=== PATIENT | female | born 1985 | race Caucasian/White ===

== ENCOUNTER 2024-06-05 08:09 | Emergency (ER) | payer BC ==
--- OUTSIDE RECORDS SUMMARY | 2024-06-05 08:13 | XMS REPORT | Continuity of Care Document ---
Author Name Unknown Address [address] [facility] [address] [place] [address] [facility] Address [address] [facility] [address] [place] [address] Care Team Providers Care Ob/Gyn Name Role Phone Rekha Loredo Primary Care Physician + [phone] SIMONA VIDAL Attending Clinician Unavailable ASPEN PERLA Attending Clinician Unavailable ASPEN PERLA Attending Clinician Unavailable Doctor Unassigned, Anselmo Attending Clinician U Aspen Carrizales MD Attending Clinician [phone] Rekha Loredo Attending Clinician [phone] KIA DOS SANTOS Attending Clinician Unavailab Aleja Valderrama PA-C Attending Clinician [phone] FLOWER MILLER Attending Clinician Unavailable Doctor Unassigned, Anselmo Attending Clinician U ALEJA Venegas Attending Clinician Unavailable Unknown, Attending Attending Clinician Unavailab Kia Yoon DNP Attending Clinician + [phone] REKHA WHITTAKER Attending Clinician Unavailable Pob, Adc Lab Main Attending Clinician Unavailabl e Lab, Ang - Db Attending Clinician Unavailable LIV QUEEN Attending Clinician Unavailable Rose Metzger MD Attending Clinician + [phone] ROSE METZGER Attending Clinician Unavaila ROSE Garcia Attending Clinician UnavailLiv Boles MD Attending Clinician [phone] GLADIS DIDIJERRY Attending Clinician Unavailable ASHLIE FERRELL Attending Clinician Unavaila NISHANT SparksO F Attending Clinician Unavaila daniel Loweunle [employer] Attending Clinician Nurse, [facility] Attending Clinician Un available ERNESTO TOLBERT III Attending Clinician UnavailErnesto Nava MD Attending Clinician + [phone] Sima Queen MD Attending Clinician Unavailradha Arango MD, Tiffany Auguste Attending Clinician + [phone] Marika Borjas LVN Attending Clinician [facility], [facility] Attending Clinician UnavailTIFFANY Veliz Attending Clinician UnavailSimona Gonzalez MD Attending Clinician [phone] DALE PADRON Attending Clinician Unavailable SIMONA VIDAL Admitting Clinician Unavailable ASPEN PERLA Admitting Clinician Unavailable ASPEN PERLA Admitting Clinician Unavailable BARTOLO MARISCAL Admitting Clinician Unavaila LIV Wilkes Admitting Clinician Unavailable Payers Payer Name Policy Type Policy Number Effective Date Expirati on Date Source [facility] [id number] 2018 00:00:00 Problems Condition Name Condition Details Condition Category Status Onset Date Resolution Date Last Treatment Date Treating Clinician Comments Source Presence of intrauteri ne contracept segun device Presence of intrauteri ne contracept segun device Disease Active 05-04 00:00: 00 [facility] Menorrhagi a with regular cycle Menorrhagi a with regular cycle Disease Active 05-26 00:00: 00 [facility] Obesity, Class I, BMI 30-34.9 Obesity, Class I, BMI 30-34.9 Disease Active - 00:00: 00 [facility] Obstructiv e sleep apnea syndrome Obstructiv e sleep apnea syndrome Disease Active 02-24 00:00: 00 [facility] COVID-19 vaccine series declined COVID-19 vaccine series declined Disease Active 2-11 00:00: 00 [facility] Thyroiditi s, autoimmune Thyroiditi s, autoimmune Disease Active 8-08 00:00: 00 [facility] Prediabete s Prediabete s Disease Active 05-14 00:00: 00 [facility] Iron deficiency anemia due to chronic blood loss Iron deficiency anemia due to chronic blood loss Disease Active 05-14 00:00: 00 [facility] Anxiety and depression Anxiety and depression Disease Active 2018-10 00:00: 00 [facility] Tinnitus of right ear Tinnitus of right ear Disease Active 2018-10 00:00: 00 [facility] Vertigo Vertigo Disease Active 11-30 00:00: 00 [facility] Allergic rhinitis Allergic rhinitis Disease Active [facility] Migraines Migraines Disease Active [facility] Low HDL (under 40) Low HDL (under 40) Disease Active [facility] Rectal bleeding Rectal bleeding Disease Resolve d 2019-10 00:00: 00 2024-02-23 00:00:00 2024-02-23 10:32:15 Overview: Formattin g of this note might be different from the original. Added automatic ally from request for surgery [id number] [facility] Right ear pain Right ear pain Disease Resolve d 2018-10 00:00: 00 2020-06-19 00:00:00 2020-06-19 14:47:38 [facility] Forgetfuln ess Forgetfuln ess Disease Resolve d 2018-10 00:00: 00 2019-11-08 00:00:00 2019-11-08 10:22:22 [facility] Allergies, Adverse Reactions, Alerts Allergy Name Allergy Type Status Severity Reaction(s) Onset Date Inactive Date Treating Clinician Comments Source CIPROFLO XACIN DRUG INGREDI Active Unknown-Cmnt 02-22 00:00: 00 [facility] Ciproflo xacin Propensi ty to adverse reaction s Active Unknown - See comments - 00:00: 00 [facility] LIRAGLUT AILIN (WEIGHT LOSS) DRUG Active N/V 2-16 00:00: 00 [facility] Liraglut ailin (Weight Loss) Propensi ty to adverse reaction s Active Unknown - See comments 2-16 00:00: 00 Body aches, cramps [facility] Amoxicil simba Propensi ty to adverse reaction s Active Hives 2018-10 00:00: 00 [facility] AMOXICIL SIMBA DRUG INGREDI Active Hives 2018-1 11-20 00:00: 00 [facility] Clindamy nick Propensi ty to adverse reaction s Active Anaphylaxis 2018-0 04-26 00:00: 00 [facility] Penicill ins Propensi ty to adverse reaction s Active Anaphylaxis 2018-0 04-26 00:00: 00 ALL CILLINS [facility] CLINDAMY NICK DRUG INGREDI Active Anaphylaxis 2018-0 04-26 00:00: 00 [facility] CEPHALEX IN DRUG INGREDI Active Anaphylaxis 2018-0 04-26 00:00: 00 [facility] PENICILL INS Drug Class Active Anaphylaxis 2018-0 04-26 00:00: 00 [facility] Cephalex in Propensi ty to adverse reaction s Active Anaphylaxis 2018-0 04-26 00:00: 00 [facility] Social History Social Habit Start Date Stop Date Quantity Comments Source History of tobacco use Cigarette Smoker [facility] Gender identity [facility] History SDOH Alcohol Std Drinks [facility] History SDOH Alcohol Comment [place] [facility] Alcoholic beverage intake 2024-05-20 00:00:00 2024-05-20 00:00:00 Ex-drinker (finding) [facility] Tobacco use and exposure 2024-03-12 00:00:00 2024-03-12 00:00:00 Smokeless tobacco non-user [facility] History of Social function 2024-03-01 00:00:00 2024-03-01 00:00:00 [facility] Alcohol intake 2024-03-01 00:00:00 2024-03-01 00:00:00 Ex-drinker (finding) [facility] Cigarettes smoked current (pack per day) - Reported 2023-05-04 00:00:00 2023-05-04 00:00:00 [facility] Exposure to SARS-CoV-2 (event) 2023-04-16 00:00:00 2023-04-26 08:31:00 Not sure [facility] Tobacco Comment 2022-12-15 00:00:00 2022-12-15 00:00:00 Occasional. Not daily. [facility] History SDOH Alcohol Frequency 2019-04-26 00:00:00 2019-04-26 00:00:00 2 [facility] History SDOH Alcohol Binge 2019-04-26 00:00:00 2019-04-26 00:00:00 2 [facility] Sex assigned at 1985 00:00:00 1985 00:00:00 [facility] Smoking Status Start Date Stop Date Source Ex-smoker 2024-03-12 00:00:00 [facility]24[facility]03[facility]12 [facility] 2019-04-26 00:00:00 [facility] Medications Ordered Medication Name Filled Medication Name Start Date Stop Date Current Medication? Ordering Clinician Indication Dosage Frequency Signature (SIG) Comments Components Source BUSPIRONE 5 mg tablet 04-24 00:00: 00 Yes [id number] TAKE ONE (1) TABLET BY MOUTH 2 (TWO) TIMES DAILY NEEDED. [facility] cetirizine 10 mg tablet 03-28 00:00: 00 Yes [id number] 10mg Take 1 tablet by mouth in the morning. [facility] bromphenira mine-pseudo ephedrine-D M (BROMFED DM) 2-30-10 mg/5 mL syrup 03-28 00:00: 00 Yes [id number] 5mL Take 5 mL by mouth 3 (three) times daily as needed for Cold symptoms or Cough. [facility] fluticasone propionate 50 mcg/actuati on nasal spray 03-28 00:00: 00 Yes [id number] 2{spray } Use 2 Sprays in each nostril in the morning. [facility] ibuprofen 800 mg tablet 03-28 00:00: 00 Yes [id number] 800mg Take 1 tablet by mouth in the morning and 1 tablet at noon and 1 tablet in the evening. Take with meals. [facility] fexofenadin e HCl (ARIANA ORAL) 03-12 16:07: 19 Yes Take by mouth. [facility] propranoloL 20 mg tablet 03-12 00:00: 00 Yes [id number] 20mg Take 1 tablet by mouth in the morning. [facility] sumatriptan 100 mg tablet 03-12 00:00: 00 Yes [id number] 100mg Take 1 tablet by mouth as needed for Migraine (Max of 2 tablets/da y.). [facility] meclizine 12.5 mg tablet 03-12 00:00: 00 Yes [id number] 12.5mg Take 1 tablet by mouth 3 (three) times daily as needed for Dizziness. [facility] INTRAUTERIN E DEVICE, IUD, INTRAUTERIN E 03-01 15:03: 47 Yes by Intrauteri ne route. [facility] fexofenadin e HCl (ARIANA ORAL) 03-01 15:03: 47 Yes Take by mouth. [facility] methocarbam oL 500 mg tablet 03-01 00:00: 00 Yes [id number] 500mg Take 1 tablet by mouth 2 (two) times daily as needed (back pain/spasm ). [facility] busPIRone 5 mg tablet 03-01 00:00: 00 04-24 00:00 :00 No [id number] 5mg Take 1 tablet by mouth 2 (two) times daily as needed (anxiety). [facility] methylPREDN ISolone 4 mg tablets 04-23 00:00: 00 Yes 10mg Take 10 mg by mouth. [facility] hydrOXYzine 25 mg tablet 6-21 00:00: 00 Yes TAKE ONE (1) TABLET(S) BY MOUTH EVERY FOUR TO SIX HOURS. [facility] orlistat 60 mg capsule 5-05 00:00: 00 Yes [id number] 60mg Take 1 capsule by mouth in the morning and 1 capsule at noon and 1 capsule in the evening. Take with meals. [facility] busPIRone 5 mg tablet 3-16 00:00: 00 Yes [id number] 5mg Take 1 tablet by mouth 2 (two) times daily as needed (anxiety). [facility] loratadine 10 mg tablet 16 00:00: 00 Yes [id number] 10mg Take 1 tablet by mouth in the morning. [facility] FLUoxetine 10 mg capsule 12-15 14:30: 15 12-15 00:00 :00 No 10mg Take 10 mg by mouth in the morning. [facility] ketorolac (TORADOL) injection 30 mg 16 03:00: 00 12-15 02:04 :00 No 30mg 30 mg, Slow IV Push, ONCE, 1 dose, On Mon12/14/22 at 2100, Routine [facility] acetaminoph en (TYLENOL) tablet 1,000 mg 12-15 01:30: 00 12-15 01:19 :00 No 1000mg 1,000 mg, Oral, ONCE, 1 dose, On Mon12/14/22 at 1930, Routine [facility] NaCl 0.9% (NS) bolus infusion 1,000 mL 16 01:15: 00 12-15 03:04 :00 No 1000mL at 999 mL/hr, 1,000 mL, IV Infusion, ONCE, 1 dose, On Mon12/14/22 at 1915, KAIN [facility] busPIRone 5 mg tablet 16 00:00: 00 01-12 00:00 :00 No [id number] 5mg Take 1 tablet by mouth 2 (two) times daily as needed (anxiety). [facility] ibuprofen 600 mg tablet 2-15 00:00: 00 Yes [id number] 600mg Take 1 tablet by mouth every 6 (six) hours as needed for Pain (scale 4-6). [facility] BUSPIRONE 15 mg tablet 1-19 00:00: 00 12-15 00:00 :00 No [id number] TAKE ONE (1) TABLET(S) BY MOUTH TWICE A DAY NEEDED FOR ANXIETY. [facility] BUSPIRONE 15 mg tablet 2021-10 2-14 00:00: 00 Yes [id number] TAKE ONE (1) TABLET BY MOUTH 2 TIMES DAILY NEEDED FOR (ANXIETY). [facility] busPIRone 15 mg tablet 2021-10-11 00:00: 00 10-12 00:00 :00 No [id number] 15mg Take 1 tablet by mouth 2 (two) times daily as needed (anxiety). Follow-up for refills and fasting labs. [facility] liraglutide , weight loss, (SAXENDA) 3 mg/0.5 mL (18 mg/3 mL) PnIj 2021-10 00:00: 00 12-15 00:00 :00 No [id number] 4107 Take 0.6mg daily for a week , then increase to 1.2mg daily for a week if tolerate, then increase to 1.8mg daily for a week if tolerate, then increase to 2.4mg daily for a week if tolerate, then increase to 3.0mg dailymax dose tolerate, [facility] FEXOFENADIN E 180 mg tablet 2021-10- 00:00: 00 01-12 00:00 :00 No [id number] TAKE ONE (1) TABLET(S) BY MOUTH ONCE A DAY. [facility] FLUoxetine 10 mg capsule 2021-10 0 15:40: 39 Yes 10mg Take 10 mg by mouth in the morning. [facility] levonorgest reL (KYLEENA) IUD 1 Device 06-29 22:45: 06-29 22:18 :00 No [id number] 1{devic e} [facility] BUSPIRONE 15 mg tablet 8 00:00: 09-09 00:00 :00 No [id number] TAKE ONE-HALF TO ONE (1/2 TO 1) TABLET(S) BY MOUTH TWICE A DAY NEEDED FOR ANXIETY. [facility] medroxyPROG ESTERone (PROVERA) 10 mg tablet 05-26 00:00: 00 06-29 00:00 :00 No [id number] 20mg Take 2 tablets by mouth in the morning. [facility] miSOPROStoL 200 mcg tablet 05-26 00:00: 00 06-29 00:00 :00 No [id number] 200ug Take 1 tablet by mouth SEE-INSTRU CTIONS. Take one tab the night before and one tab the morning of procedure [facility] miSOPROStoL 200 mcg tablet 5-24 00:00: 00 04-07 00:00 :00 No [id number] Take one tablet night before procedure, then take one tablet morning of procedure [facility] FEXOFENADIN E 180 mg tablet 02-23 00:00: 00 09-05 00:00 :00 No [id number] TAKE ONE (1) TABLET(S) BY MOUTH ONCE A DAY. [facility] BUSPIRONE 15 mg tablet 02-23 00:00: 00 05-31 00:00 :00 No [id number] TAKE 1/2 TO 1 TABLET TWICE DAILY NEED FOR ANXIETY. [facility] FEXOFENADIN E 180 mg tablet 2020-10 2-20 00:00: 00 02-23 00:00 :00 No [id number] TAKE ONE (1) TABLET(S) BY MOUTH ONCE A DAY. [facility] FLUTICASONE PROPIONATE 50 mcg/actuati on nasal spray 05-02 00:00: 00 03-12 00:00 :00 No [id number] INSTILL TWO (2) SPRAY(S) INTO EACH NOSTRIL ONCE A DAY. [facility] BUSPIRONE 15 mg tablet -28 00:00: 02-23 00:00 :00 No [id number] TAKE 1/2 TO 1 TABLET TWICE DAILY NEED FOR ANXIETY. [facility] FEXOFENADIN E 180 mg tablet 2019-10 00:00: 10-18 00:00 :00 No [id number] TAKE ONE (1) TABLET(S) BY MOUTH ONCE A DAY. [facility] FLUTICASONE PROPIONATE 50 mcg/actuati on nasal spray 2019-10 00:00: 00 05-02 00:00 :00 No [id number] INSTILL TWO (2) SPRAY(S) INTO EACH NOSTRIL ONCE A DAY. [facility] busPIRone 15 mg tablet 2019-10 00:00: 02-24 00:00 :00 No [id number] 7.5mg Take 0.5-1 tablets by mouth 2 (two) times daily as needed (anxiety). [facility] FLUoxetine 20 mg capsule 2019-10 00:00: 11-09 00:00 :00 No [id number] 20mg Take 1 capsule by mouth every morning. [facility] Ferrous Fumarate (FERROCITE) 324 mg (106 mg iron) Tab 8- 00:00: 00 12-10 00:00 :00 No [id number] 1{tbl} Take 1 tablet by mouth daily. Take with a source of vitamin C [facility] FLUoxetine 10 mg capsule 7-09 00:00: 00 09-18 00:00 :00 No [id number] 10mg Take 1 capsule by mouth daily. [facility] fluticasone propionate 50 mcg/actuati on nasal spray 2018-10 00:00: 00 10-15 00:00 :00 No [id number] 2{spray } Use 2 Sprays in each nostril daily. [facility] fexofenadin e 180 mg tablet 2018-10 00:00: 00 10-15 00:00 :00 No [id number] 180mg Take 1 tablet by mouth daily. [facility] Immunizations Ordered Immunization Name Filled Immunization Name Date Status Comments Source TDAP 2020-08-27 00:00:00 Completed [facility] TDAP 2020-08-27 00:00:00 Completed [facility] TDAP 2020-08-27 00:00:00 Completed [facility] TDAP 2020-08-27 00:00:00 Completed [facility] TDAP 2020-08-27 00:00:00 Completed [facility] TDAP 2020-08-27 00:00:00 Completed [facility] TDAP 2020-08-27 00:00:00 Completed [facility] TDAP 2020-08-27 00:00:00 Completed [facility] TDAP 2020-08-27 00:00:00 Completed [facility] TDAP 2020-08-27 00:00:00 Completed [facility] TDAP 2020-08-27 00:00:00 Completed [facility] TDAP 2020-08-27 00:00:00 Completed [facility] TDAP 2020-08-27 00:00:00 Completed [facility] TDAP 2020-08-27 00:00:00 Completed [facility] TDAP 2020-08-27 00:00:00 Completed [facility] TDAP 2020-08-27 00:00:00 Completed [facility] TDAP 2020-08-27 00:00:00 Completed [facility] TDAP 2020-08-27 00:00:00 Completed [facility] TDAP 2020-08-27 00:00:00 Completed [facility] TDAP 2020-08-27 00:00:00 Completed [facility] TDAP 2020-08-27 00:00:00 Completed [facility] TDAP 2020-08-27 00:00:00 Completed [facility] TDAP 2020-08-27 00:00:00 Completed [facility] TDAP 2020-08-27 00:00:00 Completed [facility] TDAP 2020-08-27 00:00:00 Completed [facility] TDAP 2020-08-27 00:00:00 Completed [facility] TDAP 2020-08-27 00:00:00 Completed [facility] TDAP 2020-08-27 00:00:00 Completed [facility] TDAP 2020-08-27 00:00:00 Completed [facility] TDAP 2020-08-27 00:00:00 Completed [facility] TDAP 2020-08-27 00:00:00 Completed [facility] TDAP 2020-08-27 00:00:00 Completed [facility] TDAP 2020-08-27 00:00:00 Completed [facility] TDAP 2020-08-27 00:00:00 Completed [facility] TDAP 2020-08-27 00:00:00 Completed [facility] TDAP 2020-08-27 00:00:00 Completed [facility] TDAP 2020-08-27 00:00:00 Completed [facility] TDAP 2020-08-27 00:00:00 Completed [facility] Pneumococcal Polysaccharide, PPSV23 (PNEUMOVAX) 2020-05-07 00:00:00 Completed [facility] Pneumococcal Polysaccharide, PPSV23 (PNEUMOVAX) 2020-05-07 00:00:00 Completed [facility] Pneumococcal Polysaccharide, PPSV23 (PNEUMOVAX) 2020-05-07 00:00:00 Completed [facility] Pneumococcal Polysaccharide, PPSV23 (PNEUMOVAX) 2020-05-07 00:00:00 Completed [facility] Pneumococcal Polysaccharide, PPSV23 (PNEUMOVAX) 2020-05-07 00:00:00 Completed [facility] Pneumococcal Polysaccharide, PPSV23 (PNEUMOVAX) 2020-05-07 00:00:00 Completed [facility] Pneumococcal Polysaccharide, PPSV23 (PNEUMOVAX) 2020-05-07 00:00:00 Completed [facility] Pneumococcal Polysaccharide, PPSV23 (PNEUMOVAX) 2020-05-07 00:00:00 Completed [facility] Pneumococcal Polysaccharide, PPSV23 (PNEUMOVAX) 2020-05-07 00:00:00 Completed [facility] Pneumococcal Polysaccharide, PPSV23 (PNEUMOVAX) 2020-05-07 00:00:00 Completed [facility] Pneumococcal Polysaccharide, PPSV23 (PNEUMOVAX) 2020-05-07 00:00:00 Completed [facility] Pneumococcal Polysaccharide, PPSV23 (PNEUMOVAX) 2020-05-07 00:00:00 Completed [facility] Pneumococcal Polysaccharide, PPSV23 (PNEUMOVAX) 2020-05-07 00:00:00 Completed [facility] Pneumococcal Polysaccharide, PPSV23 (PNEUMOVAX) 2020-05-07 00:00:00 Completed [facility] Pneumococcal Polysaccharide, PPSV23 (PNEUMOVAX) 2020-05-07 00:00:00 Completed [facility] Pneumococcal Polysaccharide, PPSV23 (PNEUMOVAX) 2020-05-07 00:00:00 Completed [facility] Pneumococcal Polysaccharide, PPSV23 (PNEUMOVAX) 2020-05-07 00:00:00 Completed [facility] Pneumococcal Polysaccharide, PPSV23 (PNEUMOVAX) 2020-05-07 00:00:00 Completed [facility] Pneumococcal Polysaccharide, PPSV23 (PNEUMOVAX) 2020-05-07 00:00:00 Completed [facility] Pneumococcal Polysaccharide, PPSV23 (PNEUMOVAX) 2020-05-07 00:00:00 Completed [facility] Pneumococcal Polysaccharide, PPSV23 (PNEUMOVAX) 2020-05-07 00:00:00 Completed [facility] Pneumococcal Polysaccharide, PPSV23 (PNEUMOVAX) 2020-05-07 00:00:00 Completed [facility] Pneumococcal Polysaccharide, PPSV23 (PNEUMOVAX) 2020-05-07 00:00:00 Completed [facility] Pneumococcal Polysaccharide, PPSV23 (PNEUMOVAX) 2020-05-07 00:00:00 Completed [facility] Pneumococcal Polysaccharide, PPSV23 (PNEUMOVAX) 2020-05-07 00:00:00 Completed [facility] Pneumococcal Polysaccharide, PPSV23 (PNEUMOVAX) 2020-05-07 00:00:00 Completed [facility] Pneumococcal Polysaccharide, PPSV23 (PNEUMOVAX) 2020-05-07 00:00:00 Completed [facility] Pneumococcal Polysaccharide, PPSV23 (PNEUMOVAX) 2020-05-07 00:00:00 Completed [facility] Pneumococcal Polysaccharide, PPSV23 (PNEUMOVAX) 2020-05-07 00:00:00 Completed [facility] Pneumococcal Polysaccharide, PPSV23 (PNEUMOVAX) 2020-05-07 00:00:00 Completed [facility] Pneumococcal Polysaccharide, PPSV23 (PNEUMOVAX) 2020-05-07 00:00:00 Completed [facility] Pneumococcal Polysaccharide, PPSV23 (PNEUMOVAX) 2020-05-07 00:00:00 Completed [facility] Pneumococcal Polysaccharide, PPSV23 (PNEUMOVAX) 2020-05-07 00:00:00 Completed [facility] Pneumococcal Polysaccharide, PPSV23 (PNEUMOVAX) 2020-05-07 00:00:00 Completed [facility] Pneumococcal Polysaccharide, PPSV23 (PNEUMOVAX) 2020-05-07 00:00:00 Completed [facility] Pneumococcal Polysaccharide, PPSV23 (PNEUMOVAX) 2020-05-07 00:00:00 Completed [facility] Pneumococcal Polysaccharide, PPSV23 (PNEUMOVAX) 2020-05-07 00:00:00 Completed [facility] Pneumococcal Polysaccharide, PPSV23 (PNEUMOVAX) 2020-05-07 00:00:00 Completed [facility] Pneumococcal Polysaccharide, PPSV23 (PNEUMOVAX) Unknown Completed [facility] TDAP Unknown Completed [facility] Pneumococcal Polysaccharide, PPSV23 (PNEUMOVAX) Unknown Completed [facility] TDAP Unknown Completed [facility] Pneumococcal Polysaccharide, PPSV23 (PNEUMOVAX) Unknown Completed [facility] TDAP Unknown Completed [facility] Pneumococcal Polysaccharide, PPSV23 (PNEUMOVAX) Unknown Completed [facility] TDAP Unknown Completed [facility] Pneumococcal Polysaccharide, PPSV23 (PNEUMOVAX) Unknown Completed [facility] TDAP Unknown Completed [facility] Pneumococcal Polysaccharide, PPSV23 (PNEUMOVAX) Unknown Completed [facility] TDAP Unknown Completed [facility] Pneumococcal Polysaccharide, PPSV23 (PNEUMOVAX) Unknown Completed [facility] TDAP Unknown Completed [facility] Pneumococcal Polysaccharide, PPSV23 (PNEUMOVAX) Unknown Completed [facility] TDAP Unknown Completed [facility] Pneumococcal Polysaccharide, PPSV23 (PNEUMOVAX) Unknown Completed [facility] TDAP Unknown Completed [facility] Pneumococcal Polysaccharide, PPSV23 (PNEUMOVAX) Unknown Completed [facility] TDAP Unknown Completed [facility] Pneumococcal Polysaccharide, PPSV23 (PNEUMOVAX) Unknown Completed [facility] Pneumococcal Polysaccharide, PPSV23 (PNEUMOVAX) Unknown Completed [facility] TDAP Unknown Completed [facility] Pneumococcal Polysaccharide, PPSV23 (PNEUMOVAX) Unknown Completed [facility] TDAP Unknown Completed [facility] Pneumococcal Polysaccharide, PPSV23 (PNEUMOVAX) Unknown Completed [facility] TDAP Unknown Completed [facility] Pneumococcal Polysaccharide, PPSV23 (PNEUMOVAX) Unknown Completed [facility] TDAP Unknown Completed [facility] Pneumococcal Polysaccharide, PPSV23 (PNEUMOVAX) Unknown Completed [facility] TDAP Unknown Completed [facility] Pneumococcal Polysaccharide, PPSV23 (PNEUMOVAX) Unknown Completed [facility] TDAP Unknown Completed [facility] Pneumococcal Polysaccharide, PPSV23 (PNEUMOVAX) Unknown Completed [facility] TDAP Unknown Completed [facility] Pneumococcal Polysaccharide, PPSV23 (PNEUMOVAX) Unknown Completed [facility] TDAP Unknown Completed [facility] Pneumococcal Polysaccharide, PPSV23 (PNEUMOVAX) Unknown Completed [facility] TDAP Unknown Completed [facility] Pneumococcal Polysaccharide, PPSV23 (PNEUMOVAX) Unknown Completed [facility] TDAP Unknown Completed [facility] Pneumococcal Polysaccharide, PPSV23 (PNEUMOVAX) Unknown Completed [facility] TDAP Unknown Completed [facility] Pneumococcal Polysaccharide, PPSV23 (PNEUMOVAX) Unknown Completed [facility] TDAP Unknown Completed [facility] Pneumococcal Polysaccharide, PPSV23 (PNEUMOVAX) Unknown Completed [facility] TDAP Unknown Completed [facility] Pneumococcal Polysaccharide, PPSV23 (PNEUMOVAX) Unknown Completed [facility] TDAP Unknown Completed [facility] Pneumococcal Polysaccharide, PPSV23 (PNEUMOVAX) Unknown Completed [facility] TDAP Unknown Completed [facility] Pneumococcal Polysaccharide, PPSV23 (PNEUMOVAX) Unknown Completed [facility] TDAP Unknown Completed [facility] Pneumococcal Polysaccharide, PPSV23 (PNEUMOVAX) Unknown Completed [facility] TDAP Unknown Completed [facility] Pneumococcal Polysaccharide, PPSV23 (PNEUMOVAX) Unknown Completed [facility] TDAP Unknown Completed [facility] Pneumococcal Polysaccharide, PPSV23 (PNEUMOVAX) Unknown Completed [facility] TDAP Unknown Completed [facility] Pneumococcal Polysaccharide, PPSV23 (PNEUMOVAX) Unknown Completed [facility] TDAP Unknown Completed [facility] Pneumococcal Polysaccharide, PPSV23 (PNEUMOVAX) Unknown Completed [facility] TDAP Unknown Completed [facility] Pneumococcal Polysaccharide, PPSV23 (PNEUMOVAX) Unknown Completed [facility] TDAP Unknown Completed [facility] Pneumococcal Polysaccharide, PPSV23 (PNEUMOVAX) Unknown Completed [facility] TDAP Unknown Completed [facility] Pneumococcal Polysaccharide, PPSV23 (PNEUMOVAX) Unknown Completed [facility] TDAP Unknown Completed [facility] Pneumococcal Polysaccharide, PPSV23 (PNEUMOVAX) Unknown Completed [facility] TDAP Unknown Completed [facility] Pneumococcal Polysaccharide, PPSV23 (PNEUMOVAX) Unknown Completed [facility] TDAP Unknown Completed [facility] Pneumococcal Polysaccharide, PPSV23 (PNEUMOVAX) Unknown Completed [facility] TDAP Unknown Completed [facility] Pneumococcal Polysaccharide, PPSV23 (PNEUMOVAX) Unknown Completed [facility] TDAP Unknown Completed [facility] Pneumococcal Polysaccharide, PPSV23 (PNEUMOVAX) Unknown Completed [facility] TDAP Unknown Completed [facility] Pneumococcal Polysaccharide, PPSV23 (PNEUMOVAX) Unknown Completed [facility] TDAP Unknown Completed [facility] Pneumococcal Polysaccharide, PPSV23 (PNEUMOVAX) Unknown Completed [facility] TDAP Unknown Completed [facility] Pneumococcal Polysaccharide, PPSV23 (PNEUMOVAX) Unknown Completed [facility] TDAP Unknown Completed [facility] Vital Signs Vital Name Observation Time Observation Value Comments S ource Systolic blood pressure 2024-05-20 20:25:00 124 mm[Hg] [facility] Diastolic blood pressure 2024-05-20 20:25:00 83 mm[Hg] [facility] Heart rate 2024-05-20 20:25:00 105 /min [facility] Body temperature 2024-05-20 20:25:00 36.56 Beronica [facility] Respiratory rate 2024-05-20 20:25:00 16 /min [facility] Body height 2024-05-20 20:25:00 154.9 cm [facility] Body weight 2024-05-20 20:25:00 85.276 kg [facility] BMI 2024-05-20 20:25:00 35.52 kg/m2 [facility] Systolic blood pressure 2024-03-28 23:41:00 127 mm[Hg] [facility] Diastolic blood pressure 2024-03-28 23:41:00 84 mm[Hg] [facility] Heart rate 2024-03-28 23:41:00 59 /min [facility] Body temperature 2024-03-28 23:41:00 36.89 Beronica [facility] Respiratory rate 2024-03-28 23:41:00 17 /min [facility] Body weight 2024-03-28 23:41:00 82.691 kg [facility] BMI 2024-03-28 23:41:00 34.45 kg/m2 [facility] Oxygen saturation in Arterial blood by Pulse oximetry 2024-03-28 23:41:00 100 /min [facility] Body temperature 2024-03-18 14:42:00 36.56 Beronica [facility] Body height 2024-03-18 14:42:00 154.9 cm [facility] Body weight 2024-03-18 14:42:00 83.054 kg Univ [facility] BMI 2024-03-18 14:42:00 34.60 kg/m2 [facility] Systolic blood pressure 2024-03-12 21:01:00 117 mm[Hg] [facility] Diastolic blood pressure 2024-03-12 21:01:00 80 mm[Hg] [facility] Heart rate 2024-03-12 21:01:00 94 /min [facility] Respiratory rate 2024-03-12 21:01:00 18 /min [facility] Body height 2024-03-12 21:01:00 154.9 cm [facility] Body weight 2024-03-12 21:01:00 84.278 kg [facility] BMI 2024-03-12 21:01:00 35.11 kg/m2 [facility] Systolic blood pressure 2024-03-01 19:00:00 111 mm[Hg] [facility] Diastolic blood pressure 2024-03-01 19:00:00 71 mm[Hg] [facility] Heart rate 2024-03-01 19:00:00 98 /min [facility] Body temperature 2024-03-01 19:00:00 36.89 Beronica [facility] Body height 2024-03-01 19:00:00 154.9 cm [facility] Body weight 2024-03-01 19:00:00 83.915 kg [facility] BMI 2024-03-01 19:00:00 34.96 kg/m2 [facility] Oxygen saturation in Arterial blood by Pulse oximetry 2024-03-01 19:00:00 98 /min [facility] Systolic blood pressure 2024-03-01 18:57:00 111 mm[Hg] [facility] Diastolic blood pressure 2024-03-01 18:57:00 71 mm[Hg] [facility] Heart rate 2024-03-01 18:57:00 98 /min [facility] Body temperature 2024-03-01 18:57:00 36.89 Beronica [facility] Body height 2024-03-01 18:57:00 154.9 cm Univ [facility] Body weight 2024-03-01 18:57:00 83.915 kg [facility] BMI 2024-03-01 18:57:00 34.96 kg/m2 Univ [facility] Oxygen saturation in Arterial blood by Pulse oximetry 2024-03-01 18:57:00 98 /min [facility] Systolic blood pressure 2023-05-04 20:10:00 118 mm[Hg] [facility] Diastolic blood pressure 2023-05-04 20:10:00 78 mm[Hg] [facility] Heart rate 2023-05-04 20:10:00 99 /min [facility] Body temperature 2023-05-04 20:10:00 36.89 Beronica [facility] Body height 2023-05-04 20:10:00 154.9 cm Univ [facility] Body weight 2023-05-04 20:10:00 80.559 kg Univ [facility] BMI 2023-05-04 20:10:00 33.56 kg/m2 [facility] Systolic blood pressure 2023-04-26 16:28:00 110 mm[Hg] [facility] Diastolic blood pressure 2023-04-26 16:28:00 75 mm[Hg] [facility] Heart rate 2023-04-26 16:28:00 73 /min [facility] Respiratory rate 2023-04-26 16:28:00 19 /min [facility] Body height 2023-04-26 16:28:00 154.9 cm [facility] Body weight 2023-04-26 16:28:00 79.969 kg Univ [facility] BMI 2023-04-26 16:28:00 33.31 kg/m2 Univ [facility] Oxygen saturation in Arterial blood by Pulse oximetry 2023-04-26 16:28:00 98 /min [facility] Systolic blood pressure 2023-03-01 20:52:00 117 mm[Hg] [facility] Diastolic blood pressure 2023-03-01 20:52:00 76 mm[Hg] [facility] Heart rate 2023-03-01 20:52:00 84 /min [facility] Body temperature 2023-03-01 20:52:00 37.11 Beronica [facility] Respiratory rate 2023-03-01 20:52:00 18 /min [facility] Body height 2023-03-01 20:52:00 154.9 cm Univ [facility] Body weight 2023-03-01 20:52:00 81.829 kg Univ [facility] BMI 2023-03-01 20:52:00 34.09 kg/m2 Univ [facility] Oxygen saturation in Arterial blood by Pulse oximetry 2023-03-01 20:52:00 98 /min [facility] Systolic blood pressure 2023-01-12 20:59:00 120 mm[Hg] [facility] Diastolic blood pressure 2023-01-12 20:59:00 81 mm[Hg] [facility] Heart rate 2023-01-12 20:59:00 92 /min [facility] Body temperature 2023-01-12 20:59:00 37.22 Beronica [facility] Body height 2023-01-12 20:59:00 154.9 cm Univ [facility] Body weight 2023-01-12 20:59:00 73.619 kg [facility] BMI 2023-01-12 20:59:00 30.67 kg/m2 [facility] Oxygen saturation in Arterial blood by Pulse oximetry 2023-01-12 20:59:00 100 /min [facility] Systolic blood pressure 2022-12-15 19:53:00 122 mm[Hg] [facility] Diastolic blood pressure 2022-12-15 19:53:00 75 mm[Hg] [facility] Heart rate 2022-12-15 19:53:00 88 /min [facility] Body temperature 2022-12-15 19:53:00 37.39 Beronica [facility] Body height 2022-12-15 19:53:00 154.9 cm [facility] Body weight 2022-12-15 19:53:00 81.149 kg Univ [facility] BMI 2022-12-15 19:53:00 33.80 kg/m2 [facility] Oxygen saturation in Arterial blood by Pulse oximetry 2022-12-15 19:53:00 100 /min [facility] Systolic blood pressure 2022-12-15 05:01:00 110 mm[Hg] [facility] Diastolic blood pressure 2022-12-15 05:01:00 66 mm[Hg] [facility] Heart rate 2022-12-15 05:01:00 68 /min [facility] Respiratory rate 2022-12-15 05:01:00 21 /min [facility] Oxygen saturation in Arterial blood by Pulse oximetry 2022-12-15 05:01:00 100 /min [facility] Body temperature 2022-12-15 00:18:00 37.28 Beronica [facility] Body height 2022-12-15 00:18:00 154.9 cm [facility] Body weight 2022-12-15 00:18:00 79.833 kg [facility] BMI 2022-12-15 00:18:00 33.25 kg/m2 [facility] Systolic blood pressure 2022-12-14 23:40:00 126 mm[Hg] [facility] Diastolic blood pressure 2022-12-14 23:40:00 82 mm[Hg] [facility] Heart rate 2022-12-14 23:39:00 91 /min [facility] Body temperature 2022-12-14 23:39:00 37.22 Beronica [facility] Respiratory rate 2022-12-14 23:39:00 16 /min [facility] Body height 2022-12-14 23:39:00 154.9 cm [facility] Body weight 2022-12-14 23:39:00 79.833 kg [facility] BMI 2022-12-14 23:39:00 33.25 kg/m2 [facility] Oxygen saturation in Arterial blood by Pulse oximetry 2022-12-14 23:39:00 98 /min [facility] Systolic blood pressure 2022-09-06 21:59:00 115 mm[Hg] [facility] Diastolic blood pressure 2022-09-06 21:59:00 79 mm[Hg] [facility] Heart rate 2022-09-06 21:59:00 82 /min [facility] Body height 2022-09-06 21:59:00 154.9 cm [facility] Body weight 2022-09-06 21:59:00 79.379 kg Univ [facility] BMI 2022-09-06 21:59:00 33.07 kg/m2 [facility] Oxygen saturation in Arterial blood by Pulse oximetry 2022-09-06 21:59:00 100 /min [facility] Systolic blood pressure 2022-08-01 20:38:00 129 mm[Hg] [facility] Diastolic blood pressure 2022-08-01 20:38:00 76 mm[Hg] [facility] Heart rate 2022-08-01 20:38:00 52 /min [facility] Body temperature 2022-08-01 20:38:00 37.06 Beronica [facility] Respiratory rate 2022-08-01 20:38:00 16 /min [facility] Body height 2022-08-01 20:38:00 154.9 cm Univ [facility] Body weight 2022-08-01 20:38:00 77.565 kg Univ [facility] BMI 2022-08-01 20:38:00 32.31 kg/m2 [facility] Systolic blood pressure 2022-06-29 20:41:00 110 mm[Hg] [facility] Diastolic blood pressure 2022-06-29 20:41:00 73 mm[Hg] [facility] Heart rate 2022-06-29 20:41:00 89 /min [facility] Body temperature 2022-06-29 20:41:00 37 Beronica [facility] Respiratory rate 2022-06-29 20:41:00 18 /min [facility] Body height 2022-06-29 20:41:00 154.9 cm [facility] Body weight 2022-06-29 20:41:00 77.293 kg [facility] BMI 2022-06-29 20:41:00 32.20 kg/m2 [facility] Procedures Procedure Date / Time Performed Performing Clinician Source POCT URINALYSIS W/O SPECIFIC GRAVITY 2024-05-20 00:00:00 Aspen Perla [facility] POCT SARS-COV-2 ANTIGEN (BINAX NOW) 2024 00:14:00 Aleja Cunha [facility] POCT MOLECULAR STREP 2024-03-28 23:39:00 Unknown, Atte myke [facility] CT HEAD WO CONTRAST 2024-03-18 21:12:36 Flower Miller [facility] XR LUMBAR SPINE 4 VW 2024-03-12 20:18:25 Mily Whittaker [facility] XR SACRUM AND COCCYX 2024-03-12 20:18:25 Mily Whittaker [facility] XR CERVICAL SPINE 3 VW 2024-03-12 20:18:25 Mil Whittaker [facility] MAGNESIUM 2024-03-02 13:27:00 Rekha Whittaker [facility] VITAMIN B12, LEVEL 2024-03-02 13:27:00 Rekha Whittaker [facility] FOLATE 2024-03-02 13:27:00 Rekha Whittaker [facility] FREE T4 2024-03-02 13:27:00 Rekha Whittaker [facility] THYROID STIMULATING HORMONE 2024-03-02 13:27:00 Rekha Whittaker [facility] COMP. METABOLIC PANEL (51189) 2024-03-02 13:27:00 Rekha Whittaker [facility] LIPID PANEL (48351)(TOTAL CHOLESTEROL, TRIGLYCERIDES, HDL) 2024-03-02 13:27:00 Rekha Whittaker [facility] CBC WITH DIFF 2024-03-02 13:27:00 Rekha Whittaker [facility] GLYCOSYLATED HEMOGLOBIN (A1C) 2024-03-02 13:27:00 Rekha Whittaker [facility] CORTISOL AM 2024-03-02 13:27:00 [facility]ekha [facility]aker [facility] INSULIN, LEVEL 2024-03-02 13:27:00 [facility], 25-OH 2024-03-02 13:27:00 Rekha Whittaker [facility] POCT TEST 2024-03-01 00:00:00 Rekha Whittaker [facility] CONSENT/REFUSAL FOR DIAGNOSIS AND TREATMENT 2023-06-16 19:35:06 Doctor Unassigned, Anselmo [facility] DME/SUPPLY JUSTIFICATION 2023-03-01 05:01:00 Doc tor Unassigned, Anselmo [facility] TROPONIN I 2022-12-15 03:24:00 Bartolo Mariscal [facility] LIPASE 2022-12-15 00:50:00 Bartolo Mariscal [facility] TROPONIN I 2022-12-15 00:50:00 Bartolo Mariscal [facility] FREE T4 2022-12-15 00:50:00 Bartolo Mariscal [facility] THYROID STIMULATING HORMONE 2022-12-15 00:50:00 Bartolo Mariscal [facility] COMP. METABOLIC PANEL (19624) 2022-12-15 00:50:00 Bartolo Mariscal [facility] CBC WITH DIFF 2022-12-15 00:50:00 Bartolo Mariscal [facility] URINALYSIS 2022-12-15 00:50:00 Bartolo Mariscal [facility] N-TERMINAL PRO-BNP 2022-12-15 00:50:00 Shima Mariscal [facility] POCT TEST 2022-12-15 00:45:00 Diallo Mariscal [facility] ASSIGNMENT OF BENEFITS 2022-12-14 23:34:19 Docto r Unassigned, Anselmo [facility] MEDICATION CORRESPONDENCE 2022-09-29 06:01:00 Do ctor Unassigned, Anselmo [facility] TSH- 2022-09-07 17:10:00 Sima Queen [facility] THYROXINE (T4) FREE, DIRECT, S- 2022-09-07 17:10:00 Sima Queen [facility] TRIIODOTHYRONINE (T3)- 2022-09-07 17:10:00 Khadijah Queen [facility] POCT TEST 2022-06-29 20:57:00 Aspen Perla [facility] ULTRAS[facility] 2022-06-29 05:01:00 Doc tor Unassigned, Anselmo [facility] Encounters Start Date/Time End Date/Time Encounter Type Admission Type Attending [facility] Care Facility Care Department Encounter ID Source 2021-08-28 08:19:33 Outpatient R SIMONA VIDAL [facility] [id number] [facility] 2021-08-28 06:06:14 Emergency [facility] [id number] [facility] 2025-05-23 08:00:00 2025-05-23 08:00:00 Outpatient R ASPEN PERLA VIEN [facility] [id number] [facility] 2024-06-04 00:00:00 2024-06-04 16:48:16 Patient Secure Msg Doctor Unassigned, Anselmo Doctor Unassigned, Anselmo [id number] [facility] 2024-06-03 00:00:00 2024-06-03 15:03:37 Case Management Aspen Perla [id number] [facility] 2024-05-31 00:00:00 2024-05-31 16:37:25 Telephone Aspen Perla [facility] [id number] [facility] 2024-05-28 00:00:00 2024-05-29 16:31:11 Patient Secure Msg Aspen [facility] [id number] [facility] 2024-05-26 10:47:33 2024-05-26 23:59:00 Outpatient R PERLABRAVOASPEN BAILEY [facility] [id number] [facility] 2024-05-26 10:47:33 2024-05-26 23:59:00 Hospital Encounter PerlaAspen Allen [facility] [id number] [facility] 2024-05-15 00:00:00 2024-05-22 11:08:43 Patient Secure g Rekha Whittaker [facility] [id number] 4.2.7.2.686 [id number] [facility] 2024-05-20 15:30:00 2024-05-20 15:43:12 Outpatient R PERLABRAVOASPEN BAILEY [facility] [id number] [facility] 2024-05-20 15:30:00 2024-05-20 15:43:12 Office Visit Aspen Perla [facility] 1.2.840.114 350.1.13.10 4.2.7.2.686 [id number] [facility] 2024-05-07 15:00:00 2024-05-07 15:00:00 Outpatient R ASPEN PERLA [facility] [id number] [facility] 2024-04-24 00:00:00 2024-04-24 07:35:01 Refill ElkeRekha [facility] 1.2.840.114 350.1.13.10 4.2.7.2.686 [id number] [id number] [facility] 2024-04-24 00:00:00 2024-04-24 07:32:53 Refill Aleja Cunha [facility] ELIN[facility] 1.2840.114 350.1.13.10 4.2.7.2.686 [id number] [facility] 2024-04-16 00:00:00 2024-04-19 10:21:06 Refill Rekha Whittaker [facility] 1.2840.114 350.1.13.10 4.2.7.2.686 [id number] [id number] [facility] 2024-03-02 00:00:00 2024-04-06 18:02:59 Patient Secure Msg Doctor Unassigned, Anselmo [facility] 1.2840.114 350.1.13.10 4.2.7.2.686 [id number] [facility] 2024-03-28 18:20:00 2024-03-28 19:09:06 Outpatient R ALEJA CUNHA [facility] [id number] [facility] 2024-03-28 18:20:00 2024-03-28 19:09:06 Urgent Care Aleja Cunha Unknown, Attending [facility] 1.2.840.114 350.1.13.10 4.2.7.2.686 [id number] [facility] 2024-03-28 00:00:00 2024-03-28 09:39:13 Letter (Out) [facility] 1.2.840.114 350.1.13.10 4.2.7.2.686 [id number] [facility] 2024-03-27 00:00:00 2024-03-27 11:24:21 Letter (Out) [facility] 1.2.840.114 350.1.13.10 4.2.7.2.686 [id number] [facility] 2024-03-18 15:16:32 2024-03-18 23:59:00 Hospital Encounter Flower Miller [facility] 1.2.840.114 350.1.13.10 4.2.7.2.686 [id number] [facility] 2024-03-18 10:00:00 2024-03-18 10:20:00 Office Visit Raya [facility] 1.2.840.114 350.1.13.10 4.2.7.2.686 [id number] [facility] 2024-03-18 10:00:00 2024-03-18 10:10:06 Outpatient R RAYA [facility] [id number] [facility] 2024-03-18 10:00:00 2024-03-18 10:00:00 Outpatient R RAYA [facility] [id number] [facility] 2024-03-12 14:47:26 2024-03-12 23:59:00 Hospital Encounter Rekha Whittaker [facility] 1.2.840.114 350.1.13.10 4.2.7.2.686 [id number] [facility] 2024-03-12 16:00:00 2024-03-12 16:24:24 [facility] [id number] 2024-03-12 16:00:00 2024-03-12 16:24:24 Office Visit Flower Miller [facility] 1.2840.114 350.1.13.10 4.2.7.2.686 [id number] [facility] 2024-03-12 00:00:00 2024-03-12 15:41:49 Patient Secure Msg Rekha Whittaker [facility] ELIN?[facility] 1.2840.114 350.1.13.10 4.2.7.2.686 [id number] [id number] [facility] 2024-03-06 00:00:00 2024-03-06 14:31:08 Patient Secure Msg Doctor Unassigned, Anselmo [facility] EL[facility] 1.2840.114 350.1.13.10 4.2.7.2.686 [id number] [id number] [facility] 2024-03-02 08:00:00 2024-03-02 08:15:00 Cam Specialist Visit Nafisa Logan Main Rekha Whittaker [facility] 1.840.114 350.1.13.10 4.2.7.2.686 [id number] [facility] 2024-03-02 08:00:00 2024-03-02 08:00:00 Outpatient R REKHA WHITTAKER [facility] [id number] [facility] 2024-03-01 15:00:00 2024-03-01 15:15:00 Cam Specialist Visit Alejandro Tompkins Leslie A [facility] EL[facility] 1.2840.114 350.1.13.10 4.2.7.2.686 [id number] [facility] 2024-03-01 14:30:00 2024-03-01 14:43:54 Outpatient R REKHA WHITTAKER [facility] [id number] [facility] 2024-03-01 14:30:00 2024-03-01 14:43:54 Office Visit Rekha Whittaker [facility] ELIN?[facility] 1.2840.114 350.1.13.10 4.2.7.2.686 [id number] [id number] [facility] 2024-03-01 14:00:00 2024-03-01 14:43:47 Office Visit Rekha Whittaker [facility] ELIN?[facility] 1.840.114 350.1.13.10 4.2.7.2.686 [id number] 044 [id number] [facility] 2024-02-24 00:00:00 2024-02-24 00:00:00 Refill Rekha Whittaker [facility] ELIN?[facility] 1.0.114 350.1.13.10 4.2.7.2.686 [id number] [id number] [facility] 2023-06-16 14:36:53 2023-06-16 23:59:00 Outpatient R ASPEN PERLA [facility] [id number] [facility] 2023-06-16 14:36:53 2023-06-16 23:59:00 Hospital Encounter Aspen Perla [facility] 1.0.114 350.1.13.10 4.2.7.2.686 [id number] [facility] 2023-06-16 00:00:00 2023-06-16 00:00:00 Orders Only Doctor Unassigned, Anselmo [facility] 1.840.114 350.1.13.10 4.2.7.2.686 [id number] [facility] 2023-05-04 15:00:00 2023-05-04 15:12:59 Office Visit Aspen Perla Allen [facility] 1.2.840.114 350.1.13.10 4.2.7.2.686 [id number] [facility] 2023-05-04 15:00:00 2023-05-04 15:12:59 Outpatient R ASPEN PERLA [facility] [id number] [facility] 2023-04-26 11:30:00 2023-04-26 12:00:00 Office Visit Rose Metzger [facility] 1..840.114 350.1.13.10 4.2.7.2.686 [id number] [facility] 2023-04-26 11:30:00 2023-04-26 11:30:00 Outpatient R ROSE METZGER STRAHIL [facility] [id number] [facility] 2023-03-01 16:00:00 2023-03-01 16:30:00 Office Visit Rose Metzger [facility] 1..840.114 350.1.13.10 4.2.7.2.686 [id number] [facility] 2023-03-01 16:00:00 2023-03-01 16:00:00 Outpatient R ROSE METZGER STRAHIL [facility] [id number] [facility] 2023-03-01 00:00:00 2023-03-01 00:00:00 Telephone Rose Metzger [facility] 1..840.114 350.1.13.10 4.2.7.2.686 [id number] [facility] 2023-03-01 00:00:00 2023-03-01 00:00:00 Telephone Liv Queen [facility] 1.2840.114 350.1.13.10 4.2.7.2.686 [id number] [facility] 2023-03-01 00:00:00 2023-03-01 00:00:00 Orders Only Doctor Unassigned, Anselmo [facility] 1.0.114 350.1.13.10 4.2.7.2.686 [id number] [facility] 2023-02-01 13:00:00 2023-02-01 13:00:00 Outpatient R EDDIE GRIFFITH [facility] [id number] [facility] 2023-01-16 00:00:00 2023-01-16 00:00:00 Patient Secure Msg Doctor Unassigned, Anselmo [facility] 1.20.114 350.1.13.10 4.2.7.2.686 [id number] [facility] 2023-01-12 16:00:00 2023-01-12 16:27:16 Outpatient R REKHA WHITTAKER [facility] [id number] [facility] 2023-01-12 16:00:00 2023-01-12 16:27:16 Office Visit Rekha Whittaker [facility] 1.84.114 350.1.13.10 4.2.7.2.686 [id number] [id number] [facility] 2023-01-12 00:00:00 2023-01-12 00:00:00 Telephone Rose Metzger [facility] NAL BUILD[facility] 1.2840.114 350.1.13.10 4.2.7.2.686 [id number] [facility] 2023-01-12 00:00:00 2023-01-12 00:00:00 Telephone [facility] 1.2840.114 350.1.13.10 4.2.7.2.686 [id number] [facility] 2022-12-15 14:00:00 2022-12-15 14:44:11 Outpatient R REKHA WHITTAKER [facility] [id number] [facility] 2022-12-15 14:00:00 2022-12-15 14:44:11 Office Visit Rekha Whittaker [facility] 1.2840.114 350.1.13.10 4.2.7.2.686 [id number] [id number] [facility] 2022-12-15 00:00:00 2022-12-15 00:00:00 [facility] 1.20.114 350.1.13.10 4.2.7.2.686 [id number] [facility] 2022-12-14 18:19:00 2022-12-14 23:23:00 Emergency X BARTOLO MARISCAL [facility] [id number] [facility] 2022-12-14 18:19:00 2022-12-14 23:23:00 Emergency Bartolo Mariscal F [facility] 1.2840.114 350.1.13.10 4.2.7.2.686 [id number] [facility] 2022-12-14 17:45:00 2022-12-14 17:45:00 Nurse Visit Nurse, Alejandro Dominguez Urgent Care Unknown, Attending [facility] 1.2840.114 350.1.13.10 4.2.7.2.686 [id number] [facility] 2022-12-14 17:45:00 2022-12-14 17:43:54 Outpatient ERNESTO ALVAREZ III [facility] [id number] [facility] 2022-12-14 00:00:00 2022-12-14 00:00:00 Orders Only Doctor Unassigned, Anselmo [facility] 1.2840.114 350.1.13.10 4.2.7.2.686 [id number] [facility] 2022-11-09 00:00:00 2022-11-09 00:00:00 Refill Ernesto Schofield [facility] 1.284.114 350.1.13.10 4.2.7.2.686 [id number] [id number] [facility] 2022-10-12 00:00:00 2022-10-12 00:00:00 Refill Rekha Whittaker [facility] EL[facility] 1.84114 350.1.13.10 4.2.7.2.686 [id number] 044 [id number] [facility] 2022-10-05 00:00:00 2022-10-05 00:00:00 Telephone Liv Queen [facility] 1.84114 350.1.13.10 4.2.7.2.686 [id number] 220 [id number] [facility] 2022-09-29 00:00:00 2022-09-29 00:00:00 Orders Only Doctor Unassigned, Anselmo [facility] 1.2114 350.1.13.10 4.2.7.2.686 [id number] [facility] 2022-09-09 00:00:00 2022-09-09 00:00:00 Refill Rekha Whittaker [facility] ELIN?[facility] 1.84.114 350.1.13.10 4.2.7.2.686 [id number] 044 [id number] [facility] 2022-09-07 00:00:00 2022-09-07 00:00:00 Orders Only Sima Queen [facility] 1.114 350.1.13.10 4.2.7.2.686 [id number] [facility] 2022-09-06 16:00:00 2022-09-06 16:43:40 Outpatient R EVAN [facility] [id number] [facility] 2022-09-06 16:00:00 2022-09-06 16:43:40 Office Visit Evan [facility] ELIN?[facility] 1.84.114 350.1.13.10 4.2.7.2.686 [id number] [facility] 2022-09-06 16:00:00 2022-09-06 16:00:00 [facility] [id number] [facility] 2022-09-06 00:00:00 2022-09-06 00:00:00 Telephone Evan [facility] ELIN?[facility] 1.84.114 350.1.13.10 4.2.7.2.686 [id number] [facility] 2022-08-28 00:00:00 2022-08-28 00:00:00 Refill Rekha Whittaker Molina [facility] 1.84.114 350.1.13.10 4.2.7.2.686 [id number] 044 [id number] [facility] 2022-08-10 00:00:00 2022-08-10 00:00:00 Refill Tiffany Arango [facility] 1..840.114 350.1.13.10 4.2.7.2.686 [id number] [facility] 2022-08-01 15:30:00 2022-08-01 15:52:06 Outpatient R ASPEN PERLA [facility] [id number] [facility] 2022-08-01 15:30:00 2022-08-01 15:52:06 [facility] 1.2840.114 350.1.13.10 4.2.7.2.686 [id number] [facility] 2022-06-29 15:30:00 2022-06-29 16:27:33 Outpatient R MINDA [facility] [id number] [facility] 2022-06-29 15:30:00 2022-06-29 16:27:33 [facility] 1.84.114 350.1.13.10 4.2.7.2.686 [id number] [facility] 2022-06-29 00:00:00 2022-06-29 00:00:00 Orders Only Doctor Unassigned, Anselmo [facility] 1.2840.114 350.1.13.10 4.2.7.2.686 [id number] [facility] 2022-05-26 15:15:21 2022-05-26 23:59:00 Outpatient R ASPEN PERLA [facility] [id number] [facility] 2022-05-26 15:00:00 2022-05-26 23:59:00 Hospital Encounter Aspen Perla [facility] 1.0.114 350.1.13.10 4.2.7.2.686 [id number] [facility] 2022-05-26 14:30:00 2022-05-26 15:01:25 Outpatient R ASPEN PERLA [facility] [id number] [facility] 2022-05-26 14:30:00 2022-05-26 15:01:25 Office Visit Aspen Perla [facility] 1.2.840.114 350.1.13.10 4.2.7.2.686 [id number] [facility] 2022-05-26 14:30:00 2022-05-26 14:30:00 Outpatient R ASPEN PERLA [facility] [id number] [facility] 2022-05-25 00:00:00 2022-05-25 00:00:00 Refill Rekha Whittaker [facility] 1.2.840.114 350.1.13.10 4.2.7.2.686 [id number] [id number] [facility] 2022-05-12 00:00:00 2022-05-12 00:00:00 Patient Secure Liv Martinez [facility] 1.2.840.114 350.1.13.10 4.2.7.2.686 [id number] [facility] 2022-05-09 15:15:00 2022-05-09 16:21:35 Outpatient R ASPEN PERLA [facility] [id number] [facility] 2022-05-09 15:15:00 2022-05-09 16:21:35 Office Visit Aspen Perla [facility] 1.2.840.114 350.1.13.10 4.2.7.2.686 [id number] [facility] 2022-05-09 15:15:00 2022-05-09 16:21:35 Outpatient R ASPEN PERLA [facility] [id number] [facility] 2022-05-09 15:15:00 2022-05-09 16:21:35 Outpatient R ASPEN PERLA [facility] [id number] [facility] 2022-04-15 13:15:00 2022-04-15 13:30:00 Cam Specialist Visit Lab, Rekha Vitale [facility] 1.2.840.114 350.1.13.10 4.2.7.2.686 [id number] [facility] 2022-04-15 13:15:00 2022-04-15 13:15:00 Outpatient R REKHA WHITTAKER [facility] [id number] [facility] 2022-04-08 08:00:39 2022-04-08 23:59:00 Outpatient R [facility] [id number] [facility] 2022-04-08 08:00:00 2022-04-08 23:59:00 Hospital Encounter Evan [facility] 1.2.840.114 350.1.13.10 4.2.7.2.686 [id number] [facility] 2022-04-08 00:00:00 2022-04-08 00:00:00 Outpatient R EVAN [facility] [id number] [facility] 2022-04-07 13:15:00 2022-04-07 14:03:44 Office Visit Aspen Perla [facility] N[facility] BUILD[facility] 1.2.840.114 350.1.13.10 4.2.7.2.686 [id number] [facility] 2022-04-07 13:15:00 2022-04-07 14:03:44 Outpatient R ASPEN PERLA [facility] [id number] [facility] 2022-04-07 13:15:00 2022-04-07 13:15:00 Outpatient R ASPEN PERLA [facility] [id number] [facility] 2022-04-05 00:00:00 2022-04-05 00:00:00 Patient Secure Msg [facility] 1.2.840.114 350.1.13.10 4.2.7.2.686 [id number] 134 [id number] [facility] 2022-04-05 00:00:00 2022-04-05 00:00:00 Telephone Aspen Perla [facility] 1.2.840.114 350.1.13.10 4.2.7.2.686 [id number] [facility] 2022-03-30 08:00:00 2022-03-30 08:00:00 Outpatient R [facility] [id number] [facility] 2022-03-30 00:00:00 2022-03-30 00:00:00 Patient Secure Msg [facility] 1.2.840.114 350.1.13.10 4.2.7.2.686 [id number] [facility] 2022 16:00:00 2022 16:20:10 Outpatient R EVAN [facility] [id number] [facility] 2022 16:00:00 2022 16:15:00 Cam Specialist Visit Lab, Ang - Db Evan [facility] 1.2.840.114 350.1.13.10 4.2.7.2.686 [id number] [facility] 2022 15:30:00 2022 16:05:22 Outpatient R EVAN [facility] [id number] [facility] 2022 15:30:00 2022 16:05:22 Office Visit Liv Queen [facility] 1..114 350.1.13.10 4.2.7.2.686 [id number] 220 [id number] [facility] 2022-03-24 00:00:00 2022-03-24 00:00:00 Patient Secure Msg Marika Borjas [facility] 1..114 350.1.13.10 4.2.7.2.686 [id number] [id number] [facility] 2022-03-22 15:45:00 2022-03-22 16:07:33 Office [facility] 1.114 350.1.13.10 4.2.7.2.686 [id number] [facility] 2022-03-22 15:45:00 2022-03-22 16:07:33 Outpatient R [facility] [id number] [facility] 2022-03-22 15:45:00 2022-03-22 15:45:00 Outpatient R ALPHONSE [facility] [id number] [facility] 2022-03-07 00:00:00 2022-03-07 00:00:00 Patient Secure Msg Doctor Unassigned, Anselmo [facility] 1..114 350.1.13.10 4.2.7.2.686 [id number] [facility] 2022-02-24 00:00:00 2022-02-24 00:00:00 Telephone Rekha Whittaker [facility] 1..114 350.1.13.10 4.2.7.2.686 [id number] [facility] 2022-02-22 08:00:00 2022-02-22 08:15:00 Cam Specialist Visit [facility] Sleep [facility] Rose Metzger T [facility] 1.284.114 350.1.13.10 4.2.7.2.686 [id number] [facility] 2022-02-22 08:00:00 2022-02-22 08:00:00 Outpatient R ROSE METZGER [facility] [id number] [facility] 2022-02-22 00:00:00 2022-02-22 00:00:00 Patient Secure Msg Doctor Unassigned, Anselmo [facility] 1.2.114 350.1.13.10 4.2.7.2.686 [id number] [facility] 2022-02-22 00:00:00 2022-02-22 00:00:00 Orders Only Doctor Unassigned, Anselmo [facility] 1.114 350.1.13.10 4.2.7.2.686 [id number] [facility] 2022-02-21 00:00:00 2022-02-21 00:00:00 Patient Secure Msg Rekha Whittaker [facility] 1.84.114 350.1.13.10 4.2.7.2.686 [id number] [facility] 2022-02-20 00:00:00 2022-02-20 00:00:00 Telephone Rekha Whittaker [facility] 1.284.114 350.1.13.10 4.2.7.2.686 [id number] [facility] 2022-02-20 00:00:00 2022-02-20 00:00:00 Tiffany Marinelli [facility] 1.114 350.1.13.10 4.2.7.2.686 [id number] [facility] 2022-02-17 07:30:00 2022-02-17 07:45:00 Cam Specialist Visit Lab, Ang - Rekha Carter [facility] 1.114 350.1.13.10 4.2.7.2.686 [id number] [facility] 2022-02-17 07:30:00 2022-02-17 07:30:00 Outpatient R REKHA WHITTAKER [facility] [id number] [facility] 2022-02-17 07:30:00 2022-02-17 07:30:00 Outpatient R REKHA WHITTAKER [facility] [id number] [facility] 2022-02-16 08:00:00 2022-02-16 08:51:57 Outpatient R REKHA WHITTAKER [facility] [id number] [facility] 2022-02-16 08:00:00 2022-02-16 08:51:57 Office Visit Rekha Whittaker Molina [facility] 1.114 350.1.13.10 4.2.7.2.686 [id number] [facility] 2022-01-13 00:00:00 2022-01-13 00:00:00 Orders Only Doctor Unassigned, [facility] 1.114 350.1.13.10 4.2.7.2.686 [id number] [facility] 2021-12-14 00:00:00 2021-12-14 00:00:00 Patient Secure Msg Doctor Unassigned, [facility] 1.2.840.114 350.1.13.10 4.2.7.2.686 [id number] [facility] 2021-12-14 00:00:00 2021-12-14 00:00:00 Patient Secure Msg Doctor Unassigned, [facility] 1.2.114 350.1.13.10 4.2.7.2.686 [id number] [facility] 2021-12-10 12:00:00 2021-12-10 12:15:00 Cam Specialist Visit Lab, Ang - Db FortineTiffany bentley [facility] 1.84114 350.1.13.10 4.2.7.2.686 [id number] [facility] 2021-12-10 12:00:00 2021-12-10 12:00:00 Outpatient R CONCHITA TIPCLARISSA [facility] [id number] [facility] 2021-12-10 10:45:00 2021-12-10 11:25:17 Office Visit ConchitaTipclarissa Molina [facility] 1.84.114 350.1.13.10 4.2.7.2.686 [id number] [facility] 2021-12-10 10:45:00 2021-12-10 11:25:17 Outpatient R CONCHITA TIPCLARISSA [facility] [id number] [facility] 2021-12-10 10:45:00 2021-12-10 11:25:17 Outpatient R CONCHITA TIPCLARISSA [facility] [id number] [facility] 2021-12-10 00:00:00 2021-12-10 00:00:00 Orders Only Doctor Unassigned, [facility] 1.284.114 350.1.13.10 4.2.7.2.686 [id number] [facility] 2021-10-18 00:00:00 2021-10-18 00:00:00 Tiffany Marinelli [facility] ..840.114 350.1.13.10 4.2.7.2.686 [id number] [facility] 2021-07-02 00:00:00 2021-07-02 00:00:00 Tiffany Marinelli [facility] ..840.114 350.1.13.10 4.2.7.2.686 [id number] [facility] 2021-05-07 09:30:00 2021-05-07 09:30:00 [facility] [id number] [facility] 2021-04-27 15:45:00 2021-04-27 15:45:00 Outpatient ALEJA AVALOS [facility] [id number] [facility] 2020-11-06 10:30:00 2020-11-06 10:30:00 [facility] [id number] [facility] 2020-10-19 00:00:00 2020-10-19 00:00:00 Patient Secure g Simona Vidal [facility] ..840.114 [id number] [facility] 2020-10-16 00:00:00 2020-10-16 00:00:00 Patient Secure Msg Doctor Unassigned, Anselmo [facility] 1..840.114 [id number] [facility] 2020-10-13 14:15:00 2020-10-13 14:15:00 Outpatient R SIMONA VIDAL [facility] [id number] [facility] 2020-10-09 09:00:00 2020-10-09 09:00:00 Outpatient Kristie PADRON DALE [facility] [id number] [facility] 2020-10-01 14:15:00 2020-10-01 14:15:00 Outpatient SIMONA HERRERA [facility] [id number] [facility] 2020-09-18 16:15:00 2020-09-18 16:15:00 Outpatient TIFFANY RAINES [facility] [id number] [facility] 2020-09-17 11:00:00 2020-09-17 11:00:00 Outpatient Kristie CASEYVIDALSIMONA [facility] [id number] [facility] 2020-07-17 14:00:00 2020-07-17 14:00:00 Outpatient Kristie PADRON DALE [facility] [id number] [facility] 2020-06-05 00:00:00 2020-06-05 00:00:00 Patient Secure Msg Doctor Unassigned, Anselmo [facility] [employer] [facility] [id number] [facility] 2020-06-04 11:15:00 2020-06-04 11:15:00 Outpatient TIFFANY RAINES [facility] [id number] [facility] 2020-05-08 09:00:00 2020-05-08 09:00:00 Outpatient TIFFANY RAINES [facility] [id number] [facility] 2020-05-08 08:00:00 2020-05-08 08:00:00 Outpatient TIFFANY RAINES [facility] [id number] [facility] 2020-05-07 15:45:00 2020-05-07 15:45:00 Outpatient TIFFANY RAINES [facility] [id number] [facility] 2020-05-07 15:45:00 2020-05-07 15:45:00 Outpatient TIFFANY RAINES [facility] [id number] [facility] 2020-04-27 15:30:00 2020-04-27 15:30:00 Outpatient ALEJA AVALOS [facility] [id number] [facility] Results Test Description Test Time Test Comments Results Result Co mments Source [facility] SARS-COV-2 ANTIGEN (BINAX NOW)2024 00:14:00* Test Item Value Reference Range Interpretation Comme nts POCT SARS-COV-2 ANTIGEN (test code = 57181-8) Not Detected Not Detected On board controls acceptable with C Line (test code = 3574) Yes HEAVEN (test code = HEAVEN) accurate developme nt and interpretation of all internal controls Lab Interpretation (test code = 16934-6) Normal [facility] MOLECULAR [id number] 23:46:42* Test Item Value Reference Range Interpretation Comme nts POCT Molecular Strep (test c ode = 10742-2) Negative Negative Lab Interpretation (test cod e = 98697-3) Normal [facility] MOLECULAR [id number] 23:46:42* Test Item Value Reference Range Interpretation Comme nts POCT Molecular Strep (test c ode = 85084-6) Negative Negative Lab Interpretation (test cod e = 36603-9) Normal [facility] WO [id number] 21:25:39EXAM: CT HEAD WO CONTRAST HISTORY: Headache, chronic, new features or increased frequency TECHNIQUE: CT of the head was performed without intravenous contrast.Sagittal and coronal reformats were generated. COMPARISON: None. FINDINGS: The ventricles and sulci are normal in caliber and configuration. Nohydrocephalus, midline shift or pathological extra-axial fluid collectionis present. The basal cisterns are unremarkable. There is no acute intracranial hemorrhage or significant mass effect. Noparenchymal attenuation abnormality. The alva-white matter differentiationis preserved. The mastoid aircells and paranasal air sinuses are clear. The calvariumand central skull base are unremarkable.[facility] LUMBAR SPINE 4 [id number] 21:37:46XR LUMBAR SPINE 4 VW, XR CERVICAL SPINE 3 VW, XR SACRUM AND COCCYX HISTORY: Female 38 years chronicb/l low back pain w/o sciatica COMPARISON: None FINDINGS: Cervical spine: The vertebral bodies are normal in height and in normal alignment. Theatlantodental space is normal. The prevertebral soft tis sues areunremarkable. No significant degenerative changes are present. No acute osseousabnormality.Lumbar spine and sacrum: The vertebral bodies are normal in height and in normal alignment. Minimaldegenerative changes are present. No acute osseous abnormality. Obliqueradiographs demonstrate no evidence of spondylolysis. The sacrum and coccyx are unremarkable. An IUD overlies the pelvisB[facility] and [facility]iscoXR SACRUM AND [id number] 21:37:46 XR LUMBAR SPINE 4 VW, XR CERVICAL SPINE 3 VW, XR SACRUM AND COCCYX HISTORY: Female 38 years chronicb/l low back pain w/o sciatica COMPARISON: None FINDINGS: Cervical spine: The vertebral bodies are normal in height and in normal alignment. Theatlantodental space is normal. The prevertebral soft tissues areunremarkable. No significant degenerative changes are present. No acute osseousabnormality.Lumbar spine and sacrum: The vertebral bodies are normal in height and in normal alignment. Minimaldegenerative changes are present. No acute osseous abnormality. Obliqueradiographs demonstrate no evidence of spondylolysis. The sacrum and coccyx are unremarkable. An IUD overlies the pelvisB[facility] and [facility]iscoXR CERVICAL SPINE 3 [id number] 21:37:46XR LUMBAR SPINE 4 VW, XR CERVICAL SPINE 3 VW, XR SACRUM AND COCCYX HISTORY: Female 38 years chronicb/l low back pain w/o sciatica COMPARISON: None FINDINGS: Cervical spine: The vertebral bodies are normal in height and in normal alignment. Theatlantodental space is normal. The prevertebral soft tis sues areunremarkable. No significant degenerative changes are present. No acute osseousabnormality.Lumbar spine and sacrum: The vertebral bodies are normal in height and in normal alignment. Minimaldegenerative changes are present. No acute osseous abnormality. Obliqueradiographs demonstrate no evidence of spondylolysis. The sacrum and coccyx are unremarkable. An IUD overlies the pelvisBaylor Scott and [facility] Center – FriscoVitamin D, [id number] 14:34:26* Test Item Value Reference Range Interpretation Comme nts VIT D 25OH (test code = 36954-2) 24 ng/mL 25-80 L HEAVEN (test code = HEAVEN) Deficiency: <20 ng/mLInsufficiency: 20-24 ng/mLOptimal: 25-80 ng/mL Lab Interpretation (test code = 08075-2) Abnormal [facility] FriscoInsulin, [id number] 17:42:09* Test Item Value Reference Range Interpretation Comme nts Insulin (test code = 4718922888) 10.0 1.9-23.0 Lab Interpretation (test cod e = 70935-7) Normal [facility] FriscoCortisol [id number] 22:15:14* Test Item Value Reference Range Interpretation Comme nts HUE AM (test code = 4450358355) 14.3 ug/dL 4.5-23.0 HEAVEN (test code = HEAVEN) Biotin has been reported to cause a positive bias, interpret results relative to patient's use of biotin. Lab Interpretation (test code = 89626-3) Normal [facility] FriscoFolate2024-05-04 21:18:31* Test Item Value Reference Range Interpretation Comme nts FOLATE SER (test code = 4141370593) 6.5 ng/mL 3.0-20.0 Lab Interpretation (test cod e = 92987-8) Normal [facility]iscoVitamin B12, [id number] 21:18:31* Test Item Value Reference Range Interpretation Comme nts VIT B12 (test code = 4150403699) 305 pg/mL 240-930 HEAVEN (test code = HEAVEN) Biotin has been reported to cause a positive bias, interpret results relative to patient's use of biotin. Lab Interpretation (test code = 69294-7) Normal [facility]iscoFolate2024-05-04 21:18:31* Test Item Value Reference Range Interpretation Comme nts FOLATE SER (test code = 4837759414) 6.5 ng/mL 3.0-20.0 Lab Interpretation (test cod e = 71655-0) Normal [facility] FriscoVitamin B12, [id number] 21:18:31* Test Item Value Reference Range Interpretation Comme nts VIT B12 (test code = 8435593689) 305 pg/mL 240-930 HEAVEN (test code = HEAVEN) Biotin has been reported to cause a positive bias, interpret results relative to patient's use of biotin. Lab Interpretation (test code = 32445-3) Normal [facility] FriscoGlycosylated Hemoglobin (A1C)2024-03-02 19:20:24* Test Item Value Reference Range Interpretation Comme nts HGB A1C (test code = 4548-4) 5.6 % 4.0-5.7 HEAVEN (test code = HEAVEN) Reference RangesNormal: <5.7%Prediabetes: 5.7 - 6.4%Diabetes: > 6.5% Lab Interpretation (test code = 28125-4) Normal [facility]iscoGlycosylated Hemoglobin (A1C)2024-03-02 19:20:24* Test Item Value Reference Range Interpretation Comme nts HGB A1C (test code = 4548-4) 5.6 % 4.0-5.7 HEAVEN (test code = HEAVEN) Reference RangesNormal: <5.7%Prediabetes: 5.7 - 6.4%Diabetes: > 6.5% Lab Interpretation (test code = 45969-7) Normal [facility] FriscoThyroid Stimulating [id number] 15:17:56 * Test Item Value Reference Range Interpretation Comme nts TSH (test code = 0765803354) 3.89 0.45-4.70 Lab Interpretation (test cod e = 81598-5) Normal [facility] FriscoThyroid Stimulating [id number] 15:17:56 * Test Item Value Reference Range Interpretation Comme nts TSH (test code = 5578535071) 3.89 0.45-4.70 Lab Interpretation (test cod e = 22477-1) Normal [facility] [id number] 15:03:55* Test Item Value Reference Range Interpretation Comme nts FREE T4 (test code = 2941037849) 1.21 0.78-2.20 Lab Interpretation (test cod e = 36061-4) Normal [facility] [id number] 15:03:55* Test Item Value Reference Range Interpretation Comme nts FREE T4 (test code = 8827042267) 1.21 0.78-2.20 Lab Interpretation (test cod e = 49174-2) Normal [facility] FriscoLipid Panel (84711)(Total Cholesterol, Triglycerides, HDL)2024-03-02 14:47:49* Test Item Value Reference Range Interpretation Comme nts CHOL (test code = 9394347266) 155 mg/dL 120-200 HDL (test code = 0129410725) 30 mg/dL >=50 L HDLC RATIO (test code = 3329966330) 5.2 <=4.5 H TRIG (test code = 1735373124) 73 mg/dL 30-170 LDL CHOL (test code = 30307-2) 110 mg/dL <=160 VLDL (test code = 5883735266) 15 mg/dL 5-60 Lab Interpretation (test cod e = 09718-9) Abnormal [facility] FriscoLipid Panel (10068)(Total Cholesterol, Triglycerides, HDL)2024-03-02 14:47:49* Test Item Value Reference Range Interpretation Comme nts CHOL (test code = 3816322097) 155 mg/dL 120-200 HDL (test code = 3483349869) 30 mg/dL >=50 L HDLC RATIO (test code = 0991405575) 5.2 <=4.5 H TRIG (test code = 3002783366) 73 mg/dL 30-170 LDL CHOL (test code = 20832-1) 110 mg/dL <=160 VLDL (test code = 6882500613) 15 mg/dL 5-60 Lab Interpretation (test cod e = 37763-0) Abnormal [facility] FriscoComp. Metabolic Panel (53376)2024-03-02 14:47:29* Test Item Value Reference Range Interpretation Comme nts NA (test code = 6123033270) 136 mmol/L 135-145 K (test code = 2543843153) 5.0 mmol/L 3.5-5.0 CL (test code = 0730402083) 100 mmol/L 98-108 CO2 TOTAL (test code = 7543088877) 28 mmol/L 23-31 AGAP (test code = 0834083660) 8 2-16 BUN (test code = 6461218872) 15 mg/dL 7-23 GLUCOSE (test code = 5680715418) 94 mg/dL 70-110 CREATININE (test code = 2160-0) 0.86 mg/dL 0.50-1.04 TOTAL BILI (test code = 3018867134) 1.0 mg/dL 0.1-1.1 CALCIUM (test code = 3357459422) 9.3 mg/dL 8.6-10.6 T PROTEIN (test code = 6933189681) 6.8 g/dL 6.3-8.2 ALBUMIN (test code = 9742897441) 4.1 g/dL 3.5-5.0 ALK PHOS (test code = 7462022616) 85 U/L 34-122 ALTv (test code = 1742-6) 14 U/L 5-35 AST(SGOT) (test code = 6008837123) 19 U/L 13-40 eGFR (test code = 28834-9) 87.7 mL/min/1.73m2 CKD-EPI eGFR (20 21). Assuming creatinine has been stable day-to-day for at least three months, the eGFR indicates Category G2 (60 - 89 mL/min/1.73 m2) [facility] FriscoMagnesium2024-05-04 14:47:29* Test Item Value Reference Range Interpretation Comme nts MAGNESIUM (test code = 3850510544) 2.1 mg/dL 1.7-2.4 Lab Interpretation (test cod e = 22938-4) Normal [facility]iscoComp. Metabolic Panel (01222)2024-03-02 14:47:29* Test Item Value Reference Range Interpretation Comme nts NA (test code = 7529223925) 136 mmol/L 135-145 K (test code = 4706232255) 5.0 mmol/L 3.5-5.0 CL (test code = 4199647886) 100 mmol/L 98-108 CO2 TOTAL (test code = 6485533444) 28 mmol/L 23-31 AGAP (test code = 8193188246) 8 2-16 BUN (test code = 5494860488) 15 mg/dL 7-23 GLUCOSE (test code = 7063262841) 94 mg/dL 70-110 CREATININE (test code = 2160-0) 0.86 mg/dL 0.50-1.04 TOTAL BILI (test code = 7085926583) 1.0 mg/dL 0.1-1.1 CALCIUM (test code = 2955348914) 9.3 mg/dL 8.6-10.6 T PROTEIN (test code = 4542847258) 6.8 g/dL 6.3-8.2 ALBUMIN (test code = 4145832408) 4.1 g/dL 3.5-5.0 ALK PHOS (test code = 2212531227) 85 U/L 34-122 ALTv (test code = 1742-6) 14 U/L 5-35 AST(SGOT) (test code = 7468399385) 19 U/L 13-40 eGFR (test code = 21793-0) 87.7 mL/min/1.73m2 CKD-EPI eGFR (20 21). Assuming creatinine has been stable day-to-day for at least three months, the eGFR indicates Category G2 (60 - 89 mL/min/1.73 m2) [facility] FriscoMagnesium2024-05-04 14:47:29* Test Item Value Reference Range Interpretation Comme nts MAGNESIUM (test code = 8137691089) 2.1 mg/dL 1.7-2.4 Lab Interpretation (test cod e = 77568-5) Normal [facility] with [id number] 13:49:52* Test Item Value Reference Range Interpretation Comme nts WBC (test code = 6690-2) 5.90 4.30-11.10 RBC (test code = 789-8) 4.55 3.93-5.25 HGB (test code = 718-7) 14.1 g/dL 11.6-15.0 HCT (test code = 4544-3) 42.5 % 35.7-45.2 MCV (test code = 787-2) 93.4 fL 80.6-95.5 MCH (test code = 785-6) 31.0 pg 25.9-32.8 MCHC (test code = 786-4) 33.2 g/dL 31.6-35.1 RDW-SD (test code = 60597-9) 43.2 fL 39.0-49.9 RDW-CV (test code = 788-0) 12.5 % 12.0-15.5 PLT (test code = 777-3) 260 166-358 MPV (test code = 48155-9) 11.2 fL 9.5-12.9 NRBC/100 WBC (test code = 6776568786) 0.0 0.0-10.0 NRBC x10^3 (test code = 0527720392) See_Comment [Automated me ssage] The system which generated this result transmitted reference range: 10*3/?L. The reference range was not used to interpret this result as normal/abnormal. GRAN MAT (NEUT) % (test code = 770-8) 66.2 % IMM GRAN % (test code = 2883314924) 0.30 % LYMPH % (test code = 736-9) 24.9 % MONO % (test code = 5905-5) 6.6 % EOS % (test code = 713-8) 1.5 % BASO % (test code = 706-2) 0.5 % GRAN MAT x10^3(ANC) (test code = 8655776615) 3.90 10*3/uL 1.88-7.09 IMM GRAN x10^3 (test code = 9368657849) 0.00-0.06 LYMPH x10^3 (test code = 731-0) 1.47 10*3/uL 1.32-3.29 MONO x10^3 (test code = 742-7) 0.39 10*3/uL 0.33-0.92 EOS x10^3 (test code = 711-2) 0.09 10*3/uL 0.03-0.39 BASO x10^3 (test code = 704-7) 0.03 10*3/uL 0.01-0.07 [facility] with [id number] 13:49:52* Test Item Value Reference Range Interpretation Comme nts WBC (test code = 6690-2) 5.90 4.30-11.10 RBC (test code = 789-8) 4.55 3.93-5.25 HGB (test code = 718-7) 14.1 g/dL 11.6-15.0 HCT (test code = 4544-3) 42.5 % 35.7-45.2 MCV (test code = 787-2) 93.4 fL 80.6-95.5 MCH (test code = 785-6) 31.0 pg 25.9-32.8 MCHC (test code = 786-4) 33.2 g/dL 31.6-35.1 RDW-SD (test code = 73498-1) 43.2 fL 39.0-49.9 RDW-CV (test code = 788-0) 12.5 % 12.0-15.5 PLT (test code = 777-3) 260 166-358 MPV (test code = 99359-8) 11.2 fL 9.5-12.9 NRBC/100 WBC (test code = 1597227957) 0.0 0.0-10.0 NRBC x10^3 (test code = 4006625700) See_Comment [Automated me ssage] The system which generated this result transmitted reference range: 10*3/?L. The reference range was not used to interpret this result as normal/abnormal. GRAN MAT (NEUT) % (test code = 770-8) 66.2 % IMM GRAN % (test code = 6464429611) 0.30 % LYMPH % (test code = 736-9) 24.9 % MONO % (test code = 5905-5) 6.6 % EOS % (test code = 713-8) 1.5 % BASO % (test code = 706-2) 0.5 % GRAN MAT x10^3(ANC) (test code = 5455106225) 3.90 10*3/uL 1.88-7.09 IMM GRAN x10^3 (test code = 2675386538) 0.00-0.06 LYMPH x10^3 (test code = 731-0) 1.47 10*3/uL 1.32-3.29 MONO x10^3 (test code = 742-7) 0.39 10*3/uL 0.33-0.92 EOS x10^3 (test code = 711-2) 0.09 10*3/uL 0.03-0.39 BASO x10^3 (test code = 704-7) 0.03 10*3/uL 0.01-0.07 [facility] [id number] 20:26:00* Test Item Value Reference Range Interpretation Comme nts POCT PREG (test code = 1605) Negative On board controls acceptable with C Line (test code = 3574) Yes POCT PREG LOT # (test code = 3575) POCT PREG TEST DATE ( test code = 3576) [facility] [id number] 20:26:00* Test Item Value Reference Range Interpretation Comme nts POCT PREG (test code = 1605) Negative On board controls acceptable with C Line (test code = 3574) Yes POCT PREG LOT # (test code = 3575) POCT PREG TEST DATE ( test code = 3576) [facility]iscoTROPONIN [id number] 04:23:35* Test Item Value Reference Range Interpretation Comme nts TROPONIN I (test code = 5824550364) 0.000 ng/mL <=0.034 HEAVEN (test code = HEAVEN) Reference (Normal) Range (defined by the 99th percentile reference limit): <= 0.034 ng/mL Note: Cardiac troponin begins to rise 3-4 hours after the onset of ischemia. Repeat in 4-6 hours if the sample was drawn within 3-4 hours of the onset of the symptom and found normal. Diagnosis of myocardial injury is made with acute changes in cTn concentrations with at least one serial sample above the 99th percentile upper reference limit (URL), taken together with the patient's clinical presentation. Biotin has been reported to cause a negative bias, interpret results relative to patient's use of biotin. Lab Interpretation (test code = 79183-6) Normal [facility] [id number] 00:52:00* Test Item Value Reference Range Interpretation Comme nts POCT PREG (test code = 1605) Negative On board controls acceptable with C Line (test code = 3574) Yes POCT PREG LOT # (test code = 3575) [id number] POCT PREG TEST DATE ( test code = 3576) 03/29/24 Lab Interpretation (test cod e = 75989-1) Normal [facility]iscoTHYROXINE (T4) FREE, DIRECT, [id number] 12:10:00* Test Item Value Reference Range Interpretation Comme nts T4,Free(Direct)-LC (test code = 3024-7) 1.16 ng/dL 0.82-1.77 HEAVEN (test code = HEAVEN) PERFORMED BY [address] [id number] ; [id number]; ; MD Celio Witt ? [facility] FriscoTSH-[id number] 12:10:00* Test Item Value Reference Range Interpretation Comme nts TSH-LC (test code = 41785-8) See_Comment [Automated messa ge] The system which generated this result transmitted reference range: 0.450 - 4.500 uIU/mL. The reference range was not used to interpret this result as normal/abnormal. HEAVEN (test code = HEAVEN) PERFORMED BY [address] ?[facility] [id number] ; [id number]; ; MD Celio Witt ? [facility] FriscoTRIIODOTHYRONINE (T3)-[id number] 12:10:00* Test Item Value Reference Range Interpretation Comme nts Triiodothyronine (T3)-LC (test code = 3053-6) 115 ng/dL 71-180 HEAVEN (test code = HEAVEN) PERFORMED BY [address] ?[facility] [id number] ; [id number]; ; MD Celio Witt ? [facility] FriscoPOMD [id number] 20:57:00* Test Item Value Reference Range Interpretation Comme nts POCT PREG (test code = 1605) Negative On board controls acceptable with C Line (test code = 3574) Yes POCT PREG LOT # (test code = 3575) POCT PREG TEST DATE ( test code = 3576) [facility] [id number] 20:57:00* Test Item Value Reference Range Interpretation Comme nts POCT PREG (test code = 1605) Negative On board controls acceptable with C Line (test code = 3574) Yes POCT PREG LOT # (test code = 3575) POCT PREG TEST DATE ( test code = 3576) [facility] Notes Date/Time Note Provider Source 2024-05-31 16:36:34 Name and verified. Will call radiology. Called reading room. No answer. Dr. Perla advised. Will need to wait for finalized result. Pt advised and verbalized understanding. LISA MATOS RN 05/31/2024 4:37 PM Lisa Matos RN [facility] 2024-05-31 13:33:48 Pt requesting a call to go over her results. Tika Plunkett [facility] 2024-05-21 15:51:34 Every 6 months. I would recommend following up with her manager asset management, Dr. Queen. For jose luis's thyroiditis I recommend eating a whole foods diet, mostly plant based (75% of plate being vegetables, some lower glycemic fruit, and healthy fat-avocado, nuts, grassfed butter, omega 3 rich fatty fish/yue seeds/flax seeds) and 25% plate being quality protein (25-30 g per meal). Include foods rich in selenium (brazil nuts), zinc and magnesium. Consider dairy/gluten free diet. Avoid packaged processed foods/carbohydrates and sugar. Recommend stress management. If she would like a referral to meet with a counselor please let me know. [facility] 2024-05-15 13:47:52 Please review and advise. XIOMARA NOV not scheduled Deann Gamboa LVN [facility] 2024-04-24 07:34:13 Last Refilled: Disp Refills Start End GARRY busPIRone 5 mg tablet 60 tablet 1 03/01/2024 -- No Sig: Take 1 tablet by mouth 2 (two) times daily as needed (anxiety). Sent to pharmacy as: busPIRone 5 mg tablet (BUSPAR) Class: eRX Route: Oral Order: [id number] Date/Time Signed: 03/01/2024 14:32 E-Prescribing Status: Receipt confirmed by pharmacy (03/01/2024 2:32 PM CDT) Recent Visits Date Type Provider Dept 03/01/24 Office Visit Rekha Whittaker PA [facility] 03/01/24 Office Visit Rekha Whittaker PA [facility] 01/12/23 Office Visit Rekha Whittaker PA [facility] 12/15/22 Office Visit Rekha Whittaker PA [facility] Showing recent visits within past 540 days with a meds authorizing provider and meeting all other requirements Future Appointments No visits were found meeting these conditions. Showing future appointments within next 150 days with a meds authorizing provider and meeting all other requirements Abida Gunter [facility] 2024-04-16 13:33:45 Images from the original note were not included. Requested Renewals Name from pharmacy: Methocarbamol 500mg Tablet Will file in chart as: METHOCARBAMOL 500 mg tablet Sig: Take 1 tablet by mouth 2 (two) times daily as needed (back pain/spasm). Disp: 10 tablet (Pharmacy requested: 10 Each) Refills: 0 (Pharmacy requested: Not specified) Start: 04/16/2024 Class: eRX For: Chronic bilateral low back pain without sciatica Last ordered: 1 month ago (03/01/2024) by DAMI Luo Last refill: 03/01/2024 Rx #: [id number] Provider Review Required - Methocarbamol Qwyxdi4504/16/2024 01:32 PM Protocol Details This refill cannot be delegated Manual Review: Methocarbamol for ortho staff to refill only Valid encounter within last 12 months To be filled at: [facility] [place] [facility] [place], [place] - [address] [place] [address] AT [address] Recent Visits Date Type Provider Dept 03/01/24 Office Visit Rekha Whittaker PA [facility] 03/01/24 Office Visit Rekha Whittaker PA [facility] 01/12/23 Office Visit Rekha Whittaker PA [facility] 12/15/22 Office Visit Rekha Whittaker PA [facility] Showing recent visits within past 540 days with a meds authorizing provider and meeting all other requirements Future Appointments No visits were found meeting these conditions. Showing future appointments within next 150 days with a meds authorizing provider and meeting all other requirements Marika Borjas LVN [facility] 2024-03-28 18:20:00 Addended by: TOMAS CHONG on: 03/28/2024 07:15 PM Modules accepted: Orders [facility] 2024-03-02 08:00:00 Images from the original note were not included. Venipuncture collection performed by clean technique on the right anticubitus. Total of 1 attempts were made. Slight pressure and a bandage/dressing were applied to the site(s). The patient experienced no complications. The following specimens were processed according to instructions and sent to [facility] laboratories per lab order on 03/02/2024 : LT BLUE SST 5 RED LAV 2 PPT DK GREEN (LiHep) DK GREEN (SodH) 1lt gr ALVA DK BLUE (K2) DK BLUE (S) ACD Blood Culture NIPT/NTD [facility] 2024-03-01 15:00:00 Pt was suppose to leave sample with nurse, not come to lab. Briana Kan [facility] 2024-02-26 13:19:33 Refill denied: Needs appt Requested Prescriptions Pending Prescriptions Disp Refills BUSPIRONE 5 mg tablet [Pharmacy Med Name: Buspirone 5mg Tablet] 60 tablet 6 Sig: TAKE ONE (1) TABLET BY MOUTH 2 (TWO) TIMES DAILY NEEDED (ANXIETY). Last fill date: 01/12/23 Deann Gamboa LVN [facility]
--- NOTE | 2024-06-05 08:48 | RAD REPORT ---
EXAM DESCRIPTION: CT - Stone Protocol - 06/05/2024 8:37 am CLINICAL HISTORY: Flank pain. back pain COMPARISON: CT ABD PELVIS W CONTRAST dated 01/31/2012 TECHNIQUE: Axial images were obtained without oral or IV contrast. Lack of contrast limits solid org an and vascular assessment. The [id number] spans the entirety of the system partially obscuring uppermost abdomen and lung bases. Coronal reformatted images were obtained and reviewed. All CT scans are performed using dose optimization technique as appropriate and may include automated exposure control or mA/KV adjustment according to patient size. FINDINGS: The lower lung cardona are clear. Imaged portions of the liver and spleen show no suspicious findings on non-contrast imaging. The panc reas and adrenal glands are normal. No pathologic lymphadenopathy in the abdomen or pelvis. Small fat containing umbilical hernia. No urinary tract stones or obstructive uropathy. No bowel obstruction, free air, free fluid or abscess. Normal appendix noted.IUD is present in the ut erus. No significant bony abnormality. IMPRESSION: No urinary tract stones or obstructive uropathy.
[2024-06-05 08:54] LABS: Absolute Eosinophils 0.1 K/uL (0-0.5); Absolute Lymphocytes (CBC) 1.3 K/uL (0.7-4.9); Absolute Monocytes 0.4 K/uL (0.1-1.3); Absolute Neutrophil 3.8 K/uL (1.8-8.0); Basophils % 0.6 % (0-1.3); Eosinophils % 1.6 % (0-4.4); Hematocrit 43.4 % (36.0-45.0); Hemoglobin 14.4 g/dL (12.0-15.0); Lymphocytes % 23.6 % (15.3-44.8); MCH 30.5 pg (27.0-35.0); MCHC 33.1 g/dL (32.0-36.0); MCV 92.2 fL (80-100); MPV 9.5 fL (7.6-11.3); Monocytes % 7.3 % (3.3-12.3); Neutrophils % 66.9 % (41.7-73.7); Platelets 258 thou/uL (152-406); Red Cell Distribution Width 13.4 % (12.1-15.2)
[2024-06-05 08:54] LABS: Specific Gravity 1.028 (1.005-1.030); Sqamous Epithelial <5 /HPF (None Seen); Urine Bacteria <20 /HPF (<20); Urine Bilirubin NEGATIVE (Negative); Urine Blood 2+ (Negative); Urine Clarity Extremely Turbid (Clear); Urine Color Yellow (Yellow); Urine Culture Reflex Order NOT NEEDED; Urine Glucose NEGATIVE (Negative); Urine Ketones NEGATIVE (Negative); Urine Microscopic Reflex YN ORDER UMIC; Urine Mucus 3+ /HPF (None Seen); Urine Nitrite NEGATIVE (Negative); Urine Protein TRACE (Negative); Urine Urobilinogen Normal (Normal); Urine WBC <5 /HPF (<5)
[2024-06-05] MEDS ORDERED: ONDANSETRON 4 MG/2 ML VIAL ONE (09:42)
[2024-06-05] MEDS ORDERED: dexAMETHasone 10 MG/ML VIAL ONE (09:42)
[2024-06-05] MEDS ORDERED: MORPHINE 4 MG/ML SYR ONE (09:43)
--- NOTE | 2024-06-05 10:58 | ER ---
Nurse's Notes [facility] Name: Giuliana Gonzalez Age: 39 yrs Sex: Female : 1985 Arrival Date: 06/05/2024 Time: 08:09 Bed 11 Private MD: Diagnosis: Low back pain Presentation: 06/05 08:22 Chief complaint: Patient states: she is having low back pain that started last night at ap3 approx 7pm. patient states she tried to relieve pain with heating pad, patient reports having this pain in the past and has had it intermittently for the last month. patient currently rates her pain as an 8/10 on the pain scale. Coronavirus screen: At this time, the client does not indicate any symptoms associated with coronavirus-19. Ebola Screen: No symptoms or risks identified at this time. Initial Sepsis Screen: Does the patient meet any 2 criteria? HR > 90 bpm. Does the patient have a suspected source of infection? No. Patient's initial sepsis screen is negative. Risk Assessment: Do you want to hurt yourself or someone else? Patient reports no desire to harm self or others. Onset of symptoms is unknown. 08:22 Method Of Arrival: Ambulatory ap3 08:22 Acuity: MARLENI 3 ap3 Triage Assessment: 08:25 General: Appears uncomfortable, Behavior is calm, cooperative, appropriate for age. ap3 Pain: Complains of pain in low back area Pain currently is 8 out of 10 on a pain scale. at worst was 9 out of 10 on a pain scale. Neuro: Level of Consciousness is awake, alert, obeys commands, Oriented to person, place, time, situation, Appropriate for age. Cardiovascular: Patient's skin is warm and dry. Respiratory: Airway is patent Respiratory effort is even, unlabored, Respiratory pattern is regular, symmetrical. 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 - Infectious Disease History:: Denies. - Social history:: Smoking status: Patient denies any tobacco usage or history of. - Family history:: not pertinent. - Hospitalizations: : No recent hospitalization is reported. Screenin:26 [facility] ED Fall Risk Assessment (Adult) History of falling in the last 3 months, ap3 including since admission No falls in past 3 months (0 pts) Confusion or Disorientation No (0 pts) Intoxicated or Sedated No (0 pts) Impaired Gait No (0 pts) Mobility Assist Device Used No (0 pt) Altered Elimination No (0 pt) Score/Fall Risk Level 0 - 2 = Low Risk Oriented to surroundings, Maintained a safe environment, Educated pt \T\ family on fall prevention, incl call for assistance when getting out of bed, Assessed \T\ reinforced patient's understanding of fall precautions, Hourly rounding (assess needs \T\ fall precautionary measures) done, Used ambulatory aids as needed (educated on \T\ assisted with), Used gait belt as appropriate. Abuse screen: Denies threats or abuse. Nutritional screening: No deficits noted. Tuberculosis screening: No symptoms or risk factors identified. Assessment: 10:00 Reassessment: Patient and/or family updated on plan of care and expected duration. Pain ap3 level reassessed. Patient is alert, oriented x 3, equal unlabored respirations, skin warm/dry/pink. General: Behavior is calm, cooperative, appropriate for age. Vital Signs: 08:22 BP 138 / 74; Pulse 94; Resp 17; Temp 98.5; Pulse Ox 100% ; Weight 82.1 kg; Height 5 ft. ap3 1 in. ; Pain 8/10; 11:16 BP 126 / 83; Pulse 62; Resp 17; Pulse Ox 99% on R/A; ap3 08:22 Body Mass Index 34.20 (82.10 kg, 154.94 cm) ap3 08:22 Pain Scale: Adult ap3 ED Course: 08:11 Patient arrived in ED. im 08:15 Artur Vyas MD is Attending Physician. rn 08:24 Triage completed. ap3 08:26 Arm band placed on right wrist. ap3 08:35 Urinalysis w/ reflexes Sent. em1 08:39 CT Stone Protocol In Process Unspecified. EDMS 08:49 Basic Metabolic Panel Sent. em1 08:49 CBC with Diff Sent. em1 08:49 Initial lab(s) drawn, by me, sent to lab. Inserted saline lock: 20 gauge in right em1 antecubital area, using aseptic technique. Blood collected. Flushed with 10 mL NS. 10:00 Estela Glover, RN is Primary Nurse. ap3 11:17 Patient has correct armband on for positive identification. Provided Education on: ap3 discharge instructions. 11:17 No provider procedures requiring assistance completed. IV discontinued, intact, ap3 bleeding controlled, No redness/swelling at site. Pressure dressing applied. Administered Medications: 10:00 Drug: morphine IVP or IV 4 mg IVP once over 4 mins Route: IVP; Infused Over: 4 mins; ap3 Site: right antecubital; 11:16 Follow up: Response: No adverse reaction; Pain is decreased ap3 10:00 Drug: Ondansetron IVP 4 mg IVP once; over 2 minutes Route: IVP; Site: right antecubital;ap3 11:16 Follow up: Response: No adverse reaction ap3 10:00 Drug: Decadron - Dexamethasone IVP 10 mg IVP once Route: IVP; Site: right antecubital; ap3 11:16 Follow up: Response: No adverse reaction ap3 Medication: 11:17 VIS not applicable for this client. ap3 Outcome: 10:58 Discharge ordered by . rn 11:17 Discharged to home ambulatory, ap3 11:17 Condition: good 11:17 Discharge instructions given to patient, Instructed on discharge instructions, follow up and referral plans. medication usage, Demonstrated understanding of instructions, follow-up care, medications, Prescriptions given X 3, 11:17 Patient left the ED. ap3 Signatures: Dispatcher [employer] EDMS Artur Vyas MD MD rn Martinez, Eric em1 Estela Glover RN RN ap3 Staci Miller
--- NOTE | 2024-06-05 10:59 | EDPHYS ---
Physician Documentation [facility] Name: Giuliana Gonzalez Age: 39 yrs Sex: Female : 1985 Arrival Date: 06/05/2024 Time: 08:09 Bed 11 Private MD: ED Physician Artur Vyas HPI: 06/05 10:01 This 39 yrs old Female presents to ER via Ambulatory with complaints of Low Back Pain. rn 10:01 The patient presents with pain that is acute. The symptoms are located in the low back. rn The pain does not radiate. 10:01 Onset: The symptoms/episode began/occurred last night. Modifying factors: The patient rn symptoms are alleviated by nothing, the patient symptoms are aggravated by any movement. Severity of symptoms: At their worst the symptoms were moderate, in the emergency department the symptoms are unchanged. The patient has experienced similar episodes in the past. The patient has not recently seen a physician. Patient reports left lower back pain that began last night. Has had this multiple times before just worse today. Sees chiropractor. Has had x-rays but never other imaging. Denies hematuria or urinary symptoms. No fever or chills. No trauma. Tried to go to work today and had difficulty getting out of the car due to pain. No bowel or bladder issues.. 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 - Infectious Disease History:: Denies. - Social history:: Smoking status: Patient denies any tobacco usage or history of. - Family history:: not pertinent. - Hospitalizations: : No recent hospitalization is reported. ROS: 10:01 Constitutional: Negative for fever, chills, and weight loss, Neck: Negative for injury, rn pain, and swelling, Cardiovascular: Negative for chest pain, palpitations, and edema, Respiratory: Negative for shortness of breath, cough, wheezing, and pleuritic chest pain, Abdomen/GI: Negative for abdominal pain, nausea, vomiting, diarrhea, and constipation, Back: Positive for left lower back pain : Negative for injury, bleeding, discharge, and swelling, MS/Extremity: Negative for injury and deformity, Skin: Negative for injury, rash, and discoloration, Neuro: Negative for headache, weakness, numbness, tingling, and seizure, Exam: 10:01 Constitutional: This is a well developed, well nourished patient who is awake, alert, 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 Cardiovascular: Regular rate and rhythm. No pulse deficits. Abdomen/GI: Soft, non-tender Back: No spinal tenderness. No costovertebral tenderness. MS/ Extremity: Pulses equal, no cyanosis. Neurovascular intact. Full, normal range of motion. Equal circumference. Neuro: Awake and alert, GCS 15. Motor strength 5/5 in all extremities. Sensory grossly intact. Vital Signs: 08:22 BP 138 / 74; Pulse 94; Resp 17; Temp 98.5; Pulse Ox 100% ; Weight 82.1 kg; Height 5 ft. ap3 1 in. ; Pain 8/10; 11:16 BP 126 / 83; Pulse 62; Resp 17; Pulse Ox 99% on R/A; ap3 08:22 Body Mass Index 34.20 (82.10 kg, 154.94 cm) ap3 08:22 Pain Scale: Adult ap3 MDM: 08:15 Patient medically screened. rn 10:56 Differential diagnosis: arthritis, strain, sciatica, Herniated disc UTI. rn 10:57 Data reviewed: vital signs, nurses notes, lab test result(s), radiologic studies, CT rn scan, and as a result, I will discharge patient. Counseling: I had a detailed discussion with the patient and/or guardian regarding the historical points, exam findings, and any diagnostic results supporting the discharge/admit diagnosis, lab results, radiology results, the need for outpatient follow up, to return to the emergency department if symptoms worsen or persist or if there are any questions or concerns that arise at home. Special discussion: I discussed with the patient/guardian in detail that at this point there is no indication for admission to the hospital. It is understood, however, that if the symptoms persist or worsen the patient needs to return immediately for re-evaluation. Further emergent ED testing is not indicated at this point in time. I discussed with the patient/guardian in detail the need to arrange with the PCP or specialist further outpatient testing, MRI, Based on the history and exam findings, there is no indication for further emergent testing or inpatient evaluation. I discussed with the patient/guardian the need to see the back specialist for further evaluation of the symptoms. 06/05 08:21 Order name: Urinalysis w/ reflexes; Complete Time: : rn 06/05 08:21 Order name: CBC with Diff; Complete Time: rn 06/05 08:21 Order name: Basic Metabolic Panel; Complete Time: rn 06/05 08:21 Order name: CT Stone Protocol; Complete Time: rn 06/05 08:21 Order name: IV Start; Complete Time: 08:49 rn Administered Medications: 10:00 Drug: morphine IVP or IV 4 mg IVP once over 4 mins Route: IVP; Infused Over: 4 mins; ap3 Site: right antecubital; 11:16 Follow up: Response: No adverse reaction; Pain is decreased ap3 10:00 Drug: Ondansetron IVP 4 mg IVP once; over 2 minutes Route: IVP; Site: right antecubital;ap3 11:16 Follow up: Response: No adverse reaction ap3 10:00 Drug: Decadron - Dexamethasone IVP 10 mg IVP once Route: IVP; Site: right antecubital; ap3 11:16 Follow up: Response: No adverse reaction ap3 Disposition Summary: 06/05/24 10:58 Discharge Ordered Notes: Location: Home rn Problem: new rn Symptoms: have improved rn Condition: Stable rn Diagnosis - Low back pain rn Followup: rn - With: Private Physician - When: As needed - Reason: Recheck today's complaints, Re-evaluation by your physician Discharge Instructions: - Discharge Summary Sheet rn - Acute Back Pain, Adult rn - Musculoskeletal Pain rn Forms: - Medication Reconciliation Form rn - 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 - Prescription Opioid Use rn - Patient Portal Instructions rn - Leadership Thank You Letter rn - Work release form ap3 Prescriptions: - Cyclobenzaprine 10 mg Oral tablet - take 1 tablet ORAL route every 8 hours As needed; 12 tablet; Refills: 0, rn Product Selection Permitted - Tramadol 50 mg Oral Tablet - take 1 tablet ORAL route every 8 hours as needed; 12 tablet; Refills: 0, rn Product Selection Permitted - Medrol (Andrew) 4 mg Oral Tablets, Dose Pack - take 1 tablet ORAL route as directed - follow package instructions; 1 packet; rn Refills: 0, Product Selection Permitted Signatures: Dispatcher [employer] Artur Salomon MD MD rn Prokisch, Amanda, RN RN ap3 Corrections: (The following items were deleted from the chart) 08: 08:22 Stone Protocol+CT.RAD.BRZ ordered. EDMS EDMS 08:22 Urinalysis+U.LAB.BRZ ordered. EDMS EDMS : 08:22 CBC+H.LAB.BRZ ordered. EDMS EDMS 08: 08:22 BASIC METABOLIC PANEL+C.LAB.BRZ ordered. EDMS EDMS
[2024-06-05 13:55] VITALS: TEMP 98.5
[2024-06-05 13:56] VITALS: BP 126/83; O2SAT 99
== END 2024-06-05 11:17 | disposition home or self-care (01) ==
LOC: ER 08:09
DX: M54.50 Low back pain, unspecified (principal)
CPT/HCPCS: 85025; 81001; 80048; 36415; 76377; 74176; J1100; J2405

== ENCOUNTER 2025-07-24 20:00 | Emergency (ER) | payer BC ==
--- OUTSIDE RECORDS SUMMARY | 2025-07-24 20:09 | XMS REPORT | Continuity of Care Document ---
Author Name Unknown Address [address] [facility] [place] [address] [facility] [place] Address [address] [facility] [address] [place] [address] Care Team Providers Care Automation/Controls Manager Name Role Phone REKHA BEDOYA Primary Care Physician Unavaila ble No, PCP Attending Clinician Unavailable SIMONA VIDAL Attending Clinician Unavailable ASPEN PERLA Attending Clinician Unavailable ASPEN PERLA Attending Clinician Unavailable TABATHA LIMON Attending Clinician UnaALON Tanner Attending Clinician UnavailAspen Boyce MD Attending Clinician [phone] Tabatha Limon MD Attending Clinician + [phone] MAGNUS PINTO Attending Clinician Unavailable MAGNUS PINTO Attending Clinician Unavailable Rekha Loredo Attending Clinician [phone] Yessy Kapadia Attending Clinician [phone] Doctor Unassigned, [place] Attending Clinician LIV Schmid Attending Clinician Unavailable Lab, Ang - Db Attending Clinician Unavailable REKHA BEDOYA Attending Clinician Unavailable Cross MD, Kalli Attending Clinician KALLI CROSS Attending Clinician Unavailable KALEIGH WEEKS Attending Clinician Unavailable KALEIGH WEEKS Attending Clinician Unavailable FELIPA MEDINA Attending Clinician Unavailable KIA DOS SANTOS Attending Clinician Unavailab ed Dos Santos DNP, Kia Attending Clinician [phone] Lab, [facility] Attending Clinician Unavailable Rekha Loredo Attending Clinician [phone] Aleja Cunha PA-C Attending Clinician [phone] FLOWER MILLER Attending Clinician Unavailable Doctor Unassigned, [place] Attending Clinician U ALEJA Venegas Attending Clinician Unavailable Unknown, Attending Attending Clinician Unavailab ed Dos Santos DNP, Kia Attending Clinician [phone] [facility] Lab Main Attending Clinician Unavailradha francisco Lab, Ang - Db Attending Clinician Unavailable Rose Metzger MD Attending Clinician + [phone] ROSE METZGER Attending Clinician UnavailROSE Gamble Attending Clinician Unavailmolina Gordon MD, Liv Attending Clinician [phone] EDDIE GRIFFITH Attending Clinician Unavailable JASPER FERRELL Attending Clinician UnavailBARTOLO Lima Attending Clinician UnavailBartolo Page Attending Clinician [phone] Nurse, [facility] Attending Clinician Un available ERNESTO TOLBERT III Attending Clinician UnavailErnesto Nava MD Attending Clinician [phone] Sima Gordon MD Attending Clinician UnavailTiffany Rios MD Attending Clinician [phone] Marika Borjas LVN Attending Clinician [facility] Attending Clinician UnavailTIFFANY Veliz Attending Clinician UnavailSimona Gonzalez MD Attending Clinician [phone] DALE PADRON Attending Clinician Unavailable SIMONA VIDAL Admitting Clinician Unavailable MAGNUS PINTO Admitting Clinician Unavailable KALLI CROSS Admitting Clinician Unavailable ASPEN PERLA Admitting Clinician Unavailable ASPEN PERLA Admitting Clinician Unavailable BARTOLO MAYFIELD Admitting Clinician UnavailLIV Buitrago Admitting Clinician Unavailable Payers Payer Name Policy Type Policy Number Effective Date Expirati on Date Source [facility] [id number] 2018 00:00:00 Problems Condition Name Condition Details Condition Category Status Onset Date Resolution Date Last Treatment Date Treating Clinician Comments Source Perimenopa usal vasomotor symptoms Perimenopa usal vasomotor symptoms Disease Active 0 9-19 00:00: 00 [facility] Precordial pain Precordial pain Disease Active 0 3-11 00:00: 00 [facility] Abnormal EKG Abnormal EKG Disease Active 0 3-11 00:00: 00 [facility] Presence of intrauteri ne contracept segun device Presence of intrauteri ne contracept segun device Disease Active 0 7-06 00:00: 00 [facility] Menorrhagi a with regular cycle Menorrhagi a with regular cycle Disease Active 0 7-28 00:00: 00 [facility] Obesity, Class I, BMI 30-34.9 Obesity, Class I, BMI 30-34.9 Disease Active 0 5-31 00:00: 00 [facility] Obstructiv e sleep apnea syndrome Obstructiv e sleep apnea syndrome Disease Active 0 4-28 00:00: 00 [facility] COVID-19 vaccine series declined COVID-19 vaccine series declined Disease Active 0 2-11 00:00: 00 [facility] Thyroiditi s, autoimmune Thyroiditi s, autoimmune Disease Active 0 8-08 00:00: 00 [facility] Prediabete s Prediabete s Disease Active 7-16 00:00: 00 [facility] Iron deficiency anemia due to chronic blood loss Iron deficiency anemia due to chronic blood loss Disease Active 7-16 00:00: 00 [facility] Anxiety and depression Anxiety and depression Disease Active 2018-10 1-22 00:00: 00 [facility] Tinnitus of right ear Tinnitus of right ear Disease Active 2018-10 00:00: 00 [facility] Vertigo Vertigo Disease Active 11-30 00:00: 00 [facility] Allergic rhinitis Allergic rhinitis Disease Active [facility] Migraines Migraines Disease Active [facility] Low HDL (under 40) Low HDL (under 40) Disease Active [facility] Rectal bleeding Rectal bleeding Disease Resolve d 2019-10 00:00: 00 2024-02-23 00:00:00 2024-02-23 10:32:15 Overview: Formattin g of this note might be different from the original. Added automatic ally from request for surgery [id number] [facility] Right ear pain Right ear pain Disease Resolve d 2018-10 00:00: 00 2020-06-19 00:00:00 2020-06-19 14:47:38 [facility] Forgetfuln ess Forgetfuln ess Disease Resolve d 2018-10 00:00: 00 2019-11-08 00:00:00 2019-11-08 10:22:22 [facility] Allergies, Adverse Reactions, Alerts Allergy Name Allergy Type Status Severity Reaction(s) Onset Date Inactive Date Treating Clinician Comments Source CIPROFLO XACIN DRUG INGREDI Active Unknown-Cmnt 02-22 00:00: 00 [facility] Ciproflo xacin Propensi ty to adverse reaction s Active Unknown - See comments 02-22 00:00: 00 [facility] LIRAGLUT AILIN (WEIGHT LOSS) DRUG Active N/V 12-15 00:00: 00 [facility] Liraglut ailin (Weight Loss) Propensi ty to adverse reaction s Active Unknown - See comments 12-15 00:00: 00 Body aches, cramps [facility] Amoxicil simba Propensi ty to adverse reaction s Active Hives 2018-10 00:00: 00 [facility] AMOXICIL SIMBA DRUG INGREDI Active Hives 2018-10 00:00: 00 [facility] Penicill ins Propensi ty to adverse reaction s Active Anaphylaxis 04-26 00:00: 00 ALL CILLINS [facility] Penicill ins Propensi ty to adverse reaction s Active Anaphylaxis 04-26 00:00: 00 ALL CILLINS [facility] Clindamy nick Propensi ty to adverse reaction s Active Anaphylaxis 0 04-26 00:00: 00 [facility] Penicill ins Propensi ty to adverse reaction s Active Anaphylaxis 0 04-26 00:00: 00 ALL CI[place]INS [facility] CLINDAMY NICK DRUG INGREDI Active Anaphylaxis 0 04-26 00:00: 00 [facility] CEPHALEX IN DRUG INGREDI Active Anaphylaxis 04-26 00:00: 00 [facility] PENICILL INS Drug Class Active Anaphylaxis 04-26 00:00: 00 [facility] Cephalex in Propensi ty to adverse reaction s Active Anaphylaxis 04-26 00:00: 00 [facility] Social History Social Habit Start Date Stop Date Quantity Comments Source History of tobacco use Cigarette Smoker [facility] Gender identity [facility] SDOH Alcohol Std Drinks [facility] History SDOH Alcohol Comment [place] [facility] ASSERTION Not [facility] Alcoholic beverage intake 2025-07-18 00:00:00 2025-07-18 00:00:00 Ex-drinker (finding) [facility] History of Social function 2025-01-07 00:00:00 2025-01-07 00:00:00 [facility] Tobacco use and exposure 2024-03-12 00:00:00 2024-03-12 00:00:00 Smokeless tobacco non-user [facility] Alcohol intake 2024-03-01 00:00:00 2024-03-01 00:00:00 Ex-drinker (finding) [facility] Cigarettes smoked current (pack per day) - Reported 2023-05-04 00:00:00 2023-05-04 00:00:00 [facility] Exposure to SARS-CoV-2 (event) 2023-04-16 00:00:00 2023-04-26 08:31:00 Not sure [facility] Tobacco Comment 2022-12-15 00:00:00 2022-12-15 00:00:00 Occasional. Not daily. [facility] History SDOH Alcohol Frequency 2019-04-26 00:00:00 2019-04-26 00:00:00 2 [facility] History SDOH Alcohol Binge 2019-04-26 00:00:00 2019-04-26 00:00:00 2 [facility] Sex assigned at 1985 00:00:00 1985 00:00:00 [facility] Smoking Status Start Date Stop Date Source Ex-smoker 2024-03-12 00:00:00 2024-03-12 [facility]00[facility] daily 2019-04-26 00:00:00 [facility] Medications Ordered Medication Name Filled Medication Name Start Date Stop Date Current Medication? Ordering Clinician Indication Dosage Frequency Signature (SIG) Comments Components Source triamcinolo ne acetonide 0.1 % ointment 07-20 00:00: 00 07-26 04:59 :00 Yes [id number] Apply to areas(s) 2 times daily for 5 days. [facility] predniSONE 10 mg tablet 07-20 00:00: 00 07-26 04:59 :00 Yes [id number] 10mg Take 1 tablet by mouth in the morning and 1 tablet in the evening. Do all this for 5 days. [facility] estradioL 0.1 mg/24 hr twice weekly patch 07-18 00:00: 00 Yes [id number] 1{patch } Apply 1 patch to skin 2 times a week on Monday and Monday. [facility] triamcinolo ne acetonide (KENALOG) injection 40 mg 06-19 20:15: 00 06-19 20:55 :00 No [id number] 40mg 40 mg, Infiltrati on, ONCE, 1 dose, On Mon06/19/25 at 1515, Routine [facility] lidocaine 1% (PF) (XYLOCAINE) injection 5 mL 06-19 20:15: 00 06-19 20:55 :00 No [id number] 5mL 5 mL, Infiltrati on, ONCE, 1 dose, On Mon06/19/25 at 1515, Routine [facility] BUPivacaine HCl (SENSORCAIN E) 0.25 % (2.5 mg/mL) injection 4 mL 06-19 20:15: 00 06-19 20:55 :00 No [id number] 4mL 4 mL, Infiltrati on, ONCE, 1 dose, On Mon06/19/25 at 1515, Routine [facility] aspirin chewable tablet 324 mg 06-02 15:45: 00 06-02 16:01 :00 No 324mg 324 mg, Oral, ONCE, 1 dose, On Mon06/02/25 at 1045, STAT [facility] SERTRALINE 25 mg tablet 05-29 00:00: 00 Yes [id number] TAKE ONE (1) TABLET(S) BY MOUTH IN THE MORNING. [facility] estradioL 0.1 mg/24 hr twice weekly patch 05-23 00:00: 00 07-18 00:00 :00 No [id number] 1{patch } Apply 1 Patch to skin 2 times a week on Monday and Monday. [facility] famotidine (PEPCID) 20 mg tablet 03-19 00:00: 00 Yes [id number] 20mg Take 1 tablet by mouth in the morning and 1 tablet in the evening. [facility] busPIRone 5 mg tablet 03-19 00:00: 00 Yes [id number] 5mg Take 1 tablet by mouth 2 times daily as needed (anxiety). [facility] SERTraline (ZOLOFT) 25 mg tablet 03-19 00:00: 00 05-29 00:00 :00 No [id number] 25mg Take 1 tablet by mouth in the morning. [facility] bupivacaine (preserv free) (SENSORCAIN E MPF) 0.25 % (2.5 mg/mL) injection 16 mL 03-14 21:00: 00 03-14 18:42 :00 No [id number] 40mg 16 mL (40 mg), Infiltrati on, ONCE, 1 dose, On Mon03/14/25 at 1600, Routine [facility] lidocaine 1% (PF) (XYLOCAINE) injection 5 mL 03-14 21:00: 00 03-14 18:42 :00 No [id number] 5mL 5 mL, Intramuscu lar, ONCE, 1 dose, On Mon03/14/25 at 1600, Routine [facility] triamcinolo ne acetonide (KENALOG) injection 40 mg 03-14 05:00: 00 03-14 18:44 :00 No [id number] 40mg 40 mg, Intramuscu lar, ONCE, 1 dose, On Mon03/14/25 at 0000, Routine [facility] cyclobenzap rine 10 mg tablet 03-14 00:00: 00 03-19 00:00 :00 No [id number] 10mg Take 1 tablet by mouth 3 (three) times daily as needed for Muscle Spasms. [facility] busPIRone 5 mg tablet 02-14 00:00: 00 03-19 00:00 :00 No [id number] TAKE ONE (1) TABLET(S) BY MOUTH TWICE A DAY NEEDED. [facility] NaCl 0.9% (NS) IV infusion 250 mL 01-29 17:15: 00 Yes [id number] 250mL at 50 mL/hr, IV Infusion, CONTINUOUS , Starting on Mon01/29/25 at 1215, Until Discontinu ed, Routine, To keep vein open [facility] perflutren protein-A microsphr (OPTISON) injection 3 mL 01-29 17:00: 00 01-29 15:15 :00 No [id number] 3mL 3 mL, IV Push, ONCE, 1 dose, On Mon01/29/25 at 1200, Routine [facility] DOBUTamine (DOBUTREX) 250 mg/250 mL RTU infusion 01-29 16:14: 03 Yes [id number] 5ug/kg/ min 5 mcg/kg/min , IV Infusion, TITRATE, MAP Goal > or = 65 mmHg, Titrate per admin instructio ns, Starting on Mon01/29/25 at 1114, Note and document the precise time that this is 3. accomplish ed. Begin the count with the EKG system's DSE applicatio n program. This is time zero. At 2 minutes and 30 seconds after beginning the initial dosing, acquire parasterna l long axis and parasterna l short axis view at papillary level, apical 4 chamber, 2 chamber and apical long axis view, and BP At the 3 minute interval, simultaneo usly obtain a 12 lead EKG, heart rate and 02 saturation and increase the Dobutamine infusion to 10 mcg/kg/min . At the 5 minutes and 30 second interval, acquire parasterna l long axis and parasterna l short axis view at papillary level, apical 4 chamber, 2 chamber and apical long axis view and measure BP. At the 6 minute interval, simultaneo usly obtain a 12 lead EKG, heart rate and 02saturati on and increase the Dobutamine infusion to 20 mcg/kg/min . At the 8 minutes and 30 second interval, acquire parasterna l long axis and parasterna l short axis view at papillary level, apical 4 chamber, 2 chamber and apical long axis view and measure BP. At the 9 minute interval, simultaneo usly obtain a 12 lead EKG, heart rate and 02 saturation and increase the Dobutamine infusion to 30 mcg/kg/min . (see Adjunctive Therapy) At the 11 minutes and 30 second interval, acquire parasterna l long axis and parasterna l short axis view at papillary level, apical 4 chamber, 2 chamber and apical long axis view and measure BP. At the 12 minute interval, simultaneo usly obtain a 12 lead EKG, heart rate and 02 saturation and increase the Dobutamine infusion to 40 mcg/kg/min . (see Adjunctive Therapy At the 14 minutes and 30 second interval, acquire parasterna l long axis and parasterna l short axis view at papillary level, apical 4 chamber, 2 chamber and apical long axis view and measure BP. At the 15 minute interval, simultaneo usly obtain a 12 lead EKG, heart rate and 02 saturation and terminate the Dobutamine infusion. (see Adjunctive Therapy) [facility] terbinafine HCL 250 mg tablet 3-11 10:42: 06 07-18 00:00 :00 No 250mg Take 1 tablet by mouth in the morning. [facility] BUSPIRONE 5 mg tablet 212 00:00: 00 Yes [id number] TAKE ONE (1) TABLET(S) BY MOUTH TWICE A DAY NEEDED. [facility] BUSPIRONE 5 mg tablet 2023-10 204 00:00: 00 12-11 00:00 :00 No [id number] TAKE ONE (1) TABLET(S) BY MOUTH TWICE A DAY NEEDED. [facility] meloxicam 7.5 mg tablet 2023-10 1-15 00:00: 00 Yes [id number] 9103 7.5mg Take 1 tablet by mouth 2 (two) times daily as needed for Pain (scale 4-6). [facility] BUSPIRONE 5 mg tablet 2023-10 008 00:00: 00 10-02 00:00 :00 No [id number] TAKE ONE (1) TABLET BY MOUTH TWO TIMES DAILY NEEDED. [facility] lidocaine 1% (PF) (XYLOCAINE) injection 5 mL 2023-10 18:15: 00 08-02 18:06 :00 No [id number] 5mL 5 mL, Infiltrati on, ONCE, 1 dose, On Mon08/02/24 at 1315, Routine [facility] bupivacaine (preserv free) (SENSORCAIN E MPF) 0.25 % (2.5 mg/mL) injection 2 mL 2023-10 004 18:15: 08-02 18:06 :00 No [id number] 2mL 2 mL, Infiltrati on, ONCE, 1 dose, On Mon08/02/24 at 1315, Routine [facility] triamcinolo ne acetonide (KENALOG) injection 80 mg 2023-10 004 18:15: 00 08-02 18:07 :00 No [id number] 80mg 80 mg, Infiltrati on, ONCE, 1 dose, On Mon08/02/24 at 1315, Routine [facility] sodium bicarbonate 1 mEq/mL (8.4 %) injection 1 mL 2023-10 0 18:15: 00 08-02 18:06 :00 No [id number] 1mL 1 mL, Infiltrati on, ONCE, 1 dose, On Mon08/02/24 at 1315, Routine [facility] iohexoL (OMNIPAQUE 300-50 mL)) injection 3 mL 2023-10 0 18:15: 00 08-02 18:06 :00 No [id number] 3mL 3 mL, Injection, ONCE, 1 dose, On Mon08/02/24 at 1315, Routine [facility] cyclobenzap rine 10 mg tablet 9-19 00:00: 00 03-14 00:00 :00 No [id number] 10mg Take 1 tablet by mouth 3 (three) times daily as needed for Muscle Spasms. [facility] ibuprofen 800 mg tablet 06-18 00:00: 00 03-19 00:00 :00 No [id number] 800mg Take 1 tablet by mouth every 8 (eight) hours as needed for Pain (scale 1-3) or Pain (scale 4-6). [facility] gad[facility] (PROHANCE-2 0 mL) injection 16.6 mL 06-12 22:45: 00 06-12 22:33 :00 No [id number] .2mL/kg 16.6 mL (0.2 mL/kg ?83 kg), Intravenou s, ONCE, 1 dose, On Mon06/12/24 at 1745, Routine [facility] BUSPIRONE 5 mg tablet 04-24 00:00: 00 08-06 00:00 :00 No [id number] TAKE ONE (1) TABLET BY MOUTH 2 (TWO) TIMES DAILY NEEDED. [facility] cetirizine 10 mg tablet 5-30 00:00: 00 Yes [id number] 10mg Take 1 tablet by mouth in the morning. [facility] bromphenira mine-pseudo ephedrine-D M (BROMFED DM) 2-30-10 mg/5 mL syrup 03-28 00:00: 00 Yes [id number] 5mL Take 5 mL by mouth 3 (three) times daily as needed for Cold symptoms or Cough. [facility] fluticasone propionate 50 mcg/actuati on nasal spray 03-28 00:00: 00 Yes [id number] 2{spray } Use 2 Sprays in each nostril in the morning. [facility] ibuprofen 800 mg tablet 03-28 00:00: 00 03-19 00:00 :00 No [id number] 800mg Take 1 tablet by mouth in the morning and 1 tablet at noon and 1 tablet in the evening. Take with meals. [facility] fexofenadin e HCl (ARIANA ORAL) 03-12 16:07: 19 Yes Take by mouth. [facility] propranoloL 20 mg tablet 03-12 00:00: 00 Yes [id number] 20mg Take 1 tablet by mouth in the morning. [facility] sumatriptan 100 mg tablet 03-12 00:00: 00 Yes [id number] 100mg Take 1 tablet by mouth as needed for Migraine (Max of 2 tablets/da y.). [facility] meclizine 12.5 mg tablet 03-12 00:00: 00 03-19 00:00 :00 No [id number] 12.5mg Take 1 tablet by mouth 3 (three) times daily as needed for Dizziness. [facility] INTRAUTERIN E DEVICE, IUD, INTRAUTERIN E 03-01 15:03: 47 Yes by Intrauteri ne route. [facility] fexofenadin e HCl (ARIANA ORAL) 03-01 15:03: 47 Yes Take by mouth. [facility] methocarbam oL 500 mg tablet 2024-0 5-03 00:00: 00 07-18 00:00 :00 No [id number] 500mg Take 1 tablet by mouth 2 (two) times daily as needed (back pain/spasm ). [facility] busPIRone 5 mg tablet 5-03 00:00: 00 04-24 00:00 :00 No [id number] 5mg Take 1 tablet by mouth 2 (two) times daily as needed (anxiety). [facility] methylPREDN ISolone 4 mg tablets -25 00:00: 00 Yes 10mg Take 10 mg by mouth. [facility] hydrOXYzine 25 mg tablet 04-19 00:00: 00 Yes TAKE ONE (1) TABLET(S) BY MOUTH EVERY FOUR TO SIX HOURS. [facility] orlistat 60 mg capsule -05 00:00: 00 03-19 00:00 :00 No [id number] 4107 60mg Take 1 capsule by mouth in the morning and 1 capsule at noon and 1 capsule in the evening. Take with meals. [facility] busPIRone 5 mg tablet 16 00:00: 00 Yes [id number] 5mg Take 1 tablet by mouth 2 (two) times daily as needed (anxiety). [facility] loratadine 10 mg tablet -16 00:00: 00 Yes [id number] 10mg Take 1 tablet by mouth in the morning. [facility] FLUoxetine 10 mg capsule 16 14:30: 15 12-15 00:00 :00 No 10mg Take 10 mg by mouth in the morning. [facility] ketorolac (TORADOL) injection 30 mg -16 03:00: 00 12-15 02:04 :00 No 30mg 30 mg, Slow IV Push, ONCE, 1 dose, On Mon12/14/22 at 2100, Routine [facility] acetaminoph en (TYLENOL) tablet 1,000 mg -16 01:30: 00 12-15 01:19 :00 No 1000mg 1,000 mg, Oral, ONCE, 1 dose, On Mon12/14/22 at 1930, Routine [facility] NaCl 0.9% (NS) bolus infusion 1,000 mL 12-15 01:15: 00 12-15 03:04 :00 No 1000mL at 999 mL/hr, 1,000 mL, IV Infusion, ONCE, 1 dose, On Mon12/14/22 at 1915, KAIN [facility] busPIRone 5 mg tablet 12-15 00:00: 00 01-12 00:00 :00 No [id number] 5mg Take 1 tablet by mouth 2 (two) times daily as needed (anxiety). [facility] ibuprofen 600 mg tablet 12-14 00:00: 00 Yes [id number] 600mg Take 1 tablet by mouth every 6 (six) hours as needed for Pain (scale 4-6). [facility] BUSPIRONE 15 mg tablet 11-17 00:00: 00 12-15 00:00 :00 No [id number] TAKE ONE (1) TABLET(S) BY MOUTH TWICE A DAY NEEDED FOR ANXIETY. [facility] BUSPIRONE 15 mg tablet 2021-10 00:00: 00 Yes [id number] TAKE ONE (1) TABLET BY MOUTH 2 TIMES DAILY NEEDED FOR (ANXIETY). [facility] busPIRone 15 mg tablet 2021-10 00:00: 00 10-12 00:00 :00 No [id number] 15mg Take 1 tablet by mouth 2 (two) times daily as needed (anxiety). Follow-up for refills and fasting labs. [facility] liraglutide , weight loss, (SAXENDA) 3 mg/0.5 mL (18 mg/3 mL) PnIj 2021-1008 00:00: 00 12-15 00:00 :00 No [id number] 4107 Take 0.6mg daily for a week , then increase to 1.2mg daily for a week if tolerate, then increase to 1.8mg daily for a week if tolerate, then increase to 2.4mg daily for a week if tolerate, then increase to 3.0mg dailymax dose tolerate, [facility] FEXOFENADIN E 180 mg tablet 2021-10 00:00: 00 01-12 00:00 :00 No [id number] TAKE ONE (1) TABLET(S) BY MOUTH ONCE A DAY. [facility] FLUoxetine 10 mg capsule 2021-10 15:40: 39 Yes 10mg Take 10 mg by mouth in the morning. [facility] levonorgest reL (KYLEENA) IUD 1 Device 06-29 22:45: 00 06-29 22:18 :00 No [id number] 1{devic e} [facility] BUSPIRONE 15 mg tablet 05-31 00:00: 00 09-09 00:00 :00 No [id number] TAKE ONE-HALF TO ONE (1/2 TO 1) TABLET(S) BY MOUTH TWICE A DAY NEEDED FOR ANXIETY. [facility] medroxyPROG ESTERone (PROVERA) 10 mg tablet 05-26 00:00: 00 06-29 00:00 :00 No [id number] 20mg Take 2 tablets by mouth in the morning. [facility] miSOPROStoL 200 mcg tablet 05-26 00:00: 00 06-29 00:00 :00 No [id number] 200ug Take 1 tablet by mouth SEE-INSTRU CTIONS. Take one tab the night before and one tab the morning of procedure [facility] miSOPROStoL 200 mcg tablet 524 00:00: 00 04-07 00:00 :00 No [id number] Take one tablet night before procedure, then take one tablet morning of procedure [facility] FEXOFENADIN E 180 mg tablet 02-23 00:00: 00 09-05 00:00 :00 No [id number] TAKE ONE (1) TABLET(S) BY MOUTH ONCE A DAY. [facility] BUSPIRONE 15 mg tablet 02-23 00:00: 05-31 00:00 :00 No [id number] TAKE 1/2 TO 1 TABLET TWICE DAILY NEED FOR ANXIETY. [facility] FEXOFENADIN E 180 mg tablet 2020-10 00:00: 02-23 00:00 :00 No [id number] TAKE ONE (1) TABLET(S) BY MOUTH ONCE A DAY. [facility] FLUTICASONE PROPIONATE 50 mcg/actuati on nasal spray 05-02 00:00: 00 03-12 00:00 :00 No [id number] INSTILL TWO (2) SPRAY(S) INTO EACH NOSTRIL ONCE A DAY. [facility] BUSPIRONE 15 mg tablet 02-24 00:00: 00 02-23 00:00 :00 No [id number] TAKE 1/2 TO 1 TABLET TWICE DAILY NEED FOR ANXIETY. [facility] FEXOFENADIN E 180 mg tablet 2019-10 00:00: 10-18 00:00 :00 No [id number] TAKE ONE (1) TABLET(S) BY MOUTH ONCE A DAY. [facility] FLUTICASONE PROPIONATE 50 mcg/actuati on nasal spray 2019-10 00:00: 00 05-02 00:00 :00 No [id number] INSTILL TWO (2) SPRAY(S) INTO EACH NOSTRIL ONCE A DAY. [facility] busPIRone 15 mg tablet 2019-10 00:00: 02-24 00:00 :00 No [id number] 7.5mg Take 0.5-1 tablets by mouth 2 (two) times daily as needed (anxiety). [facility] FLUoxetine 20 mg capsule 2019-10 00:00: 00 11-09 00:00 :00 No [id number] 20mg Take 1 capsule by mouth every morning. [facility] Ferrous Fumarate (FERROCITE) 324 mg (106 mg iron) Tab 06-19 00:00: 12-10 00:00 :00 No [id number] 1{tbl} Take 1 tablet by mouth daily. Take with a source of vitamin C [facility] FLUoxetine 10 mg capsule 05-07 00:00: 00 09-18 00:00 :00 No [id number] 10mg Take 1 capsule by mouth daily. [facility] fluticasone propionate 50 mcg/actuati on nasal spray 2018-10 00:00: 00 10-15 00:00 :00 No [id number] 2{spray } Use 2 Sprays in each nostril daily. [facility] fexofenadin e 180 mg tablet 2018-10 00:00: 00 10-15 00:00 :00 No [id number] 180mg Take 1 tablet by mouth daily. [facility] Immunizations Ordered Immunization Name Filled Immunization Name Date Status Comments Source Pneumococcal Polysaccharide, PPSV23 (PNEUMOVAX) 2024-07-17 00:00:00 Completed [facility] TDAP 2024-07-17 00:00:00 Completed [facility] Pneumococcal Polysaccharide, PPSV23 (PNEUMOVAX) 2024-03-28 18:20:00 Completed [facility] TDAP 2024-03-28 18:20:00 Completed [facility] Pneumococcal Polysaccharide, PPSV23 (PNEUMOVAX) 2024-03-28 00:00:00 Completed [facility] TDAP 2024-03-28 00:00:00 Completed [facility] Pneumococcal Polysaccharide, PPSV23 (PNEUMOVAX) 2024-03-27 00:00:00 Completed [facility] TDAP 2024-03-27 00:00:00 Completed [facility] Pneumococcal Polysaccharide, PPSV23 (PNEUMOVAX) 2024-03-18 15:16:32 Completed [facility] TDAP 2024-03-18 15:16:32 Completed [facility] Pneumococcal Polysaccharide, PPSV23 (PNEUMOVAX) 2024-03-18 10:00:00 Completed [facility] TDAP 2024-03-18 10:00:00 Completed [facility] Pneumococcal Polysaccharide, PPSV23 (PNEUMOVAX) 2024-03-12 16:00:00 Completed [facility] TDAP 2024-03-12 16:00:00 Completed [facility] Pneumococcal Polysaccharide, PPSV23 (PNEUMOVAX) 2024-03-12 14:47:26 Completed [facility] TDAP 2024-03-12 14:47:26 Completed [facility] Pneumococcal Polysaccharide, PPSV23 (PNEUMOVAX) 2024-03-12 00:00:00 Completed [facility] TDAP 2024-03-12 00:00:00 Completed [facility] Pneumococcal Polysaccharide, PPSV23 (PNEUMOVAX) 2024-03-06 00:00:00 Completed [facility] TDAP 2024-03-06 00:00:00 Completed [facility] Pneumococcal Polysaccharide, PPSV23 (PNEUMOVAX) 2024-03-02 08:00:00 Completed [facility] TDAP 2024-03-02 08:00:00 Completed [facility] Pneumococcal Polysaccharide, PPSV23 (PNEUMOVAX) 2024-03-02 00:00:00 Completed [facility] TDAP 2024-03-02 00:00:00 Completed [facility] Pneumococcal Polysaccharide, PPSV23 (PNEUMOVAX) 2024-03-01 15:00:00 Completed [facility] TDAP 2024-03-01 15:00:00 Completed [facility] Pneumococcal Polysaccharide, PPSV23 (PNEUMOVAX) 2024-03-01 14:30:00 Completed [facility] TDAP 2024-03-01 14:30:00 Completed [facility] Pneumococcal Polysaccharide, PPSV23 (PNEUMOVAX) 2024-03-01 14:00:00 Completed [facility] TDAP 2024-03-01 14:00:00 Completed [facility] Pneumococcal Polysaccharide, PPSV23 (PNEUMOVAX) 2024-02-24 00:00:00 Completed [facility] TDAP 2024-02-24 00:00:00 Completed [facility] Pneumococcal Polysaccharide, PPSV23 (PNEUMOVAX) 2023-01-16 00:00:00 Completed [facility] TDAP 2023-01-16 00:00:00 Completed [facility] Pneumococcal Polysaccharide, PPSV23 (PNEUMOVAX) 2022-05-12 00:00:00 Completed [facility] TDAP 2022-05-12 00:00:00 Completed [facility] Pneumococcal Polysaccharide, PPSV23 (PNEUMOVAX) 2022-04-05 00:00:00 Completed [facility] TDAP 2022-04-05 00:00:00 Completed [facility] Pneumococcal Polysaccharide, PPSV23 (PNEUMOVAX) 2022-03-07 00:00:00 Completed [facility] TDAP 2022-03-07 00:00:00 Completed [facility] Pneumococcal Polysaccharide, PPSV23 (PNEUMOVAX) 2022-02-22 00:00:00 Completed [facility] TDAP 2022-02-22 00:00:00 Completed [facility] Pneumococcal Polysaccharide, PPSV23 (PNEUMOVAX) 2022-02-21 00:00:00 Completed [facility] TDAP 2022-02-21 00:00:00 Completed [facility] Pneumococcal Polysaccharide, PPSV23 (PNEUMOVAX) 2021-12-14 00:00:00 Completed [facility] TDAP 2021-12-14 00:00:00 Completed [facility] Pneumococcal Polysaccharide, PPSV23 (PNEUMOVAX) 2021-12-14 00:00:00 Completed [facility] TDAP 2021-12-14 00:00:00 Completed [facility] Pneumococcal Polysaccharide, PPSV23 (PNEUMOVAX) 2020-10-19 00:00:00 Completed [facility] TDAP 2020-10-19 00:00:00 Completed [facility] Pneumococcal Polysaccharide, PPSV23 (PNEUMOVAX) 2020-10-16 00:00:00 Completed [facility] TDAP 2020-10-16 00:00:00 Completed [facility] TDAP 2020-08-27 00:00:00 Completed [facility] TDAP 2020-08-27 00:00:00 Completed [facility] TDAP 2020-08-27 00:00:00 Completed [facility] TDAP 2020-08-27 00:00:00 Completed [facility] TDAP 2020-08-27 00:00:00 Completed [facility] TDAP 2020-08-27 00:00:00 Completed [facility] TDAP 2020-08-27 00:00:00 Completed [facility] TDAP 2020-08-27 00:00:00 Completed [facility] TDAP 2020-08-27 00:00:00 Completed [facility] TDAP 2020-08-27 00:00:00 Completed [facility] TDAP 2020-08-27 00:00:00 Completed [facility] TDAP 2020-08-27 00:00:00 Completed [facility] TDAP 2020-08-27 00:00:00 Completed [facility] TDAP 2020-08-27 00:00:00 Completed [facility] TDAP 2020-08-27 00:00:00 Completed [facility] TDAP 2020-08-27 00:00:00 Completed [facility] TDAP 2020-08-27 00:00:00 Completed [facility] TDAP 2020-08-27 00:00:00 Completed [facility] TDAP 2020-08-27 00:00:00 Completed [facility] TDAP 2020-08-27 00:00:00 Completed [facility] TDAP 2020-08-27 00:00:00 Completed [facility] TDAP 2020-08-27 00:00:00 Completed [facility] TDAP 2020-08-27 00:00:00 Completed [facility] TDAP 2020-08-27 00:00:00 Completed [facility] TDAP 2020-08-27 00:00:00 Completed [facility] TDAP 2020-08-27 00:00:00 Completed [facility] TDAP 2020-08-27 00:00:00 Completed [facility] TDAP 2020-08-27 00:00:00 Completed [facility] TDAP 2020-08-27 00:00:00 Completed [facility] Pneumococcal Polysaccharide, PPSV23 (PNEUMOVAX) 2020-06-05 00:00:00 Completed [facility] Pneumococcal Polysaccharide, PPSV23 (PNEUMOVAX) 2020-05-07 00:00:00 Completed [facility] Pneumococcal Polysaccharide, PPSV23 (PNEUMOVAX) 2020-05-07 00:00:00 Completed [facility] Pneumococcal Polysaccharide, PPSV23 (PNEUMOVAX) 2020-05-07 00:00:00 Completed [facility] Pneumococcal Polysaccharide, PPSV23 (PNEUMOVAX) 2020-05-07 00:00:00 Completed [facility] Pneumococcal Polysaccharide, PPSV23 (PNEUMOVAX) 2020-05-07 00:00:00 Completed [facility] Pneumococcal Polysaccharide, PPSV23 (PNEUMOVAX) 2020-05-07 00:00:00 Completed [facility] Pneumococcal Polysaccharide, PPSV23 (PNEUMOVAX) 2020-05-07 00:00:00 Completed [facility] Pneumococcal Polysaccharide, PPSV23 (PNEUMOVAX) 2020-05-07 00:00:00 Completed [facility] Pneumococcal Polysaccharide, PPSV23 (PNEUMOVAX) 2020-05-07 00:00:00 Completed [facility] Pneumococcal Polysaccharide, PPSV23 (PNEUMOVAX) 2020-05-07 00:00:00 Completed [facility] Pneumococcal Polysaccharide, PPSV23 (PNEUMOVAX) 2020-05-07 00:00:00 Completed [facility] Pneumococcal Polysaccharide, PPSV23 (PNEUMOVAX) 2020-05-07 00:00:00 Completed [facility] Pneumococcal Polysaccharide, PPSV23 (PNEUMOVAX) 2020-05-07 00:00:00 Completed [facility] Pneumococcal Polysaccharide, PPSV23 (PNEUMOVAX) 2020-05-07 00:00:00 Completed [facility] Pneumococcal Polysaccharide, PPSV23 (PNEUMOVAX) 2020-05-07 00:00:00 Completed [facility] Pneumococcal Polysaccharide, PPSV23 (PNEUMOVAX) 2020-05-07 00:00:00 Completed [facility] Pneumococcal Polysaccharide, PPSV23 (PNEUMOVAX) 2020-05-07 00:00:00 Completed [facility] Pneumococcal Polysaccharide, PPSV23 (PNEUMOVAX) 2020-05-07 00:00:00 Completed [facility] Pneumococcal Polysaccharide, PPSV23 (PNEUMOVAX) 2020-05-07 00:00:00 Completed [facility] Pneumococcal Polysaccharide, PPSV23 (PNEUMOVAX) 2020-05-07 00:00:00 Completed [facility] Pneumococcal Polysaccharide, PPSV23 (PNEUMOVAX) 2020-05-07 00:00:00 Completed [facility] Pneumococcal Polysaccharide, PPSV23 (PNEUMOVAX) 2020-05-07 00:00:00 Completed [facility] Pneumococcal Polysaccharide, PPSV23 (PNEUMOVAX) 2020-05-07 00:00:00 Completed [facility] Pneumococcal Polysaccharide, PPSV23 (PNEUMOVAX) 2020-05-07 00:00:00 Completed [facility] Pneumococcal Polysaccharide, PPSV23 (PNEUMOVAX) 2020-05-07 00:00:00 Completed [facility] Pneumococcal Polysaccharide, PPSV23 (PNEUMOVAX) 2020-05-07 00:00:00 Completed [facility] Pneumococcal Polysaccharide, PPSV23 (PNEUMOVAX) 2020-05-07 00:00:00 Completed [facility] Pneumococcal Polysaccharide, PPSV23 (PNEUMOVAX) 2020-05-07 00:00:00 Completed [facility] Pneumococcal Polysaccharide, PPSV23 (PNEUMOVAX) 2020-05-07 00:00:00 Completed [facility] Vital Signs Vital Name Observation Time Observation Value Comments S ource Systolic blood pressure 2025-07-20 22:02:00 111 mm[Hg] [facility] Diastolic blood pressure 2025-07-20 22:02:00 74 mm[Hg] [facility] Heart rate 2025-07-20 22:02:00 85 /min [facility] Body temperature 2025-07-20 22:02:00 37.06 Beronica [facility] Body height 2025-07-20 22:02:00 154.9 cm [facility] Body weight 2025-07-20 22:02:00 85.594 kg [facility] BMI 2025-07-20 22:02:00 35.65 kg/m2 [facility] Oxygen saturation in Arterial blood by Pulse oximetry 2025-07-20 22:02:00 99 /min [facility] Systolic blood pressure 2025-07-18 20:01:00 117 mm[Hg] [facility] Diastolic blood pressure 2025-07-18 20:01:00 81 mm[Hg] [facility] Heart rate 2025-07-18 20:01:00 87 /min [facility] Respiratory rate 2025-07-18 20:01:00 18 /min [facility] Body height 2025-07-18 20:01:[address] [facility] Body weight 2025-07-18 20:01:[address] [facility] BMI 2025-07-18 20:01:00 36.28 kg/m2 Univ [facility] Systolic blood pressure 2025-06-19 18:59:00 127 mm[Hg] [facility] Diastolic blood pressure 2025-06-19 18:59:00 81 mm[Hg] [facility] Heart rate 2025-06-19 18:59:00 110 /min Un[facility] Body height 2025-06-19 18:59:[address] [facility] Body weight 2025-06-19 18:59:00 86.501 kg [facility] BMI 2025-06-19 18:59:00 36.03 kg/m2 [facility] Oxygen saturation in Arterial blood by Pulse oximetry 2025-06-19 18:59:00 99 /min [facility] Systolic blood pressure 2025-06-02 19:00:00 112 mm[Hg] [facility] Diastolic blood pressure 2025-06-02 19:00:00 78 mm[Hg] [facility] Heart rate 2025-06-02 19:00:00 64 /min Un[facility] Body temperature 2025-06-02 19:00:00 36.78 Beronica [facility] Respiratory rate 2025-06-02 19:00:00 22 /min [facility] Oxygen saturation in Arterial blood by Pulse oximetry 2025-06-02 19:00:00 99 /min [facility] Body height 2025-06-02 15:27:00 154.9 cm [facility] 2025-06-02 15:27:[address] [facility] BMI 2025-06-02 15:27:00 35.90 kg/m2 [facility] Systolic blood pressure 2025-05-23 13:11:00 115 mm[Hg] [facility] Diastolic blood pressure 2025-05-23 13:11:00 77 mm[Hg] [facility] Heart rate 2025-05-23 13:11:00 80 /min [facility] Respiratory rate 2025-05-23 13:11:00 18 /min [facility] Body height 2025-05-23 13:11:00 154.9 cm [facility] Body weight 2025-05-23 13:11:00 85.73 kg [facility] BMI 2025-05-23 13:11:00 35.71 kg/m2 Univ [facility] Systolic blood pressure 2025-03-19 12:03:00 121 mm[Hg] [facility] Diastolic blood pressure 2025-03-19 12:03:00 77 mm[Hg] [facility] Heart rate 2025-03-19 12:03:00 70 /min [facility] Body height 2025-03-19 12:03:[address] [facility] Body weight 2025-03-19 12:03:00 87.272 kg [facility] BMI 2025-03-19 12:03:00 36.35 kg/m2 [facility] Oxygen saturation in Arterial blood by Pulse oximetry 2025-03-19 12:03:00 99 /min [facility] Systolic blood pressure 2025-03-14 18:50:00 124 mm[Hg] [facility] Diastolic blood pressure 2025-03-14 18:50:00 78 mm[Hg] [facility] Heart rate 2025-03-14 18:50:00 103 /min [facility] Respiratory rate 2025-03-14 18:50:00 18 /min [facility] Body height 2025-03-14 18:50:00 154.9 cm [facility] Body weight 2025-03-14 18:50:00 87.998 kg [facility] BMI 2025-03-14 18:50:00 36.66 kg/m2 Univ [facility] Oxygen saturation in Arterial blood by Pulse oximetry 2025-03-14 18:50:00 99 /min [facility] Systolic blood pressure 2025-01-29 15:18:00 121 mm[Hg] [facility] Diastolic blood pressure 2025-01-29 15:18:00 79 mm[Hg] [facility] Heart rate 2025-01-29 15:18:00 74 /min [facility] Body height 2025-01-29 15:18:00 154.9 cm [facility] Body weight 2025-01-29 15:18:00 87.045 kg [facility] BMI 2025-01-29 15:18:00 36.26 kg/m2 [facility] Oxygen saturation in Arterial blood by Pulse oximetry 2025-01-29 15:18:00 97 /min [facility] Systolic blood pressure 2024-09-13 14:44:00 115 mm[Hg] [facility] Diastolic blood pressure 2024-09-13 14:44:00 79 mm[Hg] [facility] Heart rate 2024-09-13 14:44:00 89 /min [facility] Body temperature 2024-09-13 14:44:00 36.67 Beronica [facility] Respiratory rate 2024-09-13 14:44:00 18 /min [facility] Body height 2024-09-13 14:44:00 154.9 cm [facility] Body weight 2024-09-13 14:44:00 82.645 kg [facility] BMI 2024-09-13 14:44:00 34.43 kg/m2 Univ [facility] Oxygen saturation in Arterial blood by Pulse oximetry 2024-09-13 14:44:00 97 /min [facility] Systolic blood pressure 2024-08-02 17:41:00 116 mm[Hg] [facility] Diastolic blood pressure 2024-08-02 17:41:00 81 mm[Hg] [facility] Heart rate 2024-08-02 17:41:00 77 /min Unive [facility] Respiratory rate 2024-08-02 17:41:00 18 /min [facility] Body height 2024-08-02 17:41:[address] [facility] Body weight 2024-08-02 17:41:[address] [facility] BMI 2024-08-02 17:41:00 34.77 kg/m2 Univ [facility] Oxygen saturation in Arterial blood by Pulse oximetry 2024-08-02 17:41:00 100 /min [facility] Systolic blood pressure 2024-07-18 19:52:00 109 mm[Hg] [facility] Diastolic blood pressure 2024-07-18 19:52:00 72 mm[Hg] [facility] Heart rate 2024-07-18 19:52:00 99 /min Un[facility] Respiratory rate 2024-07-18 19:52:00 12 /min [facility] Body height 2024-07-18 19:52:00 154.9 cm [facility] Body weight 2024-07-18 19:52:00 84.369 kg [facility] BMI 2024-07-18 19:52:00 35.14 kg/m2 [facility] Oxygen saturation in Arterial blood by Pulse oximetry 2024-07-18 19:52:00 99 /min [facility] Systolic blood pressure 2024-06-18 21:15:00 126 mm[Hg] [facility] Diastolic blood pressure 2024-06-18 21:15:00 82 mm[Hg] [facility] Heart rate 2024-06-18 21:15:00 108 /min Un[facility] Body temperature 2024-06-18 21:15:00 36.67 Beronica [facility] Body height 2024-06-18 21:15:00 154.9 cm [facility] Body weight 2024-06-18 21:15:00 84.732 kg [facility] BMI 2024-06-18 21:15:00 35.30 kg/m2 Univ [facility] Systolic blood pressure 2024-06-06 15:48:00 105 mm[Hg] [facility] Diastolic blood pressure 2024-06-06 15:48:00 69 mm[Hg] [facility] Heart rate 2024-06-06 15:48:00 92 /min Unive [facility] Body temperature 2024-06-06 15:48:00 36.06 Beronica [facility] Body height 2024-06-06 15:48:[address] [facility] Body weight 2024-06-06 15:48:[address] [facility] BMI 2024-06-06 15:48:00 34.58 kg/m2 Univ [facility] Systolic blood pressure 2024-05-20 20:25:00 124 mm[Hg] [facility] Diastolic blood pressure 2024-05-20 20:25:00 83 mm[Hg] [facility] Heart rate 2024-05-20 20:25:00 105 /min Unive [facility] Body temperature 2024-05-20 20:25:00 36.56 Beronica [facility] Respiratory rate 2024-05-20 20:25:00 16 /min [facility] Body height 2024-05-20 20:25:[address] [facility] Body weight 2024-05-20 20:25:[address] [facility] BMI 2024-05-20 20:25:00 35.52 kg/m2 Univ [facility] Systolic blood pressure 2024-03-28 23:41:00 127 mm[Hg] [facility] Diastolic blood pressure 2024-03-28 23:41:00 84 mm[Hg] [facility] Heart rate 2024-03-28 23:41:00 59 /min [facility] Body temperature 2024-03-28 23:41:00 36.89 Beronica [facility] Respiratory rate 2024-03-28 23:41:00 17 /min [facility] Body weight 2024-03-28 23:41:00 82.691 kg [facility] BMI 2024-03-28 23:41:00 34.45 kg/m2 [facility] Oxygen saturation in Arterial blood by Pulse oximetry 2024-03-28 23:41:00 100 /min [facility] Body temperature 2024-03-18 14:42:00 36.56 Beronica [facility] Body height 2024-03-18 14:42:00 154.9 cm [facility] Body weight 2024-03-18 14:42:00 83.054 kg [facility] BMI 2024-03-18 14:42:00 34.60 kg/m2 [facility] Systolic blood pressure 2024-03-12 21:01:00 117 mm[Hg] [facility] Diastolic blood pressure 2024-03-12 21:01:00 80 mm[Hg] [facility] Heart rate 2024-03-12 21:01:00 94 /min [facility] Respiratory rate 2024-03-12 21:01:00 18 /min [facility] Body height 2024-03-12 21:01:00 154.9 cm [facility] Body weight 2024-03-12 21:01:00 84.278 kg [facility] BMI 2024-03-12 21:01:00 35.11 kg/m2 [facility] Systolic blood pressure 2024-03-01 19:00:00 111 mm[Hg] [facility] Diastolic blood pressure 2024-03-01 19:00:00 71 mm[Hg] [facility] Heart rate 2024-03-01 19:00:00 98 /min [facility] Body temperature 2024-03-01 19:00:00 36.89 Beronica [facility] Body height 2024-03-01 19:00:[address] [facility] Body weight 2024-03-01 19:00:00 83.915 kg [facility] BMI 2024-03-01 19:00:00 34.96 kg/m2 [facility] Oxygen saturation in Arterial blood by Pulse oximetry 2024-03-01 19:00:00 98 /min [facility] Systolic blood pressure 2024-03-01 18:57:00 111 mm[Hg] [facility] Diastolic blood pressure 2024-03-01 18:57:00 71 mm[Hg] [facility] Heart rate 2024-03-01 18:57:00 98 /min Unive [facility] Body temperature 2024-03-01 18:57:00 36.89 Beronica [facility] Body height 2024-03-01 18:57:00 154.9 cm [facility] Body weight 2024-03-01 18:57:00 83.915 kg [facility] BMI 2024-03-01 18:57:00 34.96 kg/m2 [facility] Oxygen saturation in Arterial blood by Pulse oximetry 2024-03-01 18:57:00 98 /min [facility] Systolic blood pressure 2023-05-04 20:10:00 118 mm[Hg] [facility] Diastolic blood pressure 2023-05-04 20:10:00 78 mm[Hg] [facility] Heart rate 2023-05-04 20:10:00 99 /min Unive [facility] Body temperature 2023-05-04 20:10:00 36.89 Beronica [facility] Body height 2023-05-04 20:10:00 154.9 cm [facility] Body weight 2023-05-04 20:10:00 80.559 kg [facility] BMI 2023-05-04 20:10:00 33.56 kg/m2 Univ [facility] Systolic blood pressure 2023-04-26 16:28:00 110 mm[Hg] [facility] Diastolic blood pressure 2023-04-26 16:28:00 75 mm[Hg] [facility] Heart rate 2023-04-26 16:28:00 73 /min Unive [facility] Respiratory rate 2023-04-26 16:28:00 19 /min [facility] Body height 2023-04-26 16:28:[address] [facility] Body weight 2023-04-26 16:28:00 79.969 kg [facility] BMI 2023-04-26 16:28:00 33.31 kg/m2 Univ [facility] Oxygen saturation in Arterial blood by Pulse oximetry 2023-04-26 16:28:00 98 /min [facility] Systolic blood pressure 2023-03-01 20:52:00 117 mm[Hg] [facility] Diastolic blood pressure 2023-03-01 20:52:00 76 mm[Hg] [facility] Heart rate 2023-03-01 20:52:00 84 /min Unive [facility] Body temperature 2023-03-01 20:52:00 37.11 Beronica [facility] Respiratory rate 2023-03-01 20:52:00 18 /min [facility] Body height 2023-03-01 20:52:00 154.9 cm [facility] Body weight 2023-03-01 20:52:00 81.829 kg [facility] BMI 2023-03-01 20:52:00 34.09 kg/m2 [facility] Oxygen saturation in Arterial blood by Pulse oximetry 2023-03-01 20:52:00 98 /min [facility] Systolic blood pressure 2023-01-12 20:59:00 120 mm[Hg] [facility] Diastolic blood pressure 2023-01-12 20:59:00 81 mm[Hg] [facility] Heart rate 2023-01-12 20:59:00 92 /min Unive [facility] Body temperature 2023-01-12 20:59:00 37.22 Beronica [facility] Body height 2023-01-12 20:59:[address] [facility] Body weight 2023-01-12 20:59:[address] [facility] BMI 2023-01-12 20:59:00 30.67 kg/m2 Univ [facility] Oxygen saturation in Arterial blood by Pulse oximetry 2023-01-12 20:59:00 100 /min [facility] Systolic blood pressure 2022-12-15 19:53:00 122 mm[Hg] [facility] Diastolic blood pressure 2022-12-15 19:53:00 75 mm[Hg] [facility] Heart rate 2022-12-15 19:53:00 88 /min Unive [facility] Body temperature 2022-12-15 19:53:00 37.39 Beronica [facility] Body height 2022-12-15 19:53:[address] [facility] Body weight 2022-12-15 19:53:00 81.149 kg [facility] BMI 2022-12-15 19:53:00 33.80 kg/m2 [facility] Oxygen saturation in Arterial blood by Pulse oximetry 2022-12-15 19:53:00 100 /min [facility] Systolic blood pressure 2022-12-15 05:01:00 110 mm[Hg] [facility] Diastolic blood pressure 2022-12-15 05:01:00 66 mm[Hg] [facility] Heart rate 2022-12-15 05:01:00 68 /min [facility] Respiratory rate 2022-12-15 05:01:00 21 /min [facility] Oxygen saturation in Arterial blood by Pulse oximetry 2022-12-15 05:01:00 100 /min [facility] Body temperature 2022-12-15 00:18:00 37.28 Beronica [facility] Body height 2022-12-15 00:18:[address] [facility] Body weight 2022-12-15 00:18:00 79.833 kg [facility] BMI 2022-12-15 00:18:00 33.25 kg/m2 [facility] Systolic blood pressure 2022-12-14 23:40:00 126 mm[Hg] [facility] Diastolic blood pressure 2022-12-14 23:40:00 82 mm[Hg] [facility] Heart rate 2022-12-14 23:39:00 91 /min Unive [facility] Body temperature 2022-12-14 23:39:00 37.22 Beronica [facility] Respiratory rate 2022-12-14 23:39:00 16 /min [facility] Body height 2022-12-14 23:39:[address] [facility] Body weight 2022-12-14 23:39:[address] [facility] BMI 2022-12-14 23:39:00 33.25 kg/m2 Univ [facility] Oxygen saturation in Arterial blood by Pulse oximetry 2022-12-14 23:39:00 98 /min [facility] Systolic blood pressure 2022-09-06 21:59:00 115 mm[Hg] [facility] Diastolic blood pressure 2022-09-06 21:59:00 79 mm[Hg] [facility] Heart rate 2022-09-06 21:59:00 82 /min Unive [facility] Body height 2022-09-06 21:59:[address] [facility] Body weight 2022-09-06 21:59:00 79.379 kg [facility] BMI 2022-09-06 21:59:00 33.07 kg/m2 [facility] Oxygen saturation in Arterial blood by Pulse oximetry 2022-09-06 21:59:00 100 /min [facility] Systolic blood pressure 2022-08-01 20:38:00 129 mm[Hg] [facility] Diastolic blood pressure 2022-08-01 20:38:00 76 mm[Hg] [facility] Heart rate 2022-08-01 20:38:00 52 /min Unive [facility] Body temperature 2022-08-01 20:38:00 37.06 Beronica [facility] Respiratory rate 2022-08-01 20:38:00 16 /min [facility] Body height 2022-08-01 20:38:[address] [facility] Body weight 2022-08-01 20:38:00 77.565 kg [facility] BMI 2022-08-01 20:38:00 32.31 kg/m2 [facility] Systolic blood pressure 2022-06-29 20:41:00 110 mm[Hg] [facility] Diastolic blood pressure 2022-06-29 20:41:00 73 mm[Hg] [facility] Heart rate 2022-06-29 20:41:00 89 /min [facility] Body temperature 2022-06-29 20:41:00 37 Beronica [facility] Respiratory rate 2022-06-29 20:41:00 18 /min [facility] Body height 2022-06-29 20:41:00 154.9 cm [facility] Body weight 2022-06-29 20:41:00 77.293 kg [facility] BMI 2022-06-29 20:41:00 32.20 kg/m2 [facility] Procedures Procedure Date / Time Performed Performing Clinician Source TROPONIN I 2025-06-02 17:42:00 Magnus Pinto [facility] TROPONIN I 2025-06-02 16:05:00 Magnus Pinto [facility] COMP. METABOLIC PANEL (62979) 2025-06-02 16:05:00 Magnus Pinto [facility] CBC WITH DIFF 2025-06-02 16:05:00 Magnus Pinto [facility] N-TERMINAL PRO-BNP 2025-06-02 16:05:00 Magnus Pinto [facility] T-4, FREE-Q 2025 15:23:00 Rekha Bedoya [facility] T3, FREE-Q 2025 15:23:00 Rekha Bedoya [facility] COMPLETE ECHOCARDIOGRAM DOBUTAMINE STRESS TEST W CONTRAST 2025-01-29 16:35:30 Kalli Cross [facility] FL TIME OR (NON-REPORTABLE) 2024-08-02 18:30:00 Tabatha Limon [facility] RADIOLOGY DOCUMENTATION 2024-06-06 22:22:36 Doct or Unassigned, Bejou [facility] POCT URINALYSIS W/O SPECIFIC GRAVITY 2024-05-20 00:00:00 Aspen Perla [facility] POCT SARS-COV-2 ANTIGEN (BINAX NOW) 2024 00:14:00 Alphonse Aleja [facility] POCT MOLECULAR STREP 2024-03-28 23:39:00 Unknown, Atte myke [facility] CT HEAD WO CONTRAST 2024-03-18 21:12:36 Flower Miller [facility] XR LUMBAR SPINE 4 VW 2024-03-12 20:18:25 Mily Bedoya [facility] XR SACRUM AND COCCYX 2024-03-12 20:18:25 Mily Bedoya [facility] XR CERVICAL SPINE 3 VW 2024-03-12 20:18:25 Willis Bedoya [facility] MAGNESIUM 2024-03-02 13:27:00 Rekha Bedoya [facility] VITAMIN B12, LEVEL 2024-03-02 13:27:00 Rekha Bedoya [facility] FOLATE 2024-03-02 13:27:00 Rekha Bedoya [facility] FREE T4 2024-03-02 13:27:00 Rekha Bedoya [facility] THYROID STIMULATING HORMONE 2024-03-02 13:27:00 Rekha Bedoya [facility] COMP. METABOLIC PANEL ([id number]) 2024-03-02 13:27:00 Rekha Bedoya [facility] LIPID PANEL ([id number])(TOTAL CHOLESTEROL, TRIGLYCERIDES, HDL) 2024-03-02 13:27:00 Rekha Bedoya [facility] CBC WITH DIFF 2024-03-02 13:27:00 Rekha Bedoya [facility] GLYCOSYLATED HEMOGLOBIN (A1C) 2024-03-02 13:27:00 Rekha Bedoya [facility] CORTISOL AM 2024-03-02 13:27:00 Rekha Bedoya [facility] INSULIN, LEVEL 2024-03-02 13:27:[address] [facility] [facility] D, 25-OH 2024-03-02 13:27:00 Rekha Bedoya [facility] POCT TEST 2024-03-01 00:00:00 Rekha Bedoya [facility] CONSENT/REFUSAL FOR DIAGNOSIS AND TREATMENT 2023-06-16 19:35:06 Doctor Unassigned, Bejou [facility] DME/SUPPLY JUSTIFICATION 2023-03-01 05:01:00 Doc tor Unassigned, Bejou [facility] TROPONIN I 2022-12-15 03:24:00 Bartolo Mayfield U [facility] LIPASE 2022-12-15 00:50:00 Bartolo Mayfield U [facility] TROPONIN I 2022-12-15 00:50:00 Bartolo Mayfield [facility] FREE T4 2022-12-15 00:50:00 Bartolo Mayfield [facility] THYROID STIMULATING HORMONE 2022-12-15 00:50:00 Bartolo Mayfield [facility] COMP. METABOLIC PANEL ([id number]) 2022-12-15 00:50:00 Bartolo Mayfield [facility] CBC WITH DIFF 2022-12-15 00:50:00 Bartolo Mayfield [facility] URINALYSIS 2022-12-15 00:50:00 Bartolo Mayfield [facility] N-TERMINAL PRO-BNP 2022-12-15 00:50:00 Shima Mayfield [facility] POCT TEST 2022-12-15 00:45:00 Diallo Mayfield [facility] ASSIGNMENT OF BENEFITS 2022-12-14 23:34:19 Docto r Unassigned, Bejou [facility] MEDICATION CORRESPONDENCE 2022-09-29 06:01:00 Do ctor Unassigned, Bejou [facility] TSH- 2022-09-07 17:10:00 Sima Gordon [facility] THYROXINE (T4) FREE, DIRECT, S- 2022-09-07 17:10:00 Sima Gordon [facility] TRIIODOTHYRONINE (T3)- 2022-09-07 17:10:00 Khadijah Gordon [facility] POCT TEST 2022-06-29 20:57:00 Aspen Perla [facility] ULTRAS[facility] 2022-06-29 05:01:00 Doc tor Unassigned, Bejou [facility] Encounters Start Date/Time End Date/Time Encounter Type Admission Type Attending Clinicians Care Facility Care Department Encounter ID Source 2024-11-26 15:46:02 Outpatient No, PCP CLS [facility] [id number] [facility] 2021-08-28 08:19:33 Outpatient R SIMONA VIDAL [facility] PRATIK [id number] [facility] 2021-08-28 06:06:14 Emergency [facility] [id number] [facility] 2025-07-20 17:00:00 2025-07-20 17:00:00 Urgent Care R ALON LOVELL REPLACED BY [facility] 1.0.114 350.1.13.10 4.2.7.2.686 [id number] [facility] 2025-07-19 09:28:18 2025-07-19 23:59:00 Hospital Encounter Aspen Davenport [facility] 1.0.114 350.1.13.10 4.2.7.2.686 [id number] [facility] 2025-07-19 10:00:00 2025-07-19 10:00:00 Device Engineer Visit ASPEN DAVENPORT VIEN [facility] 1.840.114 350.1.13.10 4.2.7.2.686 [id number] [facility] 2025-07-18 15:00:00 2025-07-18 15:03:17 Office Visit R Aspen Perla [facility] 1.114 350.1.13.10 4.2.7.2.686 [id number] [facility] 2025-07-10 00:00:00 2025-07-14 08:31:57 Patient Secure Msg Tabatha Limon [facility] 1.114 350.1.13.10 4.2.7.2.686 [id number] [facility] 2025-06-19 14:00:00 2025-06-19 15:07:34 Office Visit Kristie LIMON TABATHA [facility] IALTY [facility] 1.114 350.1.13.10 4.2.7.2.686 [id number] [facility] 2025-06-02 10:29:00 2025-06-02 14:28:00 Emergency X MILLIE, MAGNUS MEDINA [facility] ERT [id number] [facility] 2025-06-02 00:00:00 2025-06-02 09:08:56 Aspen Nation [facility] 1.114 350.1.13.10 4.2.7.2.686 [id number] [facility] 2025-05-26 00:00:00 2025-05-29 09:08:32 Maksimill Rekha Bedoya [facility] [place] 1.114 350.1.13.10 4.2.7.2.686 [id number] [facility] 2025-05-23 08:00:00 2025-05-23 08:24:27 Office Visit R Aspen Perla [facility] 1.20.114 350.1.13.10 4.2.7.2.686 [id number] [facility] 2025-05-23 08:00:00 2025-05-23 08:00:00 Outpatient Kristie ASPEN PERLA VIEN [facility] [id number] [facility] 2025-04-04 00:00:00 2025-05-10 18:44:59 Patient Secure Msg Yessy Pablo [facility] 1.2840.114 350.1.13.10 4.2.7.2.686 [id number] [facility] 2025-04-06 00:00:00 2025-05-10 18:42:12 Patient Secure Msg Doctor Unassigned, Bejou Doctor Unassigned, Bejou [facility] 1.20.114 350.1.13.10 4.2.7.2.686 [id number] [facility] 2025-04-09 00:00:00 2025-05-10 18:31:38 Patient Secure Msg Rekha Bedoya [facility] 1.284.114 350.1.13.10 4.2.7.2.686 [id number] [facility] 2025-04-09 00:00:00 2025-05-10 18:30:30 Patient Secure Msg Doctor Unassigned, Bejou Doctor Unassigned, Bejou REPLACED BY [facility] 1.284.114 350.1.13.10 4.2.7.2.686 [id number] [facility] 2025 00:00:00 2025-03-30 03:23:01 Orders Only Rekha Bedoya [facility] 1.2.840.114 350.1.13.10 4.2.7.2.686 [id number] [facility] 2025-03-25 00:00:00 2025-03-25 14:34:46 Patient Secure Msg [facility] 1.2.840.114 350.1.13.10 4.2.7.2.686 [id number] [facility] 2025-03-20 00:00:00 2025-03-20 15:49:34 Patient Secure Msg Rekha Bedoya [facility] 1.2840.114 350.1.13.10 4.2.7.2.686 [id number] [facility] 2025-03-20 00:00:00 2025-03-20 09:07:27 Patient Secure Msg Rekha Bedoya [facility] 1.2840.114 350.1.13.10 4.2.7.2.686 [id number] [facility] 2025-03-19 07:45:00 2025-03-19 08:00:00 Device Engineer Visit R Lab, Ang - Db Mily Bedoyamaryam Auguste Lab, Ang - Db [facility] 1.2840.114 350.1.13.10 4.2.7.2.686 [id number] [facility] 2025-03-18 00:00:00 2025-03-19 07:52:26 Refill Rekha Bedoya [facility] 1.2.840.114 350.1.13.10 4.2.7.2.686 [id number] [facility] 2025-03-19 07:00:00 2025-03-19 07:40:37 Office Visit R ELKE REKHA [facility] 1..840.114 350.1.13.10 4.2.7.2.686 [id number] [facility] 2025-03-14 14:00:00 2025-03-14 15:21:07 Office Visit Tabatha Lee [facility] 1.840.114 350.1.13.10 4.2.7.2.686 [id number] [facility] 2025-03-14 14:00:00 2025-03-14 14:00:00 Outpatient TABATHA LEE [facility] [id number] [facility] 2025-02-14 00:00:00 2025-02-14 00:00:00 Outpatient R ASPEN PERLA VIEN [facility] [id number] [facility] 2025-02-03 00:00:00 2025-02-03 10:48:15 Telephone Kalli Cross [facility] 1..840.114 350.1.13.10 4.2.7.2.686 [id number] [facility] 2025-01-29 10:00:00 2025-01-29 23:59:00 Outpatient R KALLI CROSS [facility] [id number] [facility] 2025-01-29 09:41:03 2025-01-29 23:59:00 Hospital Encounter Kalli Cross [facility] 1..840.114 350.1.13.10 4.2.7.2.686 [id number] [facility] 2025-01-29 00:00:00 2025-01-29 16:42:13 Telephone Kalli Cross [facility] 1.2.840.114 350.1.13.10 4.2.7.2.686 [id number] [facility] 2025-01-07 10:30:00 2025-01-07 11:19:07 Outpatient R KALLI CROSS [facility] [id number] [facility] 2025-01-02 15:01:00 2025-01-02 21:58:00 Emergency X , KALEIGH WEEKS, KALEIGH [facility] ERT [id number] [facility] 2024-06-06 00:00:00 2024-12-14 07:10:08 Orders Only Doctor Unassigned, Bejou Doctor Unassigned, Bejou [facility] 1.2.840.114 350.1.13.10 4.2.7.2.686 [id number] [facility] 2024-12-10 00:00:00 2024-12-11 07:53:41 [facility] 1.2.840.114 350.1.13.10 4.2.7.2.686 [id number] [facility] 2024-10-01 00:00:00 2024-10-02 13:28:59 [facility] 1.2.840.114 350.1.13.10 4.2.7.2.686 [id number] [facility] 2024-09-13 09:00:00 2024-09-13 10:01:11 Outpatient R TABATHA LIMON [facility] [id number] [facility] 2024-09-13 09:00:00 2024-09-13 10:01:11 Office Visit Tabatha Limon [facility] 1.2.840.114 350.1.13.10 4.2.7.2.686 [id number] [facility] 2024-08-19 16:00:00 2024-08-19 16:00:00 Outpatient R ASPEN PERLA VIEN [facility] [id number] [facility] 2024-07-30 00:00:00 2024-08-06 13:03:40 [facility] [place] 1.2.840.114 350.1.13.10 4.2.7.2.686 [id number] [facility] 2024-08-05 00:00:00 2024-08-05 09:28:59 Telephone Tabatha Limon [facility] 1.2.840.114 350.1.13.10 4.2.7.2.686 [id number] [facility] 2024-08-02 12:45:00 2024-08-02 23:59:00 Hospital Encounter Tabatha Limon [facility] 1.2.840.114 350.1.13.10 4.2.7.2.686 [id number] [facility] 2024-08-02 13:00:00 2024-08-02 13:30:00 Office Visit Tabatha Limon [facility] 1.2.840.114 350.1.13.10 4.2.7.2.686 [id number] [facility] 2024-08-02 13:00:00 2024-08-02 13:00:00 Outpatient R TABATHA LIMON [facility] [id number] [facility] 2024-07-29 00:00:00 2024-07-29 12:26:54 [facility] 1.840.114 350.1.13.10 4.2.7.2.686 [id number] [facility] 2024-07-18 15:00:00 2024-07-18 15:40:51 [facility] [id number] [facility] 2024-07-18 15:00:00 2024-07-18 15:40:51 [facility] 1.840.114 350.1.13.10 4.2.7.2.686 [id number] [facility] 2024-07-17 00:00:00 2024-07-17 11:20:19 Telephone Aspen Perla [facility] 1..840.114 350.1.13.10 4.2.7.2.686 [id number] [facility] 2024-07-15 16:00:00 2024-07-15 16:00:00 Outpatient R FELIPA MEDINA [facility] [id number] [facility] 2024-06-18 16:00:00 2024-06-18 16:49:44 Outpatient R ASPEN PERLA VIEN [facility] [id number] [facility] 2024-06-18 16:00:00 2024-06-18 16:49:44 Office Visit Aspen Perla [facility] 1..840.114 350.1.13.10 4.2.7.2.686 [id number] [facility] 2024-06-14 00:00:00 2024-06-17 13:34:44 Patient Secure Msg Doctor Unassigned, Bejou Doctor Unassigned, Bejou [facility] 1..840.114 350.1.13.10 4.2.7.2.686 [id number] [facility] 2024-06-15 14:30:52 2024-06-15 23:59:00 Outpatient R KIA DOS SANTOS [facility] [id number] [facility] 2024-06-15 14:30:52 2024-06-15 23:59:00 Hospital Encounter Kia Dos Santos [facility] 1.2.840.114 350.1.13.10 4.2.7.2.686 [id number] [facility] 2024-06-15 14:30:21 2024-06-15 23:59:00 Hospital Encounter Kia Dos Santos [facility] 1.2.840.114 350.1.13.10 4.2.7.2.686 [id number] [facility] 2024-06-12 15:57:38 2024-06-12 23:59:00 Outpatient R ASPEN PERLA VIEN [facility] [id number] [facility] 2024-06-12 15:57:38 2024-06-12 23:59:00 Hospital Encounter Aspen Perla [facility] 1.2.840.114 350.1.13.10 4.2.7.2.686 [id number] [facility] 2024-06-06 00:00:00 2024-06-07 09:13:31 Telephone Rekha Bedoya REPLACED BY [facility] 1.2.840.114 350.1.13.10 4.2.7.2.686 [id number] [facility] 2024-06-06 11:20:00 2024-06-06 11:20:00 Office Visit Kia Dos Santos [facility] 1.2.840.114 350.1.13.10 4.2.7.2.686 [id number] [facility] 2024-06-06 11:20:00 2024-06-06 11:15:39 Outpatient R [facility] [id number] [facility] 2024-06-06 10:45:00 2024-06-06 11:00:00 Device Engineer Visit Lab, [facility] Aspen Perla Lab, [facility] 1.2.840.114 350.1.13.10 4.2.7.2.686 [id number] [facility] 2024-06-05 00:00:00 2024-06-05 14:32:41 [facility] 1.2.840.114 350.1.13.10 4.2.7.2.686 [id number] [facility] 2024-06-04 00:00:00 2024-06-04 16:48:16 Patient Secure Msg Doctor Unassigned, Bejou Doctor Unassigned, Bejou [facility] 1.2.840.114 350.1.13.10 4.2.7.2.686 [id number] [facility] 2024-06-03 00:00:00 2024-06-03 15:03:37 Case Management Aspen Perla [facility] 1.2.840.114 350.1.13.10 4.2.7.2.686 [id number] [facility] 2024-05-31 00:00:00 2024-05-31 16:37:25 Telephone Aspen Perla [facility] 1.2.840.114 350.1.13.10 4.2.7.2.686 [id number] [facility] 2024-05-28 00:00:00 2024-05-29 16:31:11 Patient Secure Msg Aspen Perla [facility] 1.2.840.114 350.1.13.10 4.2.7.2.686 [id number] [facility] 2024-05-26 10:47:33 2024-05-26 23:59:00 Outpatient R ASPEN PERLA [facility] [id number] [facility] 2024-05-26 10:47:33 2024-05-26 23:59:00 Hospital Encounter Aspen Perla [facility] 1.2.840.114 350.1.13.10 4.2.7.2.686 [id number] [facility] 2024-05-15 00:00:00 2024-05-22 11:08:43 Patient Secure Msg Rekha Bedoya [facility] 1.2.840.114 350.1.13.10 4.2.7.2.686 [id number] [facility] 2024-05-20 15:30:00 2024-05-20 15:43:12 Outpatient R ASPEN PERLA [facility] [id number] [facility] 2024-05-20 15:30:00 2024-05-20 15:43:12 Office Visit Aspen Perla [facility] 1.2.840.114 350.1.13.10 4.2.7.2.686 [id number] [facility] 2024-05-07 15:00:00 2024-05-07 15:00:00 Outpatient R BRAVO PERLAEN [facility] [id number] [facility] 2024-04-24 00:00:00 2024-04-24 07:35:01 Refill Rekha Bedoya [facility] 1.840.114 350.1.13.10 4.2.7.2.686 [id number] [facility] 2024-04-24 00:00:00 2024-04-24 07:32:53 Refill Aleja Cunha [facility] 1.2840.114 350.1.13.10 4.2.7.2.686 [id number] [facility] 2024-04-16 00:00:00 2024-04-19 10:21:06 Refill Rekha Bedoya [facility] BY [facility] 1.0.114 350.1.13.10 4.2.7.2.686 [id number] [facility] 2024-03-02 00:00:00 2024-04-06 18:02:59 Patient Secure Msg Doctor Unassigned, Bejou [facility] 1.0.114 350.1.13.10 4.2.7.2.686 [id number] [facility] 2024-03-28 18:20:00 2024-03-28 19:09:06 Outpatient R ALEJA CUNHA [facility] [id number] [facility] 2024-03-28 18:20:00 2024-03-28 19:09:06 Urgent Care Aleja Cunha Unknown, Attending REPLACED BY [facility] 1.2840.114 350.1.13.10 4.2.7.2.686 [id number] [facility] 2024-03-28 00:00:00 2024-03-28 09:39:13 Letter (Out) [facility] 1.20.114 350.1.13.10 4.2.7.2.686 [id number] [facility] 2024-03-27 00:00:00 2024-03-27 11:24:21 Letter (Out) [facility] 1.2.840.114 350.1.13.10 4.2.7.2.686 [id number] [facility] 2024-03-18 15:16:32 2024-03-18 23:59:00 Hospital Encounter Flower Miller [facility] 1.2.840.114 350.1.13.10 4.2.7.2.686 [id number] [facility] 2024-03-18 10:00:00 2024-03-18 10:20:00 Office Visit Kia Dos Santos [facility] 1.2840.114 350.1.13.10 4.2.7.2.686 [id number] [facility] 2024-03-18 10:00:00 2024-03-18 10:10:06 Outpatient R [facility] [id number] [facility] 2024-03-18 10:00:00 2024-03-18 10:00:00 Outpatient R KIA DOS SANTOS [facility] [id number] [facility] 2024-03-12 14:47:26 2024-03-12 23:59:00 Hospital Encounter ElkeRekha [facility] 1.2840.114 350.1.13.10 4.2.7.2.686 [id number] [facility] 2024-03-12 16:00:00 2024-03-12 16:24:24 Outpatient R ANGELAFLOWER [facility] [id number] [facility] 2024-03-12 16:00:00 2024-03-12 16:24:24 Office Visit [facility]ery [facility] 1.2840.114 350.1.13.10 4.2.7.2.686 [id number] [facility] 2024-03-12 00:00:00 2024-03-12 15:41:49 Patient Secure Msg Rekha Bedoya [facility] OFFICE BUILD[facility] 1.2840.114 350.1.13.10 4.2.7.2.686 [id number] [id number] [facility] 2024-03-06 00:00:00 2024-03-06 14:31:08 Patient Secure Msg Doctor Unassigned, Bejou REPLACED BY [facility] 1.284.114 350.1.13.10 4.2.7.2.686 [id number] [id number] [facility] 2024-03-02 08:00:00 2024-03-02 08:15:00 Device Engineer Visit Pob, Adc Lab Main Willis Bedoyalie Molina [facility] BUILDING 1..840.114 350.1.13.10 4.2.7.2.686 [id number] [facility] 2024-03-02 08:00:00 2024-03-02 08:00:00 Outpatient R REKHA BEDOYA [facility] [id number] [facility] 2024-03-01 15:00:00 2024-03-01 15:15:00 Device Engineer Visit Lab, Ang - Db ElkeMily mcduffiee Molina [facility] OFFICE BUILDING 1..840.114 350.1.13.10 4.2.7.2.686 [id number] [facility] 2024-03-01 14:30:00 2024-03-01 14:43:54 Outpatient R REKHA BEDOYA [facility] [id number] [facility] 2024-03-01 14:30:00 2024-03-01 14:43:54 Office Visit Rekha Bedoya [facility] 1.20.114 350.1.13.10 4.2.7.2.686 [id number] [id number] [facility] 2024-03-01 14:00:00 2024-03-01 14:43:47 Office Visit Rekha Bedoya [facility] MED[facility] OFFICE BUILDING 1.20.114 350.1.13.10 4.2.7.2.686 [id number] [facility] 2024-02-24 00:00:00 2024-02-24 00:00:00 Refill Rekha Bedoya [facility] 1.114 350.1.13.10 4.2.7.2.686 [id number] [id number] [facility] 2023-06-16 14:36:53 2023-06-16 23:59:00 Outpatient R BRAVO PERLAEN [facility] [id number] [facility] 2023-06-16 14:36:53 2023-06-16 23:59:00 Hospital Encounter Aspen Perla [facility] 1.114 350.1.13.10 4.2.7.2.686 [id number] [facility] 2023-06-16 00:00:00 2023-06-16 00:00:00 Orders Only Doctor Unassigned, Bejou [facility] 1..114 350.1.13.10 4.2.7.2.686 [id number] [facility] 2023-05-04 15:00:00 2023-05-04 15:12:59 [facility] 1..114 350.1.13.10 4.2.7.2.686 [id number] [facility] 2023-05-04 15:00:00 2023-05-04 15:12:59 Outpatient R ASPEN PERLA [facility] [id number] [facility] 2023-04-26 11:30:00 2023-04-26 12:00:00 Office Visit Rose Metzger [facility] NAL BUILDING 1.840.114 350.1.13.10 4.2.7.2.686 [id number] [facility] 2023-04-26 11:30:00 2023-04-26 11:30:00 Outpatient R ROSE METZGER STRAWAMiryam [facility] [id number] [facility] 2023-03-01 16:00:00 2023-03-01 16:30:00 Office Visit Rose Metzger [facility] BUILDING 1.840.114 350.1.13.10 4.2.7.2.686 [id number] [facility] 2023-03-01 16:00:00 2023-03-01 16:00:00 Outpatient R ROSE METZGER STRAWAMiryam [facility] [id number] [facility] 2023-03-01 00:00:00 2023-03-01 00:00:00 Telephone Rose Metzger [facility] 1.84.114 350.1.13.10 4.2.7.2.686 [id number] [id number] [facility] 2023-03-01 00:00:00 2023-03-01 00:00:00 Telephone Liv Gordon [facility] 1.840.114 350.1.13.10 4.2.7.2.686 [id number] [facility] 2023-03-01 00:00:00 2023-03-01 00:00:00 Orders Only Doctor Unassigned, Bejou [facility] 1.2840.114 350.1.13.10 4.2.7.2.686 [id number] [facility] 2023-02-01 13:00:00 2023-02-01 13:00:00 Outpatient R GLADISDIDIJERRY [facility] [id number] [facility] 2023-01-16 00:00:00 2023-01-16 00:00:00 Patient Secure Msg Doctor Unassigned, Bejou [facility] 1.20.114 350.1.13.10 4.2.7.2.686 [id number] [facility] 2023-01-12 16:00:00 2023-01-12 16:27:16 Outpatient R REKHA BEDOYA [facility] [id number] [facility] 2023-01-12 16:00:00 2023-01-12 16:27:16 Office Visit Rekha Bedoya REPLACED BY [facility]?IN[facility]S [facility] MEDICAL OFFICE BUILDING 1..114 350.1.13.10 4.2.7.2.686 [id number] [id number] [facility] 2023-01-12 00:00:00 2023-01-12 00:00:00 Telephone Rose Metzger [facility] 1..114 350.1.13.10 4.2.7.2.686 [id number] [facility] 2023-01-12 00:00:00 2023-01-12 00:00:00 Telephone Liv Gordon REPLACED BY [facility] 1..114 350.1.13.10 4.2.7.2.686 [id number] [facility] 2022-12-15 14:00:00 2022-12-15 14:44:11 Outpatient R REKHA BEDOYA [facility] [id number] [facility] 2022-12-15 14:00:00 2022-12-15 14:44:11 Office Visit Rekha Bedoya [facility] 1.284.114 350.1.13.10 4.2.7.2.686 [id number] [id number] [facility] 2022-12-15 00:00:00 2022-12-15 00:00:00 Telephone Liv Gordon [facility] 1.84.114 350.1.13.10 4.2.7.2.686 [id number] [facility] 2022-12-14 18:19:00 2022-12-14 23:23:00 Emergency X DAVEY BARTOLO [facility] ERT [id number] [facility] 2022-12-14 18:19:00 2022-12-14 23:23:00 Emergency Bartolo Mayfield F [facility] 1.84.114 350.1.13.10 4.2.7.2.686 [id number] [facility] 2022-12-14 17:45:00 2022-12-14 17:45:00 Nurse Visit Nurse, Alejandro Dominguez [facility] Unknown, Attending REPLACED BY [facility] 1.84.114 350.1.13.10 4.2.7.2.686 [id number] [facility] 2022-12-14 17:45:00 2022-12-14 17:43:54 Outpatient R ERNESTO TOLBERT III [facility] [id number] [facility] 2022-12-14 00:00:00 2022-12-14 00:00:00 Orders Only Doctor Unassigned, Bejou [facility] 1.2.840.114 350.1.13.10 4.2.7.2.686 [id number] [facility] 2022-11-09 00:00:00 2022-11-09 00:00:00 Refill Ernesto Schofield [facility] 1.2840.114 350.1.13.10 4.2.7.2.686 [id number] 044 [id number] [facility] 2022-10-12 00:00:00 2022-10-12 00:00:00 Refill ElkeRekha [facility] 1.2840.114 350.1.13.10 4.2.7.2.686 [id number] 044 [id number] [facility] 2022-10-05 00:00:00 2022-10-05 00:00:00 Telephone Liv Gordon [facility] 1.2840.114 350.1.13.10 4.2.7.2.686 [id number] [facility] 2022-09-29 00:00:00 2022-09-29 00:00:00 Orders Only Doctor Unassigned, Bejou [facility] 1.2840.114 350.1.13.10 4.2.7.2.686 [id number] [facility] 2022-09-09 00:00:00 2022-09-09 00:00:00 Refill Rekha Bedoya [facility] 1.2840.114 350.1.13.10 4.2.7.2.686 [id number] [id number] [facility] 2022-09-07 00:00:00 2022-09-07 00:00:00 Orders Only Sima Gordon [facility] 1.84.114 350.1.13.10 4.2.7.2.686 [id number] [facility] 2022-09-06 16:00:00 2022-09-06 16:43:40 Outpatient R EVAN [facility] [id number] [facility] 2022-09-06 16:00:00 2022-09-06 16:43:40 [facility] 1.84.114 350.1.13.10 4.2.7.2.686 [id number] [facility] 2022-09-06 16:00:00 2022-09-06 16:00:00 Outpatient R GORDON [facility] [id number] [facility] 2022-09-06 00:00:00 2022-09-06 00:00:00 Telephone [facility] 1.84.114 350.1.13.10 4.2.7.2.686 [id number] [facility] 2022-08-28 00:00:00 2022-08-28 00:00:00 Refill [facility]ekha [facility] 1.284.114 350.1.13.10 4.2.7.2.686 [id number] 044 [id number] [facility] 2022-08-10 00:00:00 2022-08-10 00:00:00 Refill Tiffany Arango [facility] 1.84.114 350.1.13.10 4.2.7.2.686 [id number] [id number] [facility] 2022-08-01 15:30:00 2022-08-01 15:52:06 Outpatient R ASPEN PERLA [facility] [id number] [facility] 2022-08-01 15:30:00 2022-08-01 15:52:06 Office Visit Aspen Perla [facility] 1.2.840.114 350.1.13.10 4.2.7.2.686 [id number] [facility] 2022-06-29 15:30:00 2022-06-29 16:27:33 Outpatient R ASPEN PERLA [facility] [id number] [facility] 2022-06-29 15:30:00 2022-06-29 16:27:33 Office Visit Aspen Perla [facility] BUILDING 1.2.840.114 350.1.13.10 4.2.7.2.686 [id number] [facility] 2022-06-29 00:00:00 2022-06-29 00:00:00 Orders Only Doctor Unassigned, Bejou [facility] 1.2840.114 350.1.13.10 4.2.7.2.686 [id number] [facility] 2022-05-26 15:15:21 2022-05-26 23:59:00 Outpatient R ASPEN PERLA [facility] [id number] [facility] 2022-05-26 15:00:00 2022-05-26 23:59:00 Hospital Encounter Aspen Perla [facility] 1.84.114 350.1.13.10 4.2.7.2.686 [id number] [facility] 2022-05-26 14:30:00 2022-05-26 15:01:25 [facility] [id number] [facility] 2022-05-26 14:30:00 2022-05-26 15:01:25 Office Visit [facility] 1.2.840.114 350.1.13.10 4.2.7.2.686 [id number] [facility] 2022-05-26 14:30:00 2022-05-26 14:30:00 Outpatient R ASPEN PRELA [facility] [id number] [facility] 2022-05-25 00:00:00 2022-05-25 00:00:00 Refill Rekha Bedoya REPLACED BY [facility] 1.2.840.114 350.1.13.10 4.2.7.2.686 [id number] [id number] [facility] 2022-05-12 00:00:00 2022-05-12 00:00:00 Patient Secure Liv Martinez REPLACED BY [facility] 1.2.840.114 350.1.13.10 4.2.7.2.686 [id number] [facility] 2022-05-09 15:15:00 2022-05-09 16:21:35 Outpatient R ASPEN PERLA [facility] [id number] [facility] 2022-05-09 15:15:00 2022-05-09 16:21:35 Office Visit Aspen Perla [facility] BUILDING 1.2.840.114 350.1.13.10 4.2.7.2.686 [id number] [facility] 2022-05-09 15:15:00 2022-05-09 16:21:35 Outpatient R ASPEN PERLA [facility] [id number] [facility] 2022-05-09 15:15:00 2022-05-09 16:21:35 Outpatient [facility] [id number] [facility] 2022-04-15 13:15:00 2022-04-15 13:30:00 Device Engineer Visit Lab, Alejandro - Rekha Carter [facility] 1.2.840.114 350.1.13.10 4.2.7.2.686 [id number] [facility] 2022-04-15 13:15:00 2022-04-15 13:15:00 Outpatient R REKHA BEDOYA [facility] [id number] [facility] 2022-04-08 08:00:39 2022-04-08 23:59:00 Outpatient R EVAN [facility] [id number] [facility] 2022-04-08 08:00:00 2022-04-08 23:59:00 Hospital Encounter Evan [facility] 1.2.840.114 350.1.13.10 4.2.7.2.686 [id number] [facility] 2022-04-08 00:00:00 2022-04-08 00:00:00 Outpatient R EVAN LIV [facility] [id number] [facility] 2022-04-07 13:15:00 2022-04-07 14:03:44 Office Visit Aspen Perla [facility] NAL BUILDING 1.2.840.114 350.1.13.10 4.2.7.2.686 [id number] [facility] 2022-04-07 13:15:00 2022-04-07 14:03:44 Outpatient R ASPEN PERLA [facility] [id number] [facility] 2022-04-07 13:15:00 2022-04-07 13:15:00 Outpatient R ASPEN PERLA [facility] [id number] [facility] 2022-04-05 00:00:00 2022-04-05 00:00:00 Patient Secure Msg Aspen Perla [facility] BUILDING 1.840.114 350.1.13.10 4.2.7.2.686 [id number] [facility] 2022-04-05 00:00:00 2022-04-05 00:00:00 Telephone Aspen Perla [facility] BUILDING 1.840.114 350.1.13.10 4.2.7.2.686 [id number] [facility] 2022-03-30 08:00:00 2022-03-30 08:00:00 Outpatient R [facility] [id number] [facility] 2022-03-30 00:00:00 2022-03-30 00:00:00 Patient Secure Msg Evan [facility] 1.840.114 350.1.13.10 4.2.7.2.686 [id number] [facility] 2022 16:00:00 2022 16:20:10 Outpatient R GORDON [facility] [id number] [facility] 2022 16:00:00 2022 16:15:00 Device Engineer Visit Lab, Ang - Db Evan [facility]?IN[facility] MEDICAL OFFICE BUILDING 1.840.114 350.1.13.10 4.2.7.2.686 [id number] [facility] 2022 15:30:00 2022 16:05:22 Outpatient R GORDON [facility] [id number] [facility] 2022 15:30:00 2022 16:05:[address] [facility] 1.840.114 350.1.13.10 4.2.7.2.686 [id number] [facility] 2022-03-24 00:00:00 2022-03-24 00:00:00 Patient Secure Msg Marika Borjas REPLACED BY [facility]?IN[facility]S [facility] MEDICAL OFFICE BUILDING 1..114 350.1.13.10 4.2.7.2.686 [id number] 044 [id number] [facility] 2022-03-22 15:45:00 2022-03-22 16:07:33 Office Visit Aleja Cunha [facility] 1.114 350.1.13.10 4.2.7.2.686 [id number] [facility] 2022-03-22 15:45:00 2022-03-22 16:07:33 Outpatient R [facility] [id number] [facility] 2022-03-22 15:45:00 2022-03-22 15:45:00 Outpatient R [facility] [id number] [facility] 2022-03-07 00:00:00 2022-03-07 00:00:00 Patient Secure Msg Doctor Unassigned, Bejou [facility] 1.114 350.1.13.10 4.2.7.2.686 [id number] [facility] 2022-02-24 00:00:00 2022-02-24 00:00:00 Telephone Rekha Bedoya REPLACED BY [facility] 1.114 350.1.13.10 4.2.7.2.686 [id number] 044 [id number] [facility] 2022-02-22 08:00:00 2022-02-22 08:15:00 Device Engineer Visit [facility] Sleep Lab Rose Metzger [facility] 1..114 350.1.13.10 4.2.7.2.686 [id number] [facility] 2022-02-22 08:00:00 2022-02-22 08:00:00 Outpatient Kristie METZGER, ROSE SEBASTIAN [facility] [id number] [facility] 2022-02-22 00:00:00 2022-02-22 00:00:00 Patient Secure Msg Doctor Unassigned, Bejou [facility] 1.2840.114 350.1.13.10 4.2.7.2.686 [id number] [facility] 2022-02-22 00:00:00 2022-02-22 00:00:00 Orders Only Doctor Unassigned, Bejou [facility] 1.2840.114 350.1.13.10 4.2.7.2.686 [id number] [facility] 2022-02-21 00:00:00 2022-02-21 00:00:00 Patient Secure Msg ElkeRekha [facility] 1.2840.114 350.1.13.10 4.2.7.2.686 [id number] 044 [id number] [facility] 2022-02-20 00:00:00 2022-02-20 00:00:00 Telephone Rekha Bedoya A [facility] 1.2840.114 350.1.13.10 4.2.7.2.686 [id number] 044 [id number] [facility] 2022-02-20 00:00:00 2022-02-20 00:00:00 Refill Tiffany Arango A [facility] 1.2840.114 350.1.13.10 4.2.7.2.686 [id number] 044 [id number] [facility] 2022-02-17 07:30:00 2022-02-17 07:45:00 Device Engineer Visit Lab, Ang - Db Rekha Bedoya [facility]?IN[facility]S [facility] MEDICAL OFFICE BUILDING 1.2.840.114 350.1.13.10 4.2.7.2.686 [id number] [facility] 2022-02-17 07:30:00 2022-02-17 07:30:00 Outpatient R REKHA BEDOYA [facility] [id number] [facility] 2022-02-17 07:30:00 2022-02-17 07:30:00 Outpatient R REKHA BEDOYA [facility] [id number] [facility] 2022-02-16 08:00:00 2022-02-16 08:51:57 Outpatient R WILLIS BEDOYALIE [facility] [id number] [facility] 2022-02-16 08:00:00 2022-02-16 08:51:57 Office Visit Rekha Bedoya [facility]IN[facility] MEDICAL OFFICE BUILDING 1.2.840.114 350.1.13.10 4.2.7.2.686 [id number] [facility] 2022-01-13 00:00:00 2022-01-13 00:00:00 Orders Only Doctor Unassigned, Bejou [place] [address].840.114 350.1.13.10 4.2.7.2.686 [id number] [facility] 2021-12-14 00:00:00 2021-12-14 00:00:00 Patient Secure Msg Doctor Unassigned, Bejou [place] [address]..840.114 350.1.13.10 4.2.7.2.686 [id number] 019 [id number] [facility] 2021-12-14 00:00:00 2021-12-14 00:00:00 Patient Secure Msg Doctor Unassigned, Bejou [facility] .114 350.1.13.10 4.2.7.2.686 [id number] [id number] [facility] 2021-12-10 12:00:00 2021-12-10 12:15:00 Device Engineer Visit Lab, Ang - Db AdrianaTipphylicia Molina [facility]?DANIELMolina [facility] 1.114 350.1.13.10 4.2.7.2.686 [id number] [facility] 2021-12-10 12:00:00 2021-12-10 12:00:00 Outpatient R TIFFANY ARANGO [facility] [id number] [facility] 2021-12-10 10:45:00 2021-12-10 11:25:17 Office Visit Tiffany Arango [facility]?DANIELMolina [facility] OFF[facility] BU[facility] 1.114 350.1.13.10 4.2.7.2.686 [id number] [facility] 2021-12-10 10:45:00 2021-12-10 11:25:17 Outpatient R TIFFANY ARANGO [facility] [id number] [facility] 2021-12-10 10:45:00 2021-12-10 11:25:17 Outpatient R TIFFANY ARANGO [facility] [id number] [facility] 2021-12-10 00:00:00 2021-12-10 00:00:00 Orders Only Doctor Unassigned, Bejou [facility] 1.114 350.1.13.10 4.2.7.2.686 [id number] [facility] 2021-10-18 00:00:00 2021-10-18 00:00:00 Refill Tiffany Arango [facility] OFF[facility] BUILD[facility] ONE .114 350.1.13.10 4.2.7.2.686 [id number] [facility] 2021-07-02 00:00:00 2021-07-02 00:00:00 Cher Luxora Tipphylicia [facility] Office Building One 1.2.840.114 350.1.13.10 4.2.7.2.686 [id number] [facility] 2021-05-07 09:30:00 2021-05-07 09:30:00 Outpatient R TIP ARANGOJANY [facility] [id number] [facility] 2021-04-27 15:45:00 2021-04-27 15:45:00 Outpatient R ALEJA CUNHA [facility] [id number] [facility] 2020-11-06 10:30:00 2020-11-06 10:30:00 Outpatient TIFFANY RAINES [facility] [id number] [facility] 2020-10-19 00:00:00 2020-10-19 00:00:00 Patient Secure Msg Simona Vidal [facility] BUILDING 1.2.840.114 350.1.13.10 4.2.7.2.686 [id number] [facility] 2020-10-16 00:00:00 2020-10-16 00:00:00 Patient Secure Msg Doctor Unassigned, Bejou [facility] BUILDING 1..840.114 350.1.13.10 4.2.7.2.686 [id number] [facility] 2020-10-13 14:15:00 2020-10-13 14:15:00 Outpatient R SIMONA VIDAL [facility] [id number] [facility] 2020-10-09 09:00:00 2020-10-09 09:00:00 Outpatient R DALE PADRON [facility] [id number] [facility] 2020-10-01 14:15:00 2020-10-01 14:15:00 Outpatient R KRISTALAMARJITEL [facility] [id number] [facility] 2020-09-18 16:15:00 2020-09-18 16:15:00 Outpatient R TIFFANY ARANGO [facility] [id number] [facility] 2020-09-17 11:00:00 2020-09-17 11:00:00 Outpatient R SIMONA VIDAL [facility] [id number] [facility] 2020-07-17 14:00:00 2020-07-17 14:00:00 Outpatient R DALE PADRON [facility] [id number] [facility] 2020-06-05 00:00:00 2020-06-05 00:00:00 Patient Secure Msg Doctor Unassigned, Bejou [facility] [employer] [facility] 1.2.840.114 350.1.13.10 4.2.7.2.686 [id number] [facility] 2020-06-04 11:15:00 2020-06-04 11:15:00 Outpatient R TIFFANY ARANGO [facility] [id number] [facility] 2020-05-08 09:00:00 2020-05-08 09:00:00 Outpatient R TIFFANY ARANGO [facility] [id number] [facility] 2020-05-08 08:00:00 2020-05-08 08:00:00 Outpatient R TIFFANY ARANGO [facility] [id number] [facility] 2020-05-07 15:45:00 2020-05-07 15:45:00 Outpatient R TIFFANY ARANGO [facility] [id number] [facility] 2020-05-07 15:45:00 2020-05-07 15:45:00 Outpatient R TIFFANY ARANGO [facility] [id number] [facility] [facility] 2020[facility]27 15:30:00 2020-04-27 15:30:00 Outpatient R [facility] [id number] [facility] Results Test Description Test Time Test Comments Results Result Co mments Source [facility] [id number] 16:40:48* Test Item Value Reference Range Interpretation Comme nts TROPONIN I (test code = 0937515571) 0.001 ng/mL <=0.034 HEAVEN (test code = HEAVEN) [...] of biotin. Lab Interpretation (test code = 28154-4) Normal [facility] Vtl-[id number] 16:38:09* Test Item Value Reference Range Interpretation Comme nts NT-proBNP (test code = 38151-0) 43 pg/mL <=125 Lab Interpretation (test cod e = 04109-7) Normal [facility]CMP[facility]25-[facility] 16:29:05* Test Item Value Reference Range Interpretation Comme nts NA (test code = 7792365632) 135 mmol/L 135-145 K (test code = 9619088935) 4.2 mmol/L 3.5-5.0 CL (test code = 4237556395) 103 mmol/L 98-108 CO2 TOTAL (test code = 7864145149) 24 mmol/L 23-31 AGAP (test code = 7967160484) 8 2-16 BUN (test code = 8742462102) 13 mg/dL 7-23 GLUCOSE (test code = 5014876736) 89 mg/dL 70-110 CREATININE (test code = 2160-0) 0.83 mg/dL 0.50-1.04 TOTAL BILI (test code = 9803943114) 0.7 mg/dL 0.1-1.1 CALCIUM (test code = 1122245587) 8.9 mg/dL 8.6-10.6 T PROTEIN (test code = 1146819149) 6.9 g/dL 6.3-8.2 ALBUMIN (test code = 0605389957) 4.2 g/dL 3.5-5.0 ALK PHOS (test code = 4956473440) 67 U/L 34-122 ALTv (test code = 1742-6) 17 U/L 5-35 AST(SGOT) (test code = 3636147618) 22 U/L 13-40 eGFR (test code = 72309-4) 90.4 mL/min/1.73m2 CKD-EPI eGFR (20 21). Assuming creatinine has been stable day-to-day for at least three months, the eGFR indicates Category G1 (>= 90 mL/min/1.73 m2) [facility] with [id number] 16:20:06* Test Item Value Reference Range Interpretation Comme nts WBC (test code = 6690-2) 6.7 4.30-11.10 RBC (test code = 789-8) 4.36 3.93-5.25 HGB (test code = 718-7) 13.6 g/dL 11.6-15.0 HCT (test code = 4544-3) 40.8 % 35.7-45.2 MCV (test code = 787-2) 93.6 fL 80.6-95.5 MCH (test code = 785-6) 31.2 pg 25.9-32.8 MCHC (test code = 786-4) 33.3 g/dL 31.6-35.1 RDW-SD (test code = 85781-8) 43.4 fL 39.0-49.9 RDW-CV (test code = 788-0) 12.6 % 12.0-15.5 PLT (test code = 777-3) 249 166-358 MPV (test code = 13890-6) 11.2 fL 9.5-12.9 NRBC/100 WBC (test code = 1950790460) 0 0.0-10.0 NRBC x10^3 (test code = 7455852375) See_Comment [Automated me ssage] The system which generated this result transmitted reference range: 10*3/?L. The reference range was not used to interpret this result as normal/abnormal. GRAN MAT (NEUT) % (test code = 770-8) 67.5 % IMM GRAN % (test code = 2093181660) 0.6 % LYMPH % (test code = 736-9) 22.5 % MONO % (test code = 5905-5) 8.1 % EOS % (test code = 713-8) 0.9 % BASO % (test code = 706-2) 0.4 % GRAN MAT x10^3(ANC) (test code = 5340708484) 4.52 10*3/uL 1.88-7.09 IMM GRAN x10^3 (test code = 2168681282) 0.04 10*3/uL 0.00-0.06 LYMPH x10^3 (test code = 731-0) 1.51 10*3/uL 1.32-3.29 MONO x10^3 (test code = 742-7) 0.54 10*3/uL 0.33-0.92 EOS x10^3 (test code = 711-2) 0.06 10*3/uL 0.03-0.39 BASO x10^3 (test code = 704-7) 0.03 10*3/uL 0.01-0.07 [facility] HospitalT-4, [id number] 08:00:00* Test Item Value Reference Range Interpretation Comme nts T-4, FREE-Q (test code = 3024-7) 1.3 ng/dL 0.8-1.8 HEAVEN (test code = HEAVEN) PERFORMED BY [employer]; [address] [place] [address]; ARLEEN ULRICH MD [facility] HospitalT3, [id number] 08:00:00* Test Item Value Reference Range Interpretation Comme nts T3, FREE-Q (test code = 3051-0) 3.0 pg/mL 2.3-4.2 REPORT COMMENT:FASTING:YE S HEAVEN (test code = HEAVEN) PERFORMED BY [employer]; [address] [place] [address]; ARLEEN ULRICH MD [facility] BranchEchocardiogram dobutamine stress test 2025-01-29 17:53:07* Test Item Value Reference Range Interpretation Comme nts Height (test code = 0711481660) 61 in Weight (test code = 0873951181) 191 lbs Systolic BP (test code = 3585131793) 121 mmHg Diastolic BP (test code = 2091017477) 79 mmHg Heart Rate (test code = 4591377054) 75 bpm BSA (test code = 8027095530) 1.[address] Depresion (mm) (test code = 6959235895) 0 mm Radiology Study observation (narrative) (test code = 04474-8) HEAVEN (test code = HEAVEN) Table formatting from the original result was not included. ?Post-stress?Impression: Adequate hemodynamic response, adequate chronotropic response and negative stress echocardiography study for inducible ischemia. ?Post-stress: The post-stress echo shows appropriate increased thickness to all myocardial segments, increased ejection fraction 65-70 and no wall motion abnormalities noted. ?Stress?ECG: The ECG was negative for ischemia. ?Left?Ventricle: Left ventricle is normal in size and function. Normal wall thickness. No regional wall motion abnormalities. Normal systolic function with a visually estimated EF of 55 - 60%. Normal diastolic function. I, Jasper Ferrell MD was immediately available for ?the entire procedure(s). Stress ResultsProtocol: DSE Maximum Predicted HR: 179 Target HR: 152 % Maximum Predicted HR: 86 Stage Duration (mm:ss) Heart Rate (bpm) BP Dose Comment Baseline ?74 121/79 ?Optison Peak 7:59 155 148/82 20 mcg/kg/min ?Recovery 4 4:00 77 123/81 ? ?Recovery 10 10:00 73 117/77 ? ?Add'l Recovery ?Stress Duration: 7:59 Recovery Time: 11:03 Maximum Stress HR: 155 ? Left VentricleLeft ventricle is normal in size and function. Normal wall thickness. No regional wall motion abnormalities. Normal systolic function with a visually estimated EF of 55 - 60%. Normal diastolic function.Right VentricleRight ventricle is normal in size and function.Left AtriumLeft atrium size is normal.Right AtriumRight atrium size is normal.Mitral ValveMitral valve is normal in structure and function. Trace transvalvular regurgitation. No stenosis.Tricuspid ValveTricuspid valve is grossly normal size and function. Trace transvalvular regurgitation. Right ventricular systolic pressure is 15-20 mmHg. RA pressure is 0-5 mmHg. No stenosis.Aortic ValveAortic valve opens well.Pulmonic ValveNot well visualized.Ascending AortaNormal sized ascending aorta.PericardiumNo pericardial effusion.Study DetailsStudy quality experienced technical difficulty. A Dobutamine stress echocardiogram was performed using 2D, color flow Doppler and spectral Doppler. 3 mL of Optison ultrasound enhancing agent used. Lenore Gallo RNResting ECGNormal sinus rhythm. Resting ECG shows no ST-segment deviation.Stress FindingsA pharmacological stress test was performed using dobutamine. The patient reported no symptoms during the stress test. Blood pressure demonstrated a normal response and heart rate demonstrated a normal response to stress. The patient's heart rate recovery was normal.Stress ECGSinus tachycardia. No significant ST depression.There were no arrhythmias during stress. There were no arrhythmias during recovery. The ECG was negative for ischemia.Echo Post StressThe post-stress echo shows appropriate increased thickness to all myocardial segments, increased ejection fraction 65-70 and no wall motion abnormalities noted.Study ImpressionAdequate hemodynamic response, adequate chronotropic response and negative stress echocardiography study for inducible ischemia. [facility] HospitalFL TIME OR (NON-REPORTABLE)2024-08-02 19:12:16 These images do not require a Radiology diagnostic report.[facility] HospitalRADIOLOGY [id number] 22:22:36Ordered by an unspecified provider.[facility] Urinalysis w/o Specific Tqcphke2848-22-57 20:40:00* Test Item Value Reference Range Interpretation Comme nts POCT PH U (test code = 3254) 6 mg/dl 5-8 POCT U LEUK EST (test code = 3263) negative Negative - Negative POCT U NIT (test code = 3262) negative Negative - Negati ve POCT U PROT (test code = 3259) negative Negative - Negat segun POCT U GLU (test code = 3256) negative Negative - Negati ve POCT U KETONE (test code = 3258) negative Negative - Neg ative POCT U BLD (test code = 3257) negative Negative - Negati ve [facility] SARS-COV-2 ANTIGEN (BINAX NOW)2024 00:14:00* Test Item Value Reference Range Interpretation Comme nts POCT SARS-COV-2 ANTIGEN (test code = 89629-0) Not Detected Not Detected On board controls acceptable with C Line (test code = 3574) Yes HEAVEN (test code = HEAVEN) accurate developme nt and interpretation of all internal controls Lab Interpretation (test code = 10572-1) Normal [facility] MOLECULAR [id number] 23:46:42* Test Item Value Reference Range Interpretation Comme nts POCT Molecular Strep (test c ode = 31717-8) Negative Negative Lab Interpretation (test cod e = 54964-0) Normal [facility] MOLECULAR [id number] 23:46:42* Test Item Value Reference Range Interpretation Comme nts POCT Molecular Strep (test c ode = 96999-2) Negative Negative Lab Interpretation (test cod e = 77427-5) Normal [facility] HospitalCT HEAD WO [id number] 21:25:39EXAM: CT HEAD WO CONTRAST HISTORY: Headache, chronic, new features or increased frequency TECHNIQUE: CT of the head was performed without intravenous contrast.Sagittal and coronal reformats were generated. COMPARISON: None. FINDINGS: The ventricles and sulci are normal in caliber and configuration.Nohydrocephalus, midline shift or pathological extra-axial fluid collectionis present. The basal cisterns are unremarkable. There is no acute intracranial hemorrhage or significant mass effect. Noparenchymal attenuation abnormality. The alva-white matter differentiationis preserved. The mastoid aircells and paranasal air sinuses are clear. The calvariumand central skull base are unremarkable.[facility] HospitalXR LUMBAR SPINE 4 [id number] 21:37:46XR LUMBAR SPINE 4 VW, XR CERVICAL [...] coccyx are unremarkable. An IUD overlies the pelvisKell West Regional HospitalXR SACRUM AND [id number] 21:37:46XR LUMBAR SPINE 4 VW, XR CERVICAL [...] coccyx are unremarkable. An IUD overlies the pelvisKell West Regional HospitalXR CERVICAL SPINE 3 [id number] 21:37:46XR LUMBAR SPINE 4 VW, XR CERVICAL [...] coccyx are unremarkable. An IUD overlies the pelvisKell West Regional HospitalVitamin D, [id number] 14:34:26* Test Item Value Reference Range Interpretation Comme nts VIT D 25OH (test code = 19189-0) 24 ng/mL 25-80 L HEAVEN (test code = HEAVEN) Deficiency: <20 ng/mLInsufficiency: 20-24 ng/mLOptimal: 25-80 ng/mL Lab Interpretation (test code = 90828-0) Abnormal [facility] HospitalInsulin, [id number] 17:42:09* Test Item Value Reference Range Interpretation Comme nts Insulin (test code = 9664540722) 10.0 1.9-23.0 Lab Interpretation (test cod e = 50751-2) Normal [facility] HospitalCortisol [id number] 22:15:14* Test Item Value Reference Range Interpretation Comme nts HUE AM (test code = 6652873026) 14.3 ug/dL 4.5-23.0 HEAVEN (test code = HEAVEN) Biotin has been reported to cause a positive bias, interpret results relative to patient's use of biotin. Lab Interpretation (test code = 60953-0) Normal [facility] HospitalFolate2024-05-04 21:18:31* Test Item Value Reference Range Interpretation Comme nts FOLATE SER (test code = 6798344627) 6.5 ng/mL 3.0-20.0 Lab Interpretation (test cod e = 60417-4) [facility], [id number] 21:18:31* Test Item Value Reference Range Interpretation Comme nts VIT B12 (test code = 8599269202) 305 pg/mL 240-930 HEAVEN (test code = HEAVEN) Biotin has been reported to cause a positive bias, interpret results relative to patient's use of biotin. Lab Interpretation (test code = 23854-8) Normal [facility] HospitalFolate2024-05-04 21:18:31* Test Item Value Reference Range Interpretation Comme nts FOLATE SER (test code = 2206080989) 6.5 ng/mL 3.0-20.0 Lab Interpretation (test cod e = 36660-2) [facility] Center[facility]it[facility]12, [id number] 21:18:31* Test Item Value Reference Range Interpretation Comme nts VIT B12 (test code = 2591027375) 305 pg/mL 240-930 HEAVEN (test code = HEAVEN) Biotin has been reported to cause a positive bias, interpret results relative to patient's use of biotin. Lab Interpretation (test code = 18293-3) [facility] CenterGlycosylated Hemoglobin (A1C)2024-03-02 19:20:24* Test Item Value Reference Range Interpretation Comme nts HGB A1C (test code = 4548-4) 5.6 % 4.0-5.7 HEAVEN (test code = HEAVEN) Reference RangesNormal: <5.7%Prediabetes: 5.7 - 6.4%Diabetes: > 6.5% Lab Interpretation (test code = 45193-8) Normal [facility] HospitalGlycosylated Hemoglobin (A1C)2024-03-02 19:20:24* Test Item Value Reference Range Interpretation Comme nts HGB A1C (test code = 4548-4) 5.6 % 4.0-5.7 HEAVEN (test code = HEAVEN) Reference RangesNormal: <5.7%Prediabetes: 5.7 - 6.4%Diabetes: > 6.5% Lab Interpretation (test code = 50978-0) Normal [facility] HospitalThyroid Stimulating [id number] 15:17:56 * Test Item Value Reference Range Interpretation Comme nts TSH (test code = 7974935282) 3.89 0.45-4.70 Lab Interpretation (test cod e = 61944-9) [facility] CenterThy[facility]ulating [id number] 15:17:56 * Test Item Value Reference Range Interpretation Comme nts TSH (test code = 2401737563) 3.89 0.45-4.70 Lab Interpretation (test cod e = 92910-6) [facility] [id number] 15:03:55* Test Item Value Reference Range Interpretation Comme nts FREE T4 (test code = 4334364862) 1.21 0.78-2.20 Lab Interpretation (test cod e = 45951-5) [facility] [id number] 15:03:55* Test Item Value Reference Range Interpretation Comme nts FREE T4 (test code = 0334607632) 1.21 0.78-2.20 Lab Interpretation (test cod e = 27203-3) [facility] CenterLipid Panel (45575)(Total Cholesterol, Triglycerides, HDL)2024-03-02 14:47:49* Test Item Value Reference Range Interpretation Comme nts CHOL (test code = 2322793500) 155 mg/dL 120-200 HDL (test code = 7461510520) 30 mg/dL >=50 L HDLC RATIO (test code = 1370741979) 5.2 <=4.5 H TRIG (test code = 2900748923) 73 mg/dL 30-170 LDL CHOL (test code = 25165-7) 110 mg/dL <=160 VLDL (test code = 9984298623) 15 mg/dL 5-60 Lab Interpretation (test cod e = 06982-7) Abnormal [facility] HospitalLipid Panel (98159)(Total Cholesterol, Triglycerides, HDL)2024-03-02 14:47:49* Test Item Value Reference Range Interpretation Comme nts CHOL (test code = 9938299139) 155 mg/dL 120-200 HDL (test code = 3307771182) 30 mg/dL >=50 L HDLC RATIO (test code = 0450361788) 5.2 <=4.5 H TRIG (test code = 6274468467) 73 mg/dL 30-170 LDL CHOL (test code = 06927-9) 110 mg/dL <=160 VLDL (test code = 9658987862) 15 mg/dL 5-60 Lab Interpretation (test cod e = 63501-3) Abnormal [facility] HospitalComp. Metabolic Panel (93539)2024-03-02 14:47:29* Test Item Value Reference Range Interpretation Comme nts NA (test code = 0643172694) 136 mmol/L 135-145 K (test code = 3095061795) 5.0 mmol/L 3.5-5.0 CL (test code = 7590508419) 100 mmol/L 98-108 CO2 TOTAL (test code = 5155216478) 28 mmol/L 23-31 AGAP (test code = 6957067122) 8 2-16 BUN (test code = 5275586847) 15 mg/dL 7-23 GLUCOSE (test code = 6507269910) 94 mg/dL 70-110 CREATININE (test code = 2160-0) 0.86 mg/dL 0.50-1.04 TOTAL BILI (test code = 2152256308) 1.0 mg/dL 0.1-1.1 CALCIUM (test code = 1977638263) 9.3 mg/dL 8.6-10.6 T PROTEIN (test code = 4462877172) 6.8 g/dL 6.3-8.2 ALBUMIN (test code = 5007111965) 4.1 g/dL 3.5-5.0 ALK PHOS (test code = 5639659256) 85 U/L 34-122 ALTv (test code = 1742-6) 14 U/L 5-35 AST(SGOT) (test code = 6194708512) 19 U/L 13-40 eGFR (test code = 99200-2) 87.7 mL/min/1.73m2 CKD-EPI eGFR (20 21). Assuming creatinine has been stable day-to-day for at least three months, the eGFR indicates Category G2 (60 - 89 mL/min/1.73 m2) [facility] HospitalMagnesium2024-05-04 14:47:29* Test Item Value Reference Range Interpretation Comme nts MAGNESIUM (test code = 9529807031) 2.1 mg/dL 1.7-2.4 Lab Interpretation (test cod e = 43710-7) Normal [facility] HospitalCom. Metabolic Panel (80223)2024-03-02 14:47:29* Test Item Value Reference Range Interpretation Comme nts NA (test code = 5462135875) 136 mmol/L 135-145 K (test code = 5521367830) 5.0 mmol/L 3.5-5.0 CL (test code = 5489004503) 100 mmol/L 98-108 CO2 TOTAL (test code = 6156041214) 28 mmol/L 23-31 AGAP (test code = 3268646254) 8 2-16 BUN (test code = 7011105121) 15 mg/dL 7-23 GLUCOSE (test code = 6526735146) 94 mg/dL 70-110 CREATININE (test code = 2160-0) 0.86 mg/dL 0.50-1.04 TOTAL BILI (test code = 9181382003) 1.0 mg/dL 0.1-1.1 CALCIUM (test code = 5783047211) 9.3 mg/dL 8.6-10.6 T PROTEIN (test code = 0062609879) 6.8 g/dL 6.3-8.2 ALBUMIN (test code = 0096627717) 4.1 g/dL 3.5-5.0 ALK PHOS (test code = 3783257596) 85 U/L 34-122 ALTv (test code = 1742-6) 14 U/L 5-35 AST(SGOT) (test code = 3424910218) 19 U/L 13-40 eGFR (test code = 80492-3) 87.7 mL/min/1.73m2 CKD-EPI eGFR (20 21). Assuming creatinine has been stable day-to-day for at least three months, the eGFR indicates Category G2 (60 - 89 mL/min/1.73 m2) [facility] HospitalMagnesium2024-05-04 14:47:29* Test Item Value Reference Range Interpretation Comme nts MAGNESIUM (test code = 0765453015) 2.1 mg/dL 1.7-2.4 Lab Interpretation (test cod e = 14424-6) Normal [facility] with [id number] 13:49:52* Test Item Value Reference Range Interpretation [...] 33.2 g/dL 31.6-35.1 RDW-SD (test code = 50781-2) 43.2 fL 39.0-49.9 RDW-CV (test code = 788-0) 12.5 % 12.0-15.5 PLT (test code = 777-3) 260 166-358 MPV (test code = 75931-2) 11.2 fL 9.5-12.9 NRBC/100 WBC (test code = 0774862861) 0.0 0.0-10.0 NRBC x10^3 (test code = 2080638330) See_Comment [Automated me ssage] The system which generated this result transmitted reference range: 10*3/?L. The reference range was not used to interpret this result as normal/abnormal. GRAN MAT (NEUT) % (test code = 770-8) 66.2 % IMM GRAN % (test code = 1441703743) 0.30 % LYMPH % (test code = 736-9) 24.9 % MONO % (test code = 5905-5) 6.6 % EOS % (test code = 713-8) 1.5 % BASO % (test code = 706-2) 0.5 % GRAN MAT x10^3(ANC) (test code = 1671505469) 3.90 10*3/uL 1.88-7.09 IMM GRAN x10^3 (test code = 6585020084) 0.00-0.06 LYMPH x10^3 (test code = 731-0) 1.47 10*3/uL 1.32-3.29 MONO x10^3 (test code = 742-7) 0.39 10*3/uL 0.33-0.92 EOS x10^3 (test code = 711-2) 0.09 10*3/uL 0.03-0.39 BASO x10^3 (test code = 704-7) 0.03 10*3/uL 0.01-0.07 [facility] with [id number] 13:49:52* Test Item Value Reference Range Interpretation [...] 33.2 g/dL 31.6-35.1 RDW-SD (test code = 20641-7) 43.2 fL 39.0-49.9 RDW-CV (test code = 788-0) 12.5 % 12.0-15.5 PLT (test code = 777-3) 260 166-358 MPV (test code = 31488-3) 11.2 fL 9.5-12.9 NRBC/100 WBC (test code = 6235878920) 0.0 0.0-10.0 NRBC x10^3 (test code = 4321003003) See_Comment [Automated me ssage] The system which generated this result transmitted reference range: 10*3/?L. The reference range was not used to interpret this result as normal/abnormal. GRAN MAT (NEUT) % (test code = 770-8) 66.2 % IMM GRAN % (test code = 6646057660) 0.30 % LYMPH % (test code = 736-9) 24.9 % MONO % (test code = 5905-5) 6.6 % EOS % (test code = 713-8) 1.5 % BASO % (test code = 706-2) 0.5 % GRAN MAT x10^3(ANC) (test code = 7291001703) 3.90 10*3/uL 1.88-7.09 IMM GRAN x10^3 (test code = 4988352759) 0.00-0.06 LYMPH x10^3 (test code = 731-0) 1.47 10*3/uL 1.32-3.29 MONO x10^3 (test code = 742-7) 0.39 10*3/uL 0.33-0.92 EOS x10^3 (test code = 711-2) 0.09 10*3/uL 0.03-0.39 BASO x10^3 (test code = 704-7) 0.03 10*3/uL 0.01-0.07 [facility] [id number] 20:26:00* Test Item Value Reference Range Interpretation Comme nts POCT PREG (test code = 1605) Negative On board controls acceptable with C Line (test code = 3574) Yes POCT PREG LOT # (test code = 3575) POCT PREG TEST DATE ( test code = 3576) [facility] [id number] 20:26:00* Test Item Value Reference Range Interpretation Comme nts POCT PREG (test code = 1605) Negative On board controls acceptable with C Line (test code = 3574) Yes POCT PREG LOT # (test code = 3575) POCT PREG TEST DATE ( test code = 3576) [facility] HospitalTROPONIN [id number] 04:23:35* Test Item Value Reference Range Interpretation Comme nts TROPONIN I (test code = 2522361227) 0.000 ng/mL <=0.034 HEAVEN (test code = [...] of biotin. Lab Interpretation (test code = 77792-4) Normal [facility] HospitalPOCT [id number] 00:52:00* Test Item Value Reference Range Interpretation Comme nts POCT PREG (test code = 1605) Negative On board controls acceptable with C Line (test code = 3574) Yes POCT PREG LOT # (test code = 3575) [id number] POCT PREG TEST DATE ( test code = 3576) 03/29/24 Lab Interpretation (test cod e = 95251-4) Normal [facility] HospitalTHYROXINE (T4) FREE, DIRECT, [id number] 12:10:00* Test Item Value Reference Range Interpretation Comme nts T4,Free(Direct)-LC (test code = 3024-7) 1.16 ng/dL 0.82-1.77 HEAVEN (test code = HEAVEN) PERFORMED BY [place] [address] [address] ?[facility] [id number] ; [id number]; ; MD Celio Witt ? [facility]-[id number] 12:10:00* Test Item Value Reference Range Interpretation Comme nts TSH-LC (test code = 92155-6) See_Comment [Automated messa ge] The system which generated this result transmitted reference range: 0.450 - 4.500 uIU/mL. The reference range was not used to interpret this result as normal/abnormal. HEAVEN (test code = HEAVEN) PERFORMED BY [employer] [id number] ; [id number]; ; MD Celio Witt ? [facility] HospitalTRIIODOTHYRONINE (T3)-[id number] 12:10:00* Test Item Value Reference Range Interpretation Comme nts Triiodothyronine (T3)-LC (test code = 3053-6) 115 ng/dL 71-180 HEAVEN (test code = HEAVEN) PERFORMED BY [address] [id number] ; [id number]; ; MD Celio Witt ? [facility] HospitalPOCT [id number] 20:57:00* Test Item Value Reference Range Interpretation Comme nts POCT PREG (test code = 1605) Negative On board controls acceptable with C Line (test code = 3574) Yes POCT PREG LOT # (test code = 3575) POCT PREG TEST DATE ( test code = 3576) [facility] [id number] 20:57:00* Test Item Value Reference Range Interpretation Comme nts POCT PREG (test code = 1605) Negative On board controls acceptable with C Line (test code = 3574) Yes POCT PREG LOT # (test code = 3575) POCT PREG TEST DATE ( test code = 3576) [facility] Notes Date/Time Note Provider Source 2025-07-19 10:00:00 Images from the original note were not included. Venipuncture collection performed by clean technique on the left anticubitus. Total of 1 attempts were made. Slight pressure and a bandage/dressing were applied to the site(s). The patient experienced no complications. The following specimens were processed according to instructions and sent to [facility] laboratories per lab order : LT BLUE SST RED LAV 1 PPT DK GREEN (LiHep) DK GREEN (SodH) ALVA DK BLUE (K2) DK BLUE (S) ACD Blood Culture NIPT/NTD Electronically signed by Nathalia Neri 07/19/2025 9:58 AM CDT [facility] 2025-06-02 14:27:56 Patient is awake and alert, oriented x4, speech is clear and appropriate, ambulatory with a steady gait. Advised to seek medical attention for new/prolonged/worsening of symptoms. Respirations even and unlabored, no distress. Shruti Estes RN [facility] 2025-06-02 10:25:13 Patient states: "My doctor put me on an estrogen patch for replacement. I put a patch on Monday. Then I changed it this morning. After 8 am I started having a fullness in my chest. It was hurting. It felt like burning. I haven't had anything to eat since last night. I had sob. I was waiting to see if it would go away. I called my doctor and they said to get checked out" Mandy Dunlap RN [facility] 2025-06-02 09:01:23 Call placed to pt, reports placed patch on Monday. Changed today. Denies any sx's over the weekend. Pt reports "tightness in my chest, like a fullness, feels like heart burn but I have to keep taking deep breaths because I feel short of breath", reports began 1 hour ago. Pt was advised will need to proceed to ER for evaluation. Pt reports will have take her in now. Stephanie Morrow RN [facility] 2025-06-02 08:54:00 Copied from [facility] #[id number]. Topic: Clinical - Medical Advice >> Jun 02, 2025 8:52 AM Patient Antenna Engineer wrote: Iqra Gonzalez [facility] Name: [facility] [id number] female / 40 year old (1985) Patient Specific Symptoms: Started patches on Monday, today is having a "heartburn" feeling in chest. Would like to know if this is normal? Would like to know if it will pass? Would like a return call. Thank you Maria Ines Vazquez [facility] 2025-05-29 09:08:12 Follow-up for refills [facility] 2025-05-27 09:17:15 Images from the original note were not included. Psychiatry: Antidepressants Inxnla5905/26/2025 10:15 AM Manual Review: Verify no changes in dose in the last 3 months Valid encounter within last 12 months Please review and refill if appropriate. Medication just restarted 2 months ago. Benita Mcguire RN [facility] 2025-03-25 14:28:43 Lab orders sent to [facility] per patient request. Benita Mcguire RN [facility] 2025-03-19 07:45:00 Images from the original note were not included. Venipuncture collection performed by clean technique on the left anticubitus. Total of 1 attempts were made. Slight pressure and a bandage/dressing were applied to the site(s). The patient experienced no complications. The following specimens were processed according to instructions and sent to [facility] laboratories per lab order on 03/19/2025 : LT BLUE SST 3SST 1 LT GREEN RED LAV 2 PPT DK GREEN (LiHep) DK GREEN (SodH) ALVA DK BLUE (K2) DK BLUE (S) ACD Blood Culture NIPT/NTD T [facility] 2025-02-03 10:46:26 Images from the original note were not included. Called to inform patient of results and recommendations as detailed below. Patient verbalized understanding. Kalli Cross MD P Cardiology Nurse Stress test is normal. Chest pain is very unlikely to be due to angina. No further cardiac work up is required as of now. Lenore Gallo RN [facility] 2025-01-29 16:40:32 Images from the original note were not included. Notified pt of physician review from test. Pt verbalized understanding. Kalli Cross MD P Cardiology Nurse Stress test is within normal. This is reassuring. Chest pain is very unlikely to be related to angina. No further cardiac workup is required as of now. Joselin Brink RN [facility] 2024-12-10 09:49:46 Please review and sign if appropriate. Last ov 03/01/24 Notes: Buspirone HCI 5 mg TAKE ONE (1) TABLET(S) BY MOUTH TWICE A DAY NEEDED., eRX, Disp-60 tablet, R-1 Dispense: 60 tablet Refills: 1 ordered Pharmacy: [facility] [address] ( ) Last Refilled: 10/02/24 Recent Visits Date Type Provider Dept 03/01/24 Office Visit Rekha Bedoya PA [facility] 03/01/24 Office Visit Rekha Bedoya PA [facility] Showing recent visits within past 540 days with a meds authorizing provider and meeting all other requirements Future Appointments No visits were found meeting these conditions. Showing future appointments within next 150 days with a meds authorizing provider and meeting all other requirements [facility] 2024-10-01 14:19:35 Images from the original note were not included. Please review and sign if appropriate. Name from pharmacy: Buspirone 5mg Tablet Will file in chart as: BUSPIRONE 5 mg tablet Sig: TAKE ONE (1) TABLET(S) BY MOUTH TWICE A DAY NEEDED. Disp: 60 tablet (Pharmacy requested: 60 Each) Refills: 1 (Pharmacy requested: Not specified) Start: 10/01/2024 Class: eRX For: Anxiety, Weight gain Last ordered: 1 month ago (08/06/2024) by DAMI Luo Last refill: 09/01/2024 Rx #: [id number] Provider Review Required Myusgb6410/01/2024 05:35 AM Protocol Details This refill cannot be delegated Valid encounter within last 12 months To be filled at: [facility] [address] AT [place] & [address] Recent Visits Date Type Provider Dept 03/01/24 Office Visit Rekha Bedoya PA [facility] 03/01/24 Office Visit Rekha Bedoya PA [facility] Showing recent visits within past 540 days with a meds authorizing provider and meeting all other requirements Future Appointments No visits were found meeting these conditions. Showing future appointments within next 150 days with a meds authorizing provider and meeting all other requirements [facility] 2024-08-05 09:26:28 Contacted patient to follow up with them regarding their procedure at the [facility] pain procedure suite. The patient reported the following information: 1) Are you currently having any nausea or vomiting? no 2) Do you or have you had any drainage at your injection site? no 3) What was your pain scale prior to your procedure? 2 4) What is your pain scale now? 0 5) Have you had any difficulty urinating? no 6) Do you now or since your procedure have you had any fever? no 7) Is there anything concerning that you would like to share with your provider? no 8) Were you satisfied with your care and experience in the [facility] Pain Procedure Suite? yes AFIA SINGH RN 08/05/2024 9:26 AM Afia Singh RN [facility] 2024-07-30 09:05:49 Images from the original note were not included. Notes: Last Refilled: Name from pharmacy: Buspirone 5mg Tablet Will file in chart as: BUSPIRONE 5 mg tablet Sig: TAKE ONE (1) TABLET BY MOUTH TWO TIMES DAILY NEEDED. Disp: 60 tablet (Pharmacy requested: 60 Each) Refills: 1 (Pharmacy requested: Not specified) Start: 07/30/2024 Class: eRX For: Anxiety, Weight gain Last ordered: 3 months ago (04/24/2024) by DAMI Luo Last refill: 07/04/2024 Rx #: [id number] Provider Review Required Aizhxy3007/30/2024 05:37 AM Protocol Details This refill cannot be delegated Valid encounter within last 12 months To be filled at: [facility] [place], [place] - [address] [place] [address] AT [place] [address] Recent Visits Date Type Provider Dept 03/01/24 Office Visit Rekha Bedoya PA [facility] 03/01/24 Office Visit Rekha Bedoya PA [facility] Showing recent visits within past 540 days with a meds authorizing provider and meeting all other requirements Future Appointments No visits were found meeting these conditions. Showing future appointments within next 150 days with a meds authorizing provider and meeting all other requirements Therese Irwin MA [facility] 2024-07-29 12:21:43 Spoke with patient who verbalizes understanding that pain procedure will be done in clinic without sedation. Instructed to follow physician's instructions regarding blood thinners and NSAIDS. Location [address] [place] [address]. Pt has clinic contact information. Appointment time verified. Arrival time 12:30 given. Lise Cameron RN [facility] 2024-07-17 11:12:43 Refill request received via fax from [facility] pharmacy. Name and verified, Pt was made aware she has one refill left. Pt states she has an appointment with pain management tomorrow. Advised pt if she has picked up all refills she can also take OTC ibuprofen 200mg and take up to 4 as needed for pain until she is seen by the pain management physician. Pt verbalized understanding. Joselin Tomas RN 07/17/2024 11:15 AM Joselin Tomas RN [facility] 2024-06-06 17:17:10 Received radiology services report from [facility], have placed in provider's box and loaded into patients chart. Meg Vargas [facility] 2024-06-06 11:20:00 Addended by: KIA KINGSTON on: 06/17/2024 12:31 PM Modules accepted: Orders [facility] 2024-06-06 10:45:00 Images from the original note were not included. Venipuncture collection performed by clean technique on the inner left anticubitus. Total of 1 attempts were made. Slight pressure and a bandage/dressing were applied to the site(s). The patient experienced no complications. The following specimens were processed according to instructions and sent to [facility] laboratories per lab order on 06/06/2024 : LT BLUE SST 1 RED LAV PPT DK GREEN (LiHep) DK GREEN (SodH) ALVA DK BLUE (K2) DK BLUE (S) ACD Blood Culture NIPT/NTD [facility] 2024-06-05 14:31:39 Pt scheduled with Kia Dos Santos for 06/06/2024. Jovana Dixon [facility] 2024-06-05 13:30:12 Patient was seen by Kia Dos Santos DNP on 03/18/24 Plan: -Follow up in 8 weeks. Consider MRIs and referral to pain clinic. Kai Dos Santos DNP, SUPERVISOR [employer], [employer]OR [employer] Orthopedic Surgery Therese Irwin MA [facility] 2024-06-05 11:46:25 Pt is calling to request MRI for her lower back to be placed Please advice Becky Lowry [facility] 2024-05-31 16:36:34 Name and verified. Will call radiology. Called reading room. No answer. Dr. Perla advised. Will need to wait for finalized result. Pt advised and verbalized understanding. LISA MATOS RN 05/31/2024 4:37 PM Lisa Matos RN [facility] 2024-05-31 13:33:48 Pt requesting a call to go over her results. Tika Plunkett [facility] 2024-05-21 15:51:34 Every 6 months. 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 Gordon. For jose luis's thyroiditis I recommend eating [...] with a counselor please let me know. [facility] 2024-05-15 13:47:52 Please review and advise. XIOMARA NOV not scheduled Deann Gamboa LVN [facility] 2024-04-24 07:34:13 Last Refilled: Disp Refills Start End GARRY busPIRone 5 mg tablet 60 tablet 1 03/01/2024 -- No Sig: Take 1 tablet by mouth 2 (two) times daily as needed (anxiety). Sent to pharmacy as: busPIRone 5 mg tablet (BUSPAR) Class: eRX Route: Oral Order: [id number] Date/Time Signed: 03/01/2024 14:32 E-Prescribing Status: Receipt confirmed by pharmacy (03/01/2024 2:32 PM CDT) Recent Visits Date Type Provider Dept 03/01/24 Office Visit Rekha Bedoya PA [facility] 03/01/24 Office Visit Rekha Bedoya PA [facility] 01/12/23 Office Visit Rekha Bedoya PA [facility] 12/15/22 Office Visit Rekha Bedoya PA [facility] Showing recent visits within past 540 days with a meds authorizing provider and meeting all other requirements Future Appointments No visits were found meeting these conditions. Showing future appointments within next 150 days with a meds authorizing provider and meeting all other requirements Abida Gunter [facility] 2024-04-16 13:33:45 Images from the [...] DAMI Luo Last refill: 03/01/2024 Rx #: [id number] Provider Review Required - Methocarbamol [id number]/16/2024 01:32 PM Protocol Details This refill cannot be delegated Manual Review: Methocarbamol for ortho staff to refill only Valid encounter within last 12 months To be filled at: [facility] [address] AT [place] [address] Recent Visits Date Type Provider Dept 03/01/24 Office Visit Rekha Bedoya PA [facility] 03/01/24 Office Visit Rekha Bedoya PA [facility] 01/12/23 Office Visit Rekha Bedoya PA [facility] 12/15/22 Office Visit Rekha Bedoya PA [facility] Showing recent visits within past 540 days with a meds authorizing provider and meeting all other requirements Future Appointments No visits were found meeting these conditions. Showing future appointments within next 150 days with a meds authorizing provider and meeting all other requirements Marika Borjas LVN [facility] 2024-03-28 18:20:00 Addended by: TOMAS GARCIAS on: 03/28/2024 07:15 PM Modules accepted: Orders [facility] 2024-03-02 08:00:00 Images from the original note were not included. Venipuncture collection performed by clean technique on the right anticubitus. Total of 1 attempts were made. Slight pressure and a bandage/dressing were applied to the site(s). The patient experienced no complications. The following specimens were processed according to instructions and sent to [facility] laboratories per lab order on 03/02/2024 : LT BLUE SST 5 RED LAV 2 PPT DK GREEN (LiHep) DK GREEN (SodH) 1lt gr ALVA DK BLUE (K2) DK BLUE (S) ACD Blood Culture NIPT/NTD [facility] 2024-03-01 15:00:00 Pt was suppose to leave sample with nurse, not come to lab. Briana Kan [facility] 2024-02-26 13:19:33 Refill denied: Needs appt Requested Prescriptions Pending Prescriptions Disp Refills BUSPIRONE 5 mg tablet [Pharmacy Med Name: Buspirone 5mg Tablet] 60 tablet 6 Sig: TAKE ONE (1) TABLET BY MOUTH 2 (TWO) TIMES DAILY NEEDED (ANXIETY). Last fill date: 01/12/23 Deann Gamboa LVN [facility]
[2025-07-24] MEDS ORDERED: ACYCLOVIR 400 MG TABLET ONE (21:21)
[2025-07-24] MEDS ORDERED: ACETAMINOPHEN 500 MG TAB ONE (21:21)
[2025-07-24] MEDS ORDERED: GABAPENTIN 300 MG CAP ONE (21:21)
[2025-07-24] MEDS ORDERED: TRAMADOL HCL 50 MG TAB ONE (21:22)
--- NOTE | 2025-07-24 21:39 | ER ---
Nurse's Notes [facility] Name: Giuliana Gonzalez Age: 40 yrs Sex: Female : 1985 Arrival Date: 07/24/2025 Time: 20:00 Bed 9 Private MD: Diagnosis: Zoster without complications;Pain in left leg Presentation: 07/24 20:30 Chief complaint: Patient states: Started itching on 07/14 then developed a rash and over me1 the past few days the rash has formed blisters; located on left medial calf, left medial and anterior thigh. Pain is 8/10, "burning, stinging, "shocking". Coronavirus screen: At this time, the client does not indicate any symptoms associated with coronavirus-19. Ebola Screen: No symptoms or risks identified at this time. Initial Sepsis Screen: Does the patient meet any 2 criteria? No. Patient's initial sepsis screen is negative. Does the patient have a suspected source of infection? No. Patient's initial sepsis screen is negative. Risk Assessment: Do you want to hurt yourself or someone else? Patient reports no desire to harm self or others. Onset of symptoms was July 14, 2025. 20:30 Method Of Arrival: Ambulatory me1 20:30 Acuity: MARLENI 4 me1 Triage Assessment: 21:50 General: Appears in no apparent distress. Behavior is calm, cooperative. Pain: kd3 Complains of pain in pelvis. 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 - Infectious Disease History:: Denies. - Social history:: Smoking status: Patient reports the use of cigarette tobacco products, denies chronic smoking, but will smoke occasionally. Screenin:50 [facility] ED Fall Risk Assessment (Adult) History of falling in the last 3 months, kd3 including since admission No falls in past 3 months (0 pts) Confusion or Disorientation No (0 pts) Intoxicated or Sedated No (0 pts) Impaired Gait No (0 pts) Mobility Assist Device Used No (0 pt) Altered Elimination No (0 pt) Score/Fall Risk Level 0 - 2 = Low Risk Maintained a safe environment. Abuse screen: Denies threats or abuse. Denies injuries from another. Nutritional screening: No deficits noted. Tuberculosis screening: No symptoms or risk factors identified. Vital Signs: 20:30 BP 137 / 92; Pulse 87; Resp 17; Temp 98.2; Pulse Ox 99% ; Weight 85.28 kg; Height 5 ft. me1 1 in. ; Pain 8/10; 20:30 Body Mass Index 35.52 (85.28 kg, 154.94 cm) me1 20:30 Pain Scale: Adult nv1 ED Course: 20:04 Patient arrived in ED. gm2 20:35 Triage completed. me1 20:35 Arm band placed on Patient placed in waiting room. me1 20:48 Brooklynn Zuñiga RN is Primary Nurse. kd3 20:55 Tim Moore [facility]C [facility]. cp 20:55 Zuleika Akhtar MD is Attending Physician. cp 21:51 Patient has correct armband on for positive identification. Provided Education on: kd3 medications . 21:51 No provider procedures requiring assistance completed. Patient did not have IV access kd3 during this emergency room visit. Administered Medications: 21:25 Drug: Neurontin PO 300 mg PO once Route: PO; kd3 21:59 Follow up: Response: No adverse reaction kd3 21:25 Drug: traMADol PO 50 mg PO once Route: PO; kd3 21:59 Follow up: Response: No adverse reaction; Pain is decreased kd3 21:25 Drug: Acyclovir PO 800 mg PO once Route: PO; kd3 21:59 Follow up: Response: No adverse reaction kd3 21:25 Drug: Acetaminophen PO 1000 mg PO once Route: PO; kd3 21:59 Follow up: Response: No adverse reaction; Pain is decreased kd3 Outcome: 21:39 Discharge ordered by . cp 21:51 Discharged to home ambulatory, kd3 21:51 Condition: stable 21:51 Discharge instructions given to patient, Instructed on discharge instructions, follow up and referral plans. Demonstrated understanding of instructions, follow-up care, 21:59 Patient left the ED. kd3 Signatures: Tim Moore PA-C PA-C cp Doucette, Kyli, RN RN kd3 Coby Berg RN RN me1 Kimberlee Davenport gm2
--- NOTE | 2025-07-24 21:39 | EDPHYS ---
Physician Documentation [facility] Name: Giuliana Gonzalez Age: 40 yrs Sex: Female : 1985 Arrival Date: 07/24/2025 Time: 20:00 Bed 9 Private MD: ED Physician Zuleika Akhtar HPI: 07/24 21:20 This 40 yrs old Female presents to ER via Ambulatory with complaints of Leg Pain, Pt cp thinks she has shingles. 21:20 The patient presents with Patient is a 40-year-old female who presents to the emergency cp department with concern for rash to left leg. Patient reports on 07/14 she started having some pain and itching to her left leg that started in the knee area. She thought maybe she had pulled a muscle. Over the next several days she noticed a rash to the anterior part of her left knee. She reports since she has noticed this rash spreading with several areas on the anterior and lateral side of her upper leg and on the medial side of her calf area. Patient reports pain, burning and itching to these areas. 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 - Infectious Disease History:: Denies. - Social history:: Smoking status: Patient reports the use of cigarette tobacco products, denies chronic smoking, but will smoke occasionally. ROS: 21:25 MS/extremity: Positive for pain, rash, tenderness, of the left leg, cp 21:25 Constitutional: Negative for body aches, chills, fever, poor PO intake, cp 21:25 Cardiovascular: Negative for chest pain, palpitations, 21:25 Respiratory: Negative for cough, shortness of breath, wheezing, 21:25 Abdomen/GI: Negative for abdominal pain, vomiting, diarrhea, constipation, 21:25 Neuro: Negative for altered mental status, weakness, 21:25 All other systems are negative, Exam: 21:25 Head/Face: Normocephalic, atraumatic. cp 21:25 Constitutional: The patient appears in no acute distress, alert, awake, non-toxic, well developed, well nourished, overweight 21:25 Eyes: Periorbital structures: appear normal, Conjunctiva: normal, no exudate, no injection, Sclera: no appreciated abnormality, Lids and lashes: appear normal, bilaterally, 21:25 ENT: External ear(s): are unremarkable, Nose: is normal, Mouth: Lips: moist, Oral mucosa: moist, Posterior pharynx: Airway: no evidence of obstruction, patent, 21:25 Chest/axilla: Inspection: normal, 21:25 Cardiovascular: Rate: normal, Pulses: Pulses are 2+ in left dorsalis pedis artery. 21:25 Respiratory: the patient does not display signs of respiratory distress, Respirations: normal, no use of accessory muscles, no retractions, 21:25 Abdomen/GI: Exam negative for discomfort, distension, guarding, Inspection: abdomen appears normal, 21:25 Back: pain, that is mild, of the left low back, 21:25 Musculoskeletal/extremity: Extremities: noted in the left leg: Several areas of rash that appear as grouped papules with erythema and associated tenderness to palpation. No surrounding erythema no drainage expressed from these areas, Vital Signs: 20:30 BP 137 / 92; Pulse 87; Resp 17; Temp 98.2; Pulse Ox 99% ; Weight 85.28 kg; Height 5 ft. me1 1 in. ; Pain 8/10; 20:30 Body Mass Index 35.52 (85.28 kg, 154.94 cm) me1 20:30 Pain Scale: Adult me1 MDM: 20:55 Medical Screening Exam initiated 21:20 Differential diagnosis: herpes zoster, cellulitis, abscess, dermatitis. 21:39 Data reviewed: vital signs, nurses notes, and as a result, I will discharge patient. 21:39 I considered the following discharge prescriptions or medication management in the emergency department Medications were administered in the Emergency Department. See MAR. Counseling: I had a detailed discussion with the patient and/or guardian regarding the historical points, exam findings, and any diagnostic results supporting the discharge/admit diagnosis, the need for outpatient follow up, a family practitioner, to return to the emergency department if symptoms worsen or persist or if there are any questions or concerns that arise at home. Response to treatment: the patient's symptoms have mildly improved after treatment, and as a result, I will discharge patient. Administered Medications: : Drug: Neurontin PO 300 mg PO once Route: PO; kd3 21:59 Follow up: Response: No adverse reaction kd3 21:25 Drug: traMADol PO 50 mg PO once Route: PO; kd3 :59 Follow up: Response: No adverse reaction; Pain is decreased kd3 21:25 Drug: Acyclovir PO 800 mg PO once Route: PO; kd3 :59 Follow up: Response: No adverse reaction kd3 21:25 Drug: Acetaminophen PO 1000 mg PO once Route: PO; kd3 21:59 Follow up: Response: No adverse reaction; Pain is decreased kd3 Disposition: 07/25 21:04 Chart complete. cp Disposition Summary: 07/24/25 21:39 Discharge Ordered Notes: Location: Home cp Problem: new cp Symptoms: have improved cp Condition: Stable cp Diagnosis - Zoster without complications cp - Pain in left leg cp Followup: cp - With: Private Physician - When: 5 - 6 days - Reason: Recheck today's complaints Discharge Instructions: - Discharge Summary Sheet cp - Musculoskeletal Pain cp - Neuropathic Pain cp - Shingles cp Forms: - Medication Reconciliation Form cp - Antibiotic Education cp - Prescription Opioid Use cp - Patient Portal Instructions cp - Leadership Thank You Letter cp Prescriptions: - valacyclovir 1 gram Oral tablet - take 1 tablet ORAL route every 8 hours for 7 days; 21 tablet; Refills: 0, cp Product Selection Permitted - capsaicin 0.1 % Topical cream - apply 1 application TOPICAL route every 12 hours As needed do not wash area for cp at least 30 min after application, apply to area of rash; 45 gram tube; Refills: 0, Product Selection Permitted - Neurontin 300 mg Oral Capsule - take 1 capsule ORAL route every 8 hours; 30 capsule; Refills: 0, Product cp Selection Permitted Signatures: Tim Moore PA-C PA-C cp Brooklynn Zuñiga RN RN kd3 Coby Berg RN RN me1 Corrections: (The following items were deleted from the chart) 21:04 07/24 21:29 Data reviewed: vital signs, nurses notes, and as a result, I will discharge cp patient, cp
[2025-07-24 22:13] VITALS: BP 137/92; TEMP 98.2; O2SAT 99
== END 2025-07-24 21:59 | disposition home or self-care (01) ==
LOC: ER 20:00
DX: B02.9 Zoster without complications (principal)
CPT/HCPCS: 99283